=== PATIENT | male | born 1940 | race Caucasian/White ===

== ENCOUNTER → 2020-03-09 14:45 | Outpatient (BNVA) | payer MEDICARE, SELFPAY | PROVIDERS: PCP Internal Medicine; Referring Provider Internal Medicine; Visit Provider Internal Medicine Endocrinology, Diabetes & Metabolism | DX: E11.649 Type 2 diabetes mellitus with hypoglycemia without coma (principal); E11.22 Type 2 diabetes mellitus with diabetic chronic kidney disease; N18.4 Chronic kidney disease, stage 4 (severe); E11.40 Type 2 diabetes mellitus with diabetic neuropathy, unspecified; D64.9 Anemia, unspecified; E78.5 Hyperlipidemia, unspecified; Z79.4 Long term (current) 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 | CPT/HCPCS: 99214 ==

== ENCOUNTER 2020-04-10 09:32 | Outpatient (REF) | payer MEDICARE, SELFPAY ==
[2020-04-10 11:44] LABS: Imm Gran Abs Auto 0.01 X10*3/uL (0.00-0.03); Imm Gran Pct Auto 0.2 % (0.0-0.4)
[2020-04-10 11:46] LABS: Basophils Percent Auto 0.6 % (0-2); Eosinophils Absolute Auto 0.1 X10*3/uL (0.0-0.4); Eosinophils Percent Auto 2.4 % (0-4); Hematocrit 40.6 % (42-52); Hemoglobin 12.9 g/dl (14.0-18.0); Lymphocytes Absolute Auto 1.5 X10*3/uL (1.2-4.9); Lymphocytes Percent Auto 31.8 % (20-40); Mean Corpuscular HGB Conc 31.8 g/dl (31.0-36.0); Mean Corpuscular Hemoglobin 30.6 pg (27.0-33.0); Mean Corpuscular Volume 96.2 fL (80-98); Monocytes Absolute Auto 0.4 X10*3/uL (0.1-1.2); Monocytes Percent Auto 8.6 % (2-11); Neutrophils Absolute Auto 2.6 X10*3/uL (2.0-8.3); Neutrophils Percent Auto 56.4 % (45-73); Platelet Count 130 X10*3/uL (160-400); Red Blood Count 4.22 X10*6/uL (4.60-5.80); White Blood Count 4.7 X10*3/uL (4.8-10.8)
[2020-04-10 11:52] LABS: Red Cell Distribution Width 13.2 % (11.0-16.0)
[2020-04-10 11:59] LABS: Estimated Average Glucose 103 mg/dL; Hemoglobin A1C 113.7539 umol/L; Hemoglobin A1c % 5.2 %
[2020-04-10 12:03] LABS: Alanine Aminotransferase 17 U/L (0-40); Albumin Level 4.3 g/dL (3.5-5.0); Alkaline Phosphatase 58 U/L (39-117); Anion Gap 15 (12-20); Aspartate Amino Transferase 22 U/L (5-37); Bilirubin Total 0.9 mg/dL (0.0-1.0); Blood Urea Nitrogen 36 mg/dL (9-16); Calcium 9.2 mg/dL (8.4-10.2); Carbon Dioxide 27 mmol/L (22-29); Chloride 104 mmol/L (96-108); Cholesterol 212 mg/dL; Estimated Glomerular Filt Rate 30; Glucose Random 109 mg/dL (60-115); HDL Cholesterol 60 mg/dL; LDL Cholesterol Calculated 139 mg/dl; Potassium 4.4 mmol/l (3.3-5.1); Sodium 142 mmol/L (135-145); Total Protein 6.9 g/dL (6.5-8.0); Triglycerides 68 mg/dL
[2020-04-10 12:25] LABS: Thyroid Stimulating Hormone 3.48 mIU/mL (0.32-4.0)
[2020-04-10 12:30] LABS: Folate > 20.0 ng/mL (> or = 4.0); Vitamin B12 > 2000 pg/mL (200-900)
[2020-04-10 12:37] LABS: Creatinine Urine 66.45 mg/dL; Microalbum/Creatinine Ratio Ur 10.5 ug/mg cr
== END 2020-04-10 09:33 | disposition home or self-care (01) ==
LOC: HO.HMGCLDS 09:32
PROVIDERS: PCP Internal Medicine; Visit Provider Internal Medicine
DX: E11.65 Type 2 diabetes mellitus with hyperglycemia (principal); E78.00 Pure hypercholesterolemia, unspecified
CPT/HCPCS: 36415; 80053; 80061; 82043; 82607; 82746; 83036; 84443; 85025

== ENCOUNTER → 2020-05-21 11:38 | Outpatient (BNVA) | payer MEDICARE, SELFPAY | PROVIDERS: PCP Internal Medicine; Referring Provider Internal Medicine; Visit Provider Internal Medicine Cardiovascular Disease | DX: Z13.89 Encounter for screening for other disorder (principal) | CPT/HCPCS: Q3014 ==

== ENCOUNTER → 2020-07-13 12:38 | Outpatient (BNVA) | payer MEDICARE, SELFPAY | PROVIDERS: PCP Internal Medicine; Visit Provider Internal Medicine Endocrinology, Diabetes & Metabolism | DX: Z13.89 Encounter for screening for other disorder (principal) | CPT/HCPCS: Q3014 ==

== ENCOUNTER 2020-08-29 09:48 | Outpatient (REF) | payer MEDICARE, SELFPAY ==
[2020-08-29 11:11] LABS: MANUAL DIFF FLAG NO
[2020-08-29 11:26] LABS: Basophils Percent Auto 0.5 % (0-2); Eosinophils Absolute Auto 0.1 X10*3/uL (0.0-0.4); Eosinophils Percent Auto 1.7 % (0-4); Hematocrit 37.4 % (42-52); Imm Gran Abs Auto 0.03 X10*3/uL (0.00-0.03); Imm Gran Pct Auto 0.4 % (0.0-0.4); Lymphocytes Absolute Auto 1.2 X10*3/uL (1.2-4.9); Lymphocytes Percent Auto 14.5 % (20-40); Mean Corpuscular HGB Conc 32.1 g/dl (31.0-36.0); Mean Corpuscular Hemoglobin 30.1 pg (27.0-33.0); Mean Corpuscular Volume 93.7 fL (80-98); Mean Platelet Volume 12.3 fL (9.4-12.4); Monocytes Absolute Auto 0.5 X10*3/uL (0.1-1.2); Monocytes Percent Auto 6.2 % (2-11); Neutrophils Absolute Auto 6.3 X10*3/uL (2.0-8.3); Neutrophils Percent Auto 76.7 % (45-73); Platelet Count 214 X10*3/uL (160-400); Red Blood Count 3.99 X10*6/uL (4.60-5.80); Red Cell Distribution Width 13.5 % (11.0-16.0); White Blood Count 8.2 X10*3/uL (4.8-10.8)
[2020-08-29 11:46] LABS: Estimated Average Glucose 105 mg/dL; Hemoglobin A1c % 5.3 %
[2020-08-29 11:48] LABS: Alanine Aminotransferase 11 U/L (0-40); Albumin Level 4.2 g/dL (3.5-5.0); Alkaline Phosphatase 82 U/L (39-117); Anion Gap 19 (12-20); Aspartate Amino Transferase 19 U/L (5-37); Bilirubin Total 1.3 mg/dL (0.0-1.0); Blood Urea Nitrogen 36 mg/dL (9-16); Calcium 9.4 mg/dL (8.4-10.2); Carbon Dioxide 25 mmol/L (22-29); Chloride 97 mmol/L (96-108); Cholesterol 216 mg/dL; Estimated Glomerular Filt Rate 27; Glucose Fasting 161 mg/dL (60-99); HDL Cholesterol 37 mg/dL; LDL Cholesterol Calculated 148 mg/dl; Potassium 3.9 mmol/L (3.3-5.1); Sodium 137 mmol/L (135-145); Total Protein 6.9 g/dL (6.5-8.0); Triglycerides 157 mg/dL; Uric Acid 9.6 mg/dL (3.4-7.0)
[2020-08-29 11:54] LABS: Microalbum/Creatinine Ratio Ur 7.4 ug/mg cr
[2020-08-29 12:42] LABS: Vitamin B12 > 2000 pg/mL (200-900)
[2020-08-29 13:18] LABS: Thyroid Stimulating Hormone 2.23 uIU/mL (0.32-4.0)
[2020-08-30 06:37] LABS: LDL Cholesterol Direct 152 mg/dL (<100)
== END 2020-08-29 09:49 | disposition home or self-care (01) ==
LOC: HO.HMGCLDS 09:48
PROVIDERS: PCP Internal Medicine; Visit Provider Internal Medicine Endocrinology, Diabetes & Metabolism
DX: M25.549 Pain in joints of unspecified hand (principal); E78.00 Pure hypercholesterolemia, unspecified; I25.10 Atherosclerotic heart disease of native coronary artery without angina pectoris; N18.4 Chronic kidney disease, stage 4 (severe); E11.65 Type 2 diabetes mellitus with hyperglycemia; E11.649 Type 2 diabetes mellitus with hypoglycemia without coma; E11.42 Type 2 diabetes mellitus with diabetic polyneuropathy; E11.22 Type 2 diabetes mellitus with diabetic chronic kidney disease
CPT/HCPCS: 36415; 80053; 80061; 82043; 82607; 83036; 83721; 84443; 84550; 85025

== ENCOUNTER 2020-09-10 09:11 | Outpatient (REF) | payer MEDICARE, SELFPAY ==
[2020-09-10 11:30] LABS: MANUAL DIFF FLAG NO
[2020-09-10 11:46] LABS: Basophils Percent Auto 0.5 % (0-2); Eosinophils Absolute Auto 0.1 X10*3/uL (0.0-0.4); Eosinophils Percent Auto 1.8 % (0-4); Hematocrit 35.9 % (42-52); Hemoglobin 11.6 g/dl (14.0-18.0); Imm Gran Abs Auto 0.01 X10*3/uL (0.00-0.03); Imm Gran Pct Auto 0.2 % (0.0-0.4); Lymphocytes Absolute Auto 1.5 X10*3/uL (1.2-4.9); Lymphocytes Percent Auto 26.4 % (20-40); Mean Corpuscular HGB Conc 32.3 g/dl (31.0-36.0); Mean Corpuscular Hemoglobin 29.9 pg (27.0-33.0); Mean Corpuscular Volume 92.5 fL (80-98); Mean Platelet Volume 12.2 fL (9.4-12.4); Monocytes Absolute Auto 0.5 X10*3/uL (0.1-1.2); Neutrophils Absolute Auto 3.5 X10*3/uL (2.0-8.3); Neutrophils Percent Auto 62.1 % (45-73); Platelet Count 171 X10*3/uL (160-400); Red Blood Count 3.88 X10*6/uL (4.60-5.80); Red Cell Distribution Width 13.5 % (11.0-16.0); White Blood Count 5.6 X10*3/uL (4.8-10.8)
[2020-09-10 11:54] LABS: Cholesterol 208 mg/dL; HDL Cholesterol 37 mg/dL; LDL Cholesterol Calculated 138 mg/dl; Triglycerides 168 mg/dL
[2020-09-10 12:10] LABS: Alanine Aminotransferase 14 U/L (0-40); Albumin Level 4.1 g/dL (3.5-5.0); Alkaline Phosphatase 79 U/L (39-117); Anion Gap 15 (12-20); Aspartate Amino Transferase 20 U/L (5-37); Bilirubin Total 0.9 mg/dL (0.0-1.0); Blood Urea Nitrogen 31 mg/dL (9-16); Calcium 9.5 mg/dL (8.4-10.2); Carbon Dioxide 28 mmol/L (22-29); Chloride 96 mmol/L (96-108); Estimated Glomerular Filt Rate 27; Glucose Fasting 182 mg/dL (60-99); Potassium 4.1 mmol/L (3.3-5.1); Sodium 135 mmol/L (135-145); Total Protein 6.8 g/dL (6.5-8.0); Uric Acid 9.7 mg/dL (3.4-7.0)
[2020-09-10 12:14] LABS: Thyroid Stimulating Hormone 3.58 uIU/mL (0.32-4.0)
[2020-09-10 12:29] LABS: Estimated Average Glucose 111 mg/dL; Hemoglobin A1c % 5.5 %
[2020-09-10 12:39] LABS: Microalbumin Urine < 5.0 mg/L
[2020-09-10 12:50] LABS: Vitamin B12 > 2000 pg/mL (200-900)
[2020-09-11 08:18] LABS: LDL Cholesterol Direct 139 mg/dL (<100)
== END 2020-09-10 09:12 | disposition home or self-care (01) ==
LOC: HO.HMGCLDS 09:11
PROVIDERS: PCP Internal Medicine; Referring Provider Internal Medicine Endocrinology, Diabetes & Metabolism; Visit Provider Internal Medicine
DX: E11.42 Type 2 diabetes mellitus with diabetic polyneuropathy (principal); E11.65 Type 2 diabetes mellitus with hyperglycemia; E11.649 Type 2 diabetes mellitus with hypoglycemia without coma; N18.4 Chronic kidney disease, stage 4 (severe); E78.00 Pure hypercholesterolemia, unspecified; I25.10 Atherosclerotic heart disease of native coronary artery without angina pectoris; M25.549 Pain in joints of unspecified hand
CPT/HCPCS: 36415; 80053; 80061; 82043; 82607; 83036; 83721; 84443; 84550; 85025

== ENCOUNTER → 2020-11-14 13:30 | Outpatient (BNVA) | payer MEDICARE, SELFPAY | PROVIDERS: PCP Internal Medicine; Visit Provider Internal Medicine Endocrinology, Diabetes & Metabolism | CPT/HCPCS: Q3014 ==

== ENCOUNTER 2021-03-13 09:20 | Outpatient (REF) | payer MEDICARE, SELFPAY ==
[2021-03-13 11:20] LABS: MANUAL DIFF FLAG NO
[2021-03-13 11:26] LABS: Basophils Percent Auto 0.4 % (0-2); Eosinophils Absolute Auto 0.1 X10*3/uL (0.0-0.4); Eosinophils Percent Auto 2.8 % (0-4); Hematocrit 34.5 % (42-52); Hemoglobin 11.3 g/dl (14.0-18.0); Imm Gran Abs Auto 0.01 X10*3/uL (0.00-0.03); Imm Gran Pct Auto 0.2 % (0.0-0.4); Immature Retic Fraction 8.8 % (2.3-13.4); Lymphocytes Absolute Auto 1.9 X10*3/uL (1.2-4.9); Lymphocytes Percent Auto 37.8 % (20-40); Mean Corpuscular HGB Conc 32.8 g/dl (31.0-36.0); Mean Corpuscular Hemoglobin 31.5 pg (27.0-33.0); Mean Corpuscular Volume 96.1 fL (80-98); Mean Platelet Volume 12.8 fL (9.4-12.4); Monocytes Absolute Auto 0.5 X10*3/uL (0.1-1.2); Neutrophils Absolute Auto 2.5 X10*3/uL (2.0-8.3); Neutrophils Percent Auto 49.8 % (45-73); Platelet Count 128 X10*3/uL (160-400); Red Blood Count 3.59 X10*6/uL (4.60-5.80); Red Cell Distribution Width 13.1 % (11.0-16.0); Retic HGB Equivalent 35.1 pg (30.0-35.0); Reticulocyte Percent 1.3 % (0.5-1.8); Reticulocytes Absolute 0.047 X10*6/uL (0.026-0.095)
[2021-03-13 11:48] LABS: B Type Natriuretic Peptide 83 pg/mL (<100)
[2021-03-13 11:56] LABS: Alanine Aminotransferase 17 U/L (0-40); Alkaline Phosphatase 47 U/L (39-117); Anion Gap 12 (12-20); Aspartate Amino Transferase 23 U/L (5-37); Bilirubin Total 0.8 mg/dL (0.0-1.0); Blood Urea Nitrogen 28 mg/dL (9-16); Calcium 9.6 mg/dL (8.4-10.2); Carbon Dioxide 29 mmol/L (22-29); Chloride 104 mmol/L (96-108); Cholesterol 202 mg/dL; Estimated Glomerular Filt Rate 30; Glucose Random 105 mg/dL (60-115); HDL Cholesterol 37 mg/dL; Iron 62 mcg/dL (45-160); LDL Cholesterol Calculated 140 mg/dl; Percent Iron Saturation 26 % (15-50); Potassium 3.9 mmol/L (3.3-5.1); Sodium 141 mmol/L (135-145); Total Iron Binding Capacity 239 mcg/dL (228-428); Total Protein 6.4 g/dL (6.5-8.0); Triglycerides 126 mg/dL; Unsaturated Iron Binding 177 ug/dL; Uric Acid 7.9 mg/dL (3.4-7.0)
[2021-03-13 12:02] LABS: Creatinine Urine 80.51 mg/dL; Microalbumin Urine < 5.0 mg/L
[2021-03-13 12:05] LABS: Ferritin 200 ng/mL (20-250); Free T4 (Free Thyroxine) 0.86 ng/dL (0.71-1.85); Thyroid Stimulating Hormone 2.59 uIU/mL (0.32-4.0); Vitamin D 25-OH Total 96.6 ng/mL (>30)
[2021-03-13 12:19] LABS: Folate > 20.0 ng/mL (> or = 4.0); Vitamin B12 > 2000 pg/mL (200-900)
[2021-03-13 12:20] LABS: Estimated Average Glucose 94 mg/dL; Hemoglobin A1c % 4.9 %
== END 2021-03-13 09:21 | disposition home or self-care (01) ==
LOC: HO.HMGCLDS 09:20
PROVIDERS: PCP Internal Medicine; Visit Provider Internal Medicine
DX: E11.65 Type 2 diabetes mellitus with hyperglycemia (principal); E11.22 Type 2 diabetes mellitus with diabetic chronic kidney disease; N18.4 Chronic kidney disease, stage 4 (severe); E78.00 Pure hypercholesterolemia, unspecified; I42.9 Cardiomyopathy, unspecified
CPT/HCPCS: 36415; 80053; 80061; 82043; 82306; 82607; 82728; 82746; 83036; 83540; 83880; 84439; 84443; 84550; 85025; 85045

== ENCOUNTER 2021-09-16 08:38 | Outpatient (REF) | payer MEDICARE, SELFPAY ==
[2021-09-16 11:13] LABS: MANUAL DIFF FLAG NO
[2021-09-16 11:29] LABS: Basophils Percent Auto 0.4 % (0-2); Eosinophils Absolute Auto 0.2 X10*3/uL (0.0-0.4); Eosinophils Percent Auto 3.2 % (0-4); Hematocrit 35.9 % (42.0-52.0); Hemoglobin 11.2 g/dl (14.0-18.0); Imm Gran Abs Auto 0.01 X10*3/uL (0.00-0.03); Imm Gran Pct Auto 0.2 % (0.0-0.4); Lymphocytes Absolute Auto 1.5 X10*3/uL (1.2-4.9); Lymphocytes Percent Auto 31.6 % (20-40); Mean Corpuscular HGB Conc 31.2 g/dl (31.0-36.0); Mean Corpuscular Hemoglobin 30.4 pg (27.0-33.0); Mean Corpuscular Volume 97.6 fL (80.0-98.0); Monocytes Absolute Auto 0.4 X10*3/uL (0.1-1.2); Monocytes Percent Auto 7.6 % (2-11); Neutrophils Absolute Auto 2.7 x10*3/uL (2.0-8.3); Platelet Count 104 X10*3/uL (160-400); Red Blood Count 3.68 X10*6/uL (4.60-5.80); Red Cell Distribution Width 13.4 % (11.0-16.0); White Blood Count 4.7 X10*3/uL (4.8-10.8)
[2021-09-16 11:44] LABS: Alanine Aminotransferase 15 U/L (0-40); Alkaline Phosphatase 53 U/L (39-117); Anion Gap 13 (12-20); Aspartate Amino Transferase 22 U/L (5-37); Bilirubin Total 0.8 mg/dL (0.0-1.0); Blood Urea Nitrogen 27 mg/dL (9-16); Calcium 9.6 mg/dL (8.4-10.2); Carbon Dioxide 28 mmol/L (22-29); Chloride 104 mmol/L (96-108); Cholesterol 211 mg/dL; Estimated Glomerular Filt Rate 29; Glucose Random 136 mg/dL (60-115); HDL Cholesterol 47 mg/dL; LDL Cholesterol Calculated 141 mg/dl; Sodium 141 mmol/L (135-145); Total Protein 6.5 g/dL (6.5-8.0); Triglycerides 118 mg/dL
[2021-09-16 12:02] LABS: Estimated Average Glucose 105 mg/dL; Hemoglobin A1c % 5.3 %
[2021-09-16 12:10] LABS: Free T4 (Free Thyroxine) 0.91 ng/dL (0.71-1.85); Thyroid Stimulating Hormone 1.82 uIU/mL (0.32-4.0)
[2021-09-16 12:15] LABS: Folate 19.8 ng/mL (> or = 4.0); Vitamin B12 > 2000 pg/mL (200-900)
== END 2021-09-16 08:39 | disposition home or self-care (01) ==
LOC: HO.HMGCLDS 08:38
PROVIDERS: Visit Provider Internal Medicine
DX: I12.9 Hypertensive chronic kidney disease with stage 1 through stage 4 chronic kidney disease, or unspecified chronic kidney disease (principal); N18.4 Chronic kidney disease, stage 4 (severe); E11.22 Type 2 diabetes mellitus with diabetic chronic kidney disease; E11.65 Type 2 diabetes mellitus with hyperglycemia; E78.00 Pure hypercholesterolemia, unspecified
CPT/HCPCS: 36415; 80053; 80061; 82607; 82746; 83036; 84439; 84443; 85025

== ENCOUNTER 2021-12-13 09:11 | Outpatient (REF) | payer MEDICARE, SELFPAY ==
[2021-12-13 12:00] LABS: MANUAL DIFF FLAG NO
[2021-12-13 12:08] LABS: Basophils Percent Auto 0.8 % (0-2); Eosinophils Absolute Auto 0.1 X10*3/uL (0.0-0.4); Eosinophils Percent Auto 2.5 % (0-4); Hematocrit 37.4 % (42.0-52.0); Hemoglobin 11.8 g/dl (14.0-18.0); Imm Gran Abs Auto 0.01 X10*3/uL (0.00-0.03); Imm Gran Pct Auto 0.2 % (0.0-0.4); Lymphocytes Absolute Auto 1.6 X10*3/uL (1.2-4.9); Lymphocytes Percent Auto 31.9 % (20-40); Mean Corpuscular HGB Conc 31.6 g/dl (31.0-36.0); Mean Corpuscular Hemoglobin 30.3 pg (27.0-33.0); Mean Corpuscular Volume 95.9 fL (80.0-98.0); Mean Platelet Volume 12.7 fL (9.4-12.4); Monocytes Absolute Auto 0.4 X10*3/uL (0.1-1.2); Monocytes Percent Auto 7.4 % (2-11); Neutrophils Absolute Auto 2.9 x10*3/uL (2.0-8.3); Neutrophils Percent Auto 57.2 % (45-73); Platelet Count 116 X10*3/uL (160-400); Red Cell Distribution Width 13.2 % (11.0-16.0); White Blood Count 5.1 X10*3/uL (4.8-10.8)
[2021-12-13 12:39] LABS: Alanine Aminotransferase 21 U/L (0-40); Albumin Level 4.2 g/dL (3.5-5.0); Alkaline Phosphatase 64 U/L (39-117); Anion Gap 12 (12-20); Aspartate Amino Transferase 25 U/L (5-37); Bilirubin Total 0.6 mg/dL (0.0-1.0); Blood Urea Nitrogen 32 mg/dL (9-16); Calcium 9.4 mg/dL (8.4-10.2); Carbon Dioxide 28 mmol/L (22-29); Chloride 104 mmol/L (96-108); Cholesterol 203 mg/dL; Estimated Glomerular Filt Rate 26; Glucose Random 115 mg/dL (60-115); HDL Cholesterol 50 mg/dL; LDL Cholesterol Calculated 134 mg/dl; Potassium 4.1 mmol/L (3.3-5.1); Sodium 140 mmol/L (135-145); Total Protein 6.6 g/dL (6.5-8.0); Triglycerides 95 mg/dL
[2021-12-13 12:42] LABS: Free T4 (Free Thyroxine) 0.87 ng/dL (0.71-1.85); Thyroid Stimulating Hormone 1.88 uIU/mL (0.32-4.0)
[2021-12-13 14:45] LABS: Estimated Average Glucose 100 mg/dL; Hemoglobin A1c % 5.1 %
== END 2021-12-13 09:12 | disposition home or self-care (01) ==
LOC: HO.HMGCLDS 09:11
PROVIDERS: PCP Internal Medicine; Visit Provider Internal Medicine
DX: E11.65 Type 2 diabetes mellitus with hyperglycemia (principal); E78.00 Pure hypercholesterolemia, unspecified
CPT/HCPCS: 36415; 80053; 80061; 83036; 84439; 84443; 85025

== ENCOUNTER 2021-12-26 09:50 | Outpatient (REF) | payer MEDICARE, SELFPAY ==
--- NOTE | ~2021-12-26 | US_ITS ---
EXAMINATION: US RETROPERITONEAL COMPLETE (RENAL) CLINICAL INFORMATION: Dysuria. COMPARISON: US retroperitoneal limited (renal only) 01/20/2019. TECHNIQUE: Real-time imaging of the kidneys and bladder. FINDINGS: RIGHT KIDNEY: 9.2 x 4.3 x 4.2 cm (SAG x AP x TRV). The kidney is normal in size, contour, and echogenicity. Renal cortical thickness is normal. No renal calculi or hydronephrosis. Simple cysts measuring up to 1 cm in the mid and upper poles for which no imaging follow-up is recommended. LEFT KIDNEY: 9.9 x 4.2 x 4.5 cm (SAG x AP x TRV). The kidney is normal in size, contour, and echogenicity. Renal cortical thickness is normal. No renal calculi or hydronephrosis. Simple exophytic cysts in the midpole measuring 2.3 cm for which no imaging follow-up is recommended. BLADDER: Well distended and normal. Bilateral ureteral jets are demonstrated. Prevoid bladder volume is 244 mL. Postvoid bladder volume is 216 mL. The prostate volume is 13.1 mL. US/US retroperitoneal comp IMPRESSION: 1. No nephrolithiasis or hydronephrosis. 2. Increased post void urinary volumes, likely related with patient's apprehension to urinary according to the technologists note. Correlate clinically for the presence of outlet obstruction or neurogenic bladder.
[2021-12-26 13:58] LABS: Appearance Urine CLEAR; Color Urine YELLOW; Glucose Urine UA NEG (NEG); Leukocyte Esterase Urine TRACE (NEG); Nitrite Urine NEG (NEG); Specific Gravity - Urine <= 1.005 (1.005-1.025); Urine Blood NEG (NEG); Urine Ketones NEG (NEG); Urine Protein NEG (NEG-TRACE)
[2021-12-26 14:12] LABS: RBC Urine 0 /HPF (0); WBC Urine 0-2 /HPF (0-4)
== END 2021-12-26 09:51 | disposition home or self-care (01) ==
LOC: HO.HMGCX 09:50
PROVIDERS: PCP Internal Medicine; Visit Provider Internal Medicine
DX: R30.0 Dysuria (principal)
CPT/HCPCS: 76770; 81001

== ENCOUNTER → 2022-01-14 08:16 | Outpatient (BNVA) | payer MEDICARE, SELFPAY | PROVIDERS: PCP Internal Medicine | DX: N39.0 Urinary tract infection, site not specified (principal) | CPT/HCPCS: 51798; 99202 ==

== ENCOUNTER 2022-04-22 09:42 | Outpatient (REF) | payer MEDICARE, SELFPAY ==
[2022-04-22 11:37] LABS: MANUAL DIFF FLAG NO
[2022-04-22 11:53] LABS: Basophils Percent Auto 0.7 % (0-2); Eosinophils Absolute Auto 0.1 X10*3/uL (0.0-0.4); Eosinophils Percent Auto 2.4 % (0-4); Hematocrit 37.5 % (42.0-52.0); Imm Gran Abs Auto 0.01 X10*3/uL (0.00-0.03); Imm Gran Pct Auto 0.2 % (0.0-0.4); Immature Retic Fraction 10.5 % (2.3-13.4); Lymphocytes Absolute Auto 1.7 X10*3/uL (1.2-4.9); Lymphocytes Percent Auto 36.9 % (20-40); Mean Corpuscular Hemoglobin 31.5 pg (27.0-33.0); Mean Corpuscular Volume 98.4 fL (80.0-98.0); Mean Platelet Volume 12.8 fL (9.4-12.4); Monocytes Absolute Auto 0.4 X10*3/uL (0.1-1.2); Monocytes Percent Auto 7.7 % (2-11); Neutrophils Absolute Auto 2.4 x10*3/uL (2.0-8.3); Neutrophils Percent Auto 52.1 % (45-73); Platelet Count 122 X10*3/uL (160-400); Red Blood Count 3.81 X10*6/uL (4.60-5.80); Red Cell Distribution Width 13.3 % (11.0-16.0); Retic HGB Equivalent 35.1 pg (30.0-35.0); Reticulocyte Percent 1.3 % (0.5-1.8); Reticulocytes Absolute 0.048 X10*6/uL (0.026-0.095); White Blood Count 4.5 X10*3/uL (4.8-10.8)
[2022-04-22 11:57] LABS: Estimated Average Glucose 94 mg/dL; Hemoglobin A1c % 4.9 %
[2022-04-22 12:21] LABS: Ferritin 128 ng/mL (20-250); Thyroid Stimulating Hormone 2.76 uIU/mL (0.32-4.0)
[2022-04-22 12:23] LABS: Alanine Aminotransferase 19 U/L (0-40); Albumin Level 4.3 g/dL (3.5-5.0); Alkaline Phosphatase 54 U/L (39-117); Anion Gap 15 (12-20); Aspartate Amino Transferase 25 U/L (5-37); Bilirubin Total 0.8 mg/dL (0.0-1.0); Blood Urea Nitrogen 25 mg/dL (9-16); Calcium 9.6 mg/dL (8.4-10.2); Carbon Dioxide 27 mmol/L (22-29); Chloride 105 mmol/L (96-108); Cholesterol 228 mg/dL; Estimated Glomerular Filt Rate 29; Glucose Random 112 mg/dL (60-115); HDL Cholesterol 57 mg/dL; Iron 114 mcg/dL (45-160); LDL Cholesterol Calculated 153 mg/dl; Percent Iron Saturation 47 % (15-50); Potassium 4.8 mmol/L (3.3-5.1); Sodium 142 mmol/L (135-145); Total Iron Binding Capacity 242 mcg/dL (228-428); Total Protein 6.6 g/dL (6.5-8.0); Triglycerides 92 mg/dL; Unsaturated Iron Binding 128 ug/dL
[2022-04-22 12:41] LABS: Vitamin B12 > 2000 pg/mL (200-900)
[2022-04-22 14:42] LABS: Appearance Urine Clear; Color Urine Yellow; Glucose Urine UA Negative (Negative); Leukocyte Esterase Urine Negative (Negative); Nitrite Urine Negative (Negative); Specific Gravity - Urine 1.015 (1.005-1.025); Urine Blood Negative (Negative); Urine Ketones Negative (Negative); Urine Protein Negative (Neg-Trace)
[2022-04-22 14:55] LABS: Squamous Epithelial Cell Urine 0-2 /HPF (0-2)
[2022-04-22 14:57] LABS: Hyaline Casts Urine 0-2 /LPF (0-2); RBC Urine 0-2 /HPF (0-2); WBC Urine 0-5 /HPF (0-5)
[2022-04-22 14:58] LABS: Bacteria Urine None Seen (None Seen); Creatinine Urine 92.23 mg/dL; Microalbum/Creatinine Ratio Ur 8.6 ug/mg cr
== END 2022-04-22 09:43 | disposition home or self-care (01) ==
LOC: HO.HMGCLDS 09:42
PROVIDERS: PCP Internal Medicine; Visit Provider Internal Medicine
DX: E11.65 Type 2 diabetes mellitus with hyperglycemia (principal); E78.00 Pure hypercholesterolemia, unspecified
CPT/HCPCS: 36415; 80053; 80061; 81001; 82043; 82607; 82728; 82746; 83036; 83540; 84439; 84443; 85025; 85045

== ENCOUNTER 2022-08-08 14:47 | Emergency (ER) | payer MEDICARE, SELFPAY ==
[2022-08-08 15:00] VITALS: BP 138/54; BP 151/71; PULSE 48; PULSE 74; RESP 16; TEMP 36.7; O2SAT 100; O2SAT 98; BMI 25.0
--- NOTE | 2022-08-08 16:14 | ECG_ITS ---
Test Reason : FALL Blood Pressure : / mmHG Vent. Rate : 075 BPM Atrial Rate : 075 BPM P-R Int : 000 ms QRS Dur : 170 ms QT Int : 484 ms P-R-T Axes : 063 -49 076 degrees QTc Int : 540 ms Ventricular-paced rhythm Possible Atrial fibrillation Abnormal ECG When compared with ECG of 26-JUL-2019 12:58, Vent. rate has increased BY 2 BPM Referred By: Leann Calderon Electronically Signed By:MATHEW VIGIL MD
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
[2022-08-08 17:07] LABS: MANUAL DIFF FLAG NO
[2022-08-08 17:15] LABS: Basophils Percent Auto 0.2 % (0-2); Hemoglobin 11.1 g/dl (14.0-18.0); Imm Gran Abs Auto 0.03 X10*3/uL (0.00-0.03); Imm Gran Pct Auto 0.4 % (0.0-0.4); Lymphocytes Absolute Auto 1.1 X10*3/uL (1.2-4.9); Lymphocytes Percent Auto 13.2 % (20-40); Mean Corpuscular HGB Conc 32.6 g/dl (31.0-36.0); Mean Corpuscular Hemoglobin 31.2 pg (27.0-33.0); Mean Corpuscular Volume 95.5 fL (80.0-98.0); Monocytes Absolute Auto 0.4 X10*3/uL (0.1-1.2); Monocytes Percent Auto 4.5 % (2-11); Neutrophils Absolute Auto 6.9 x10*3/uL (2.0-8.3); Neutrophils Percent Auto 81.7 % (45-73); Platelet Count 127 X10*3/uL (160-400); Red Blood Count 3.56 X10*6/uL (4.60-5.80); Red Cell Distribution Width 13.1 % (11.0-16.0); White Blood Count 8.4 X10*3/uL (4.8-10.8)
[2022-08-08 17:23] LABS: IDNOW Serial# BCCEAD1C
[2022-08-08 17:24] LABS: COVID-19 Test Positive (Negative)
[2022-08-08 17:46] LABS: Alanine Aminotransferase 16 U/L (0-40); Alkaline Phosphatase 56 U/L (39-117); Anion Gap 16 (12-20); Aspartate Amino Transferase 41 U/L (5-37); Bilirubin Total 1.2 mg/dL (0.0-1.0); Blood Urea Nitrogen 22 mg/dL (9-16); Calcium 9.5 mg/dL (8.4-10.2); Carbon Dioxide 27 mmol/L (22-29); Chloride 98 mmol/L (96-108); Creatinine Clr Calc Pharmacy 34.1; Estimated Glomerular Filt Rate 33; Glucose Random 165 mg/dL (60-115); Magnesium 2.3 mg/dL (1.6-2.6); Potassium 4.6 mmol/L (3.3-5.1); Sodium 136 mmol/L (135-145); Total Protein 6.4 g/dL (6.5-8.0)
[2022-08-08 17:48] LABS: Troponin-I High Sensitivity 15.3 ng/L (<3.5-35.0)
[2022-08-08 18:39] LABS: Appearance Urine Clear; Color Urine Yellow; Glucose Urine UA Negative (Negative); Leukocyte Esterase Urine Negative (Negative); Nitrite Urine Negative (Negative); PH 6.5 (5.0-9.0); Urine Blood Negative (Negative); Urine Ketones Trace mg/dL (Negative); Urine Protein Negative (Neg-Trace)
--- NOTE | 2022-08-08 19:28 | PC.NURSE ---
Pt currently resting comfortably on stretcher, denies any pain or complaints. Awaiting elder protective services to determine plan of care for pt. Pt is also incidentally COVID positive, which pt is aware.
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
[2022-08-08 20:03] VITALS: BP 139/90; PULSE 75; RESP 15; O2SAT 96
== END 2022-08-08 20:34 | disposition home or self-care (01) ==
PROVIDERS: Nurse Practitioner Family; Emergency Provider Emergency Medicine; PCP Internal Medicine
DX: U07.1 COVID-19 (principal); I48.0 Paroxysmal atrial fibrillation; Z79.899 Other long term (current) drug therapy
CPT/HCPCS: 80053; 81003; 83735; 84484; 85025; 87635; 93005; 99284

== ENCOUNTER → 2022-08-12 10:49 | Outpatient (BNVA) | payer MEDICARE, SELFPAY | PROVIDERS: PCP Internal Medicine; Referring Provider Internal Medicine; Visit Provider Internal Medicine Cardiovascular Disease | DX: Z45.018 Encounter for adjustment and management of other part of cardiac pacemaker (principal); I42.9 Cardiomyopathy, unspecified; I48.0 Paroxysmal atrial fibrillation | CPT/HCPCS: 93280; 99212 ==

== ENCOUNTER 2022-10-15 09:02 | Outpatient (REF) | payer MEDICARE, SELFPAY ==
[2022-10-15 11:22] LABS: MANUAL DIFF FLAG NO
[2022-10-15 11:38] LABS: Basophils Percent Auto 0.5 % (0-2); Eosinophils Absolute Auto 0.1 X10*3/uL (0.0-0.4); Eosinophils Percent Auto 2.3 % (0-4); Hematocrit 36.5 % (42.0-52.0); Hemoglobin 11.9 g/dl (14.0-18.0); Lymphocytes Absolute Auto 1.3 X10*3/uL (1.2-4.9); Mean Corpuscular HGB Conc 32.6 g/dl (31.0-36.0); Mean Corpuscular Hemoglobin 31.3 pg (27.0-33.0); Mean Corpuscular Volume 96.1 fL (80.0-98.0); Mean Platelet Volume 13.2 fL (9.4-12.4); Monocytes Absolute Auto 0.4 X10*3/uL (0.1-1.2); Neutrophils Absolute Auto 3.7 x10*3/uL (2.0-8.3); Neutrophils Percent Auto 66.2 % (45-73); Platelet Count 107 X10*3/uL (160-400); Red Cell Distribution Width 13.9 % (11.0-16.0); Reticulocyte Percent 1.6 % (0.5-1.8); White Blood Count 5.5 X10*3/uL (4.8-10.8)
[2022-10-15 12:01] LABS: Alanine Aminotransferase 20 U/L (0-40); Albumin Level 4.1 g/dL (3.5-5.0); Alkaline Phosphatase 65 U/L (39-117); Anion Gap 12 (12-20); Aspartate Amino Transferase 25 U/L (5-37); Bilirubin Total 1.3 mg/dL (0.0-1.0); Blood Urea Nitrogen 30 mg/dL (9-16); Calcium 9.6 mg/dL (8.4-10.2); Carbon Dioxide 28 mmol/L (22-29); Chloride 106 mmol/L (96-108); Cholesterol 187 mg/dL; Estimated Glomerular Filt Rate 30; Glucose Random 140 mg/dL (60-115); HDL Cholesterol 54 mg/dL; Iron 93 mcg/dL (45-160); LDL Cholesterol Calculated 109 mg/dl; Percent Iron Saturation 41 % (15-50); Potassium 4.3 mmol/L (3.3-5.1); Sodium 142 mmol/L (135-145); Total Iron Binding Capacity 226 mcg/dL (228-428); Total Protein 6.4 g/dL (6.5-8.0); Triglycerides 122 mg/dL; Unsaturated Iron Binding 133 ug/dL
[2022-10-15 12:46] LABS: Ferritin 145 ng/mL (20-250); Folate > 20.0 ng/mL (> or = 4.0); Free T4 (Free Thyroxine) 0.95 ng/dL (0.71-1.85); Thyroid Stimulating Hormone 2.96 uIU/mL (0.32-4.0); Vitamin B12 > 2000 pg/mL (200-900)
== END 2022-10-15 09:03 | disposition home or self-care (01) ==
LOC: HO.HMGCLDS 09:02
PROVIDERS: PCP Internal Medicine; Visit Provider Internal Medicine
DX: E11.65 Type 2 diabetes mellitus with hyperglycemia (principal); N18.4 Chronic kidney disease, stage 4 (severe); E78.00 Pure hypercholesterolemia, unspecified
CPT/HCPCS: 36415; 80053; 80061; 82607; 82728; 82746; 83540; 84439; 84443; 85025; 85045

== ENCOUNTER 2023-02-06 10:47 | Outpatient (AMB) | payer MEDICARE, SELFPAY ==
--- NOTE | 2023-02-06 10:56 | A.OFFPC_ITS ---
Vital Signs 02/06/23 10:57 Height 6 ft 1 in Weight 209 lb 4 oz BMI 27.6 BP 144/76 H Blood Pressure Location Lt brachial Position Sitting Pulse 62 Pulse Source Pulse Oximeter Pulse Oximetry (%) 98 Oxygen Delivery Method Room Air Intake Visit Reasons: 3M follow up Allergies valsartan [From DIOVAN] Allergy (Mild, Verified 02/06/23 10:57) ITCHING losartan Allergy (Unknown, Verified 02/06/23 10:57) itch lisinopril [LISINOPRIL] Adverse Reaction (Intermediate, Verified 02/06/23 10:57) LEG CRAMPS., leg cramps Tobacco use date assessed: 07/30/22 Fall risk assessment: No Falls in past year Last assessed Fall Risk: 02/06/23 Dental Screening Dental Screen Date: 02/06/23 Did you have a dental visit in the last 12 months?: Yes Did you have a dental problem in the last 6 months where you did not have access to dental care?: No Was dental information given to patient?: Patient has dentist HPI 3M follow up HPI Details 82-year-old male with very compliant diabetes mellitus on insulin atrial fibrillation lumbar degenerative disc disease coronary artery disease hypercholesterolemia chronic kidney disease from history of NSAIDs coming in for follow-up. Last seen in October 2022. Blood work last done October 2022 does have anemia with thrombocytopenia but these are chronic. Patient has atrial fibrillation but declined anticoagulation. bp AT HOME IS GOOD decline cholesterol med [facility] Medical History (Updated 02/06/23 @ 11:14 by Nestor Almanza MD) BPH (benign prostatic hyperplasia) CAD (coronary artery disease) Cardiac pacemaker in situ Cardiomyopathy Chronic kidney disease (CKD) stage G4/A2, severely decreased glomerular filtration rate (GFR) between 15-29 mL/min/1.73 square meter and albuminuria creatinine ratio between 30-299 mg/g CKD (chronic kidney disease) stage 4, GFR 15-29 ml/min Complete heart block DDD (degenerative disc disease), lumbar Diabetic neuropathy 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 2 diabetes mellitus Dyslipidemia Frequent UTI Hypercholesterolemia Hypertension 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 mellitus FDC (current) 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 Paroxysmal atrial fibrillation Surgical History History of permanent cardiac pacemaker placement Hx of inguinal hernia surgery Family History Father Pancreatic cancer Mother Diabetes Alzheimers disease Social History Household Members: None Housing: House Alcohol intake: never Patient Tobacco Use Status: Never used Tobacco e-Cigarette/Vaping Use: Never Used Second Hand Smoke Exposure: No service: No Current occupational status: retired Current occupational exposures/hazards: No Cognitive needs: Yes (walker ) Hearing needs: Yes Vision needs: Yes Questionnaire PHQ-9 Over the last 2 weeks, how often have you been bothered by any of the following problems? 1. Little interest or pleasure in doing things: not at all 2. Feeling down, depressed, or hopeless: not at all 3. Trouble falling or staying asleep, or sleeping too much: not at all 4. Feeling tired or having little energy: not at all 5. Poor appetite or overeating: not at all 6. Feeling bad about yourself - or that you are a failure or have let yourself or your family down: not at all 7. Trouble concentrating on things, such as reading the newspaper or watching television: not at all 8. Moving or speaking so slowly that other people could have noticed. Or the opposite - being so fidgety or restless that you have been moving around a lot more than usual: not at all 9. Thoughts that you would be better off or of hurting yourself in some way: not at all Total score: 0 Depression Screening Interpretation: Negative Source: Developed by Drs. Avery Sherman, Shashi Barnett and colleagues, with an educational ngoc from [employer]. Thrive Questionnaire Date Thrive assessed: 07/30/22 AUDIT C Alcohol Use Questionnaire (AUDIT-C) 1. How often do you have a drink containing alcohol?: Never 2. How many drinks containing alcohol do you have on a typical day when you are drinking?: 1 or 2 (0) 3. How often do you have six or more drinks on one occasion?: Never Total Score: 0 Score Reviewed/Action Taken: No CRISTIAN-7 AMB Questionnaire CRISTIAN-7 Date CRISTIAN - 7 assessed: 07/17/22 Source: Developed by Drs. Avery Sherman, Shashi Barnett and colleagues, with an educational ngoc from [employer]. Physical exam (Primary Care) Vital Signs: Last Vital Signs Pulse 62 02/06/23 10:57 BP 144/76 H 02/06/23 10:57 Pulse Ox 98 02/06/23 10:57 Oxygen Delivery Method Room Air 02/06/23 10:57 BMI result Body Mass Index 27.6 Tobacco/Smoking Status: Tobacco use Status Tobacco use date assessed 07/30/22 02/06/23 10:56 Patient Tobacco Use Status Never used Tobacco 02/06/23 10:56 e-Cigarette/Vaping Use Never Used 02/06/23 10:56 PHQ-9: PHQ-9 Score PHQ-9: Total score 0 02/06/23 11:12 Depression Screening Interpretation: Negative Thrive Assessment: Date of Thrive Assessment Date Thrive assessed 07/30/22 02/06/23 10:56 Const General: alert; No acute distress Eyes Conjunctivae: conjunctivae normal Resp Auscultation: clear to auscultation bilaterally Cardio Rate: regular rate Rhythm: regular rhythm GI Inspection: Yes normal to inspection Extrem General: Yes normal to inspection and No edema Results AMB Hemoglobin A1c AMB Hemoglobin A1c 5.8 % Last Edit by MILAGRO Jaramillo on 02/06/23 11:13 Results Reviewed Results Reviewed: Laboratory Last Values Hgb A1c (Clinic) 5.8 % (4.0-6.0) 02/06/23 10:57 Assessment and Plan Assessment & Plan (1) CKD (chronic kidney disease) stage 4, GFR 15-29 ml/min: Code(s): N18.4 - Chronic kidney disease, stage 4 (severe) Plan: Continue to follow-up with Nephrology keep well hydrated avoid NSAIDs (2) Hypercholesterolemia: Comment: decline cholesterol med (03/2022) Code(s): E78.00 - Pure hypercholesterolemia, unspecified Plan: Avoid fried foods, chicken skin, eggs, butter margarine, pastries and meat. Be it pork or beef they have a lot of cholesterol LDL goal of less than 70 patient declined cholesterol medication (3) CAD (coronary artery disease): Code(s): I25.10 - Atherosclerotic heart disease of kake coronary artery without angina pectoris Qualifiers: Coronary Disease-Associated Artery/Lesion type: kake artery [place] vs. transplanted heart: kake heart Associated angina: without angina Qualified Code(s): I25.10 - Atherosclerotic heart disease of kake coronary artery without angina pectoris Plan: Control the cholesterol, weight, blood pressure, diabetes (4) DDD (degenerative disc disease), lumbar: Code(s): M51.36 - Other intervertebral disc degeneration, lumbar region Plan: Narcotic pain meds: Is being prescribed with the understanding that these medications are potentially addictive and should be used only when absolutely necessary and must always be secured. Any remaining pills should be safely disposed off appropriately. Patient is advised that narcotics can impaired judgment and one should not drive or operate heavy machinery while taking these medications. Never share these medications with anybody and do not leave them unattended. They will not be replaced under any circumstances. (5) Hypertension: Code(s): I10 - Essential (primary) hypertension Qualifiers: Hypertension type: essential hypertension Qualified Code(s): I10 - Essential (primary) hypertension Plan: Continue with blood pressure medication. Decrease salt intake and exercise patient is taking hydrochlorothiazide, atenolol (6) Paroxysmal atrial fibrillation: Comment: 05/2020 cardiology notes on anticoagulation- decline by patient Code(s): I48.0 - Paroxysmal atrial fibrillation Plan: Declined anticoagulation (7) Cardiomyopathy: Code(s): I42.9 - Cardiomyopathy, unspecified Qualifiers: Cardiomyopathy type: unspecified Qualified Code(s): I42.9 - Cardiomyopathy, unspecified Plan: Continue to follow-up with cardiology (8) Type 2 diabetes mellitus with hyperglycemia: Comment: REferred to Jose Luis Turcios- awaiting schedule Code(s): E11.65 - Type 2 diabetes mellitus with hyperglycemia Qualifiers: Diabetes mellitus terminal manager insulin use: without shelter use Qualified Code(s): E11.65 - Type 2 diabetes mellitus with hyperglycemia Plan: Decrease the amount of carbohydrate intake, pasta, bread, rice and potatoes are all sugar and that is aside from all the sweet stuff, remember that fruits are good but they are Sweet also. Hemoglobin A1c goal of less than 7.0 patient is on insulin Orders: Orders Vitamin B12 and Folate 3 Months E11.65 - Type 2 diabetes mellitus with hyperglycemia Comprehensive Met. Panel 3 Months E11.65 - Type 2 diabetes mellitus with hyperglycemia Hemoglobin A1c 3 Months E11.65 - Type 2 diabetes mellitus with hyperglycemia Lipid Panel 3 Months E11.65 - Type 2 diabetes mellitus with hyperglycemia, E78.00 - Pure hypercholesterolemia, unspecified Free T4 (Free Thyroxine) 3 Months E11.65 - Type 2 diabetes mellitus with hyperglycemia Thyroid Stimulating Hormone 3 Months E11. - Type 2 diabetes mellitus with hyperglycemia Complete Blood Count Auto Diff 3 Months E11.65 - Type 2 diabetes mellitus with hyperglycemia AMB Hemoglobin A1c Today Z13.9 - Encounter for screening, unspecified Coding Level of Care Code Est Pt Level 4 (79715) Diagnoses CKD (chronic kidney disease) stage 4, GFR 15-29 ml/min N18.4 Hypercholesterolemia E78.00 CAD (coronary artery disease) I25.10 Coronary Disease-Associated Artery/Lesion type: kake artery [place] vs. transplanted heart: kake heart Associated angina: without angina DDD (degenerative disc disease), lumbar M51.36 Hypertension I10 Hypertension type: essential hypertension Paroxysmal atrial fibrillation I48.0 Cardiomyopathy I42.9 Cardiomyopathy type: unspecified Type 2 diabetes mellitus with hyperglycemia E11.65 Diabetes mellitus terminal manager insulin use: without shelter use
[2023-02-06 10:57] VITALS: BP 144/76; PULSE 62; O2SAT 98; BMI 27.6
== END 2023-02-06 11:31 | disposition home or self-care (01) ==
PROVIDERS: PCP Internal Medicine; Visit Provider Internal Medicine
DX: I12.9 Hypertensive chronic kidney disease with stage 1 through stage 4 chronic kidney disease, or unspecified chronic kidney disease (principal); N18.4 Chronic kidney disease, stage 4 (severe); E11.65 Type 2 diabetes mellitus with hyperglycemia; I42.9 Cardiomyopathy, unspecified; I48.0 Paroxysmal atrial fibrillation; E78.00 Pure hypercholesterolemia, unspecified; I25.10 Atherosclerotic heart disease of native coronary artery without angina pectoris; M51.36 Other intervertebral disc degeneration, lumbar region
CPT/HCPCS: 83036; 99214

== ENCOUNTER 2023-02-12 13:31 | Outpatient (AMB) | payer MEDICARE, SELFPAY ==
--- NOTE | 2023-02-12 13:46 | A.OFFVIS_ITS ---
Intake Vital Signs 02/12/23 13:49 Height 6 ft 1 in Weight 209 lb 7.026 oz BMI 27.6 BP 124/62 Blood Pressure Location Lt brachial Position Sitting Pulse 60 Intake Visit Reasons: 6 mth f/up w/ pacer ck Intake Note: 6 month follow-up with [employer] check feeling good Street [employer] Building Decorator Required: No Allergies valsartan [From DIOVAN] Allergy (Mild, Verified 02/06/23 10:57) ITCHING losartan Allergy (Unknown, Verified 02/06/23 10:57) itch lisinopril [LISINOPRIL] Adverse Reaction (Intermediate, Verified 02/06/23 10:57) LEG CRAMPS., leg cramps Medication List - Last Reconciled 02/12/23 by Dionisio Cardenas MD atenolol 25 mg PO DAILY blood sugar diagnostic 1 strip miscellaneous QID 30 days hydrochlorothiazide 25 mg PO DAILY PRN 90 days insulin aspart (niacinamide) 100 unit/mL (3 mL) (Fiasp FlexTouch U-100 Insulin) 6 units with breakfast, 7 units with lunch and 8 units with dinner. subcut 3 times a day; 90 days insulin degludec (Tresiba FlexTouch U-100 insulin) 8 units (0.08 mL) subcut BEDTIME 90 days latanoprost 0.005% 1 drp ophthalmic (eye) DAILY lidocaine 4% (Aspercreme (lidocaine)) 1 patch topical DAILY PRN oxycodone 10 mg PO QID PRN pen needle, diabetic (BD Cherry 2nd Gen Pen Needle) 4 times a day [Pro REnal +D As directed] [RENADRYL As directed] HPI HPI Comments History of Present Illness Details Bandar comes for follow-up. No obvious cardiac symptoms. No prolonged palpitation irregular heartbeat. No lightheadedness, syncope. Complains of overall weakness and thinks this is related to his anemia and chronic kidney disease. He denies any orthopnea, PND, leg edema. Has cut down as atenolol due to lower blood pressure. Currently is retired. Comes for pacemaker evaluation. 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 2 diabetes mellitus MCC (current) 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 Dyslipidemia CKD (chronic kidney disease) stage 4, GFR 15-29 ml/min Surgical History History of permanent cardiac pacemaker placement Hx of inguinal hernia surgery Family History Father Pancreatic cancer Mother Diabetes Alzheimers disease Social History Household Members: None Housing: House Alcohol intake: never Patient Tobacco Use Status: Never used Tobacco e-Cigarette/Vaping Use: Never Used Second Hand Smoke Exposure: No service: No Current occupational status: retired Current occupational exposures/hazards: No Cognitive needs: Yes (walker ) Hearing needs: Yes Vision needs: Yes Review of Systems Const Denies chills, Denies fatigue, Denies fever(s), Denies frequent falls, Denies weakness, Denies weight gain and Denies weight loss ENT Denies dizziness Card Denies chest pain, Denies leg edema, Denies lightheadedness, Denies palpitations, Denies dyspnea, Denies dyspnea on exertion, Denies orthopnea and Denies other (loss of consciousness) Resp Denies cough, Denies dyspnea and Denies dyspnea on exertion GI Denies hematochezia and Denies change in stool character Musc Denies abnormal gait, Denies muscle weakness, Denies numbness, Denies radiating pain into limb and Denies tingling Neuro Denies abnormal gait, Denies dizziness, Denies frequent falls, Denies numbness, Denies tingling and Denies weakness Endo Denies fatigue and Denies palpitations Physical Exam Vital Signs: Last Vital Signs Pulse 60 02/12/23 13:49 BP 124/62 02/12/23 13:49 BMI result Body Mass Index 27.6 Const General: cooperative, comfortable, no acute distress, alert, awake and tired appearing Nutritional Appearance: average body habitus and other ( frail elderly man) Orientation/consciousness: patient oriented x3 Limitations: ambulation with walker Neck Neck: Yes trachea midline, Yes supple and Yes no JVD Resp Effort & Inspection: normal respiratory effort Auscultation: clear to auscultation bilaterally Cardio Jugular venous distension: no JVD Palpation: normal PMI Rate: regular rate Rhythm: regular rhythm Heart sounds: S1 normal heart sound present, S2 normal heart sound present, no click, no gallops, no murmurs and no rubs Skin General skin exam: no rashes or lesions noted and ecchymosis Neuro General: patient oriented x3 and no focal motor deficits Extrem General: Yes no clubbing, cyanosis or edema Office Procedures Cardiac Device Check Cardiac Device Check Details: Dual-chamber Medtronic pacemaker in place. Programmed in DDD at 60 beats per minute. Battery life is about 2 and half years. Ventricular pacing 100% time. Atrial sensing is adequate. Ventricular sensing could not be checked. Atrial pacing thresholds adequate. Ventricular pacing thresholds adequate. Pacing lead impedance is stable. No significant episodes of atrial fibrillation [place] [id number] Cardiac Device Check, pacemaker dual lead Procedure code (CPT) selection complete Assessment & Plan Assessment & Plan (1) Cardiomyopathy: Code(s): I42.9 - Cardiomyopathy, unspecified Qualifiers: Cardiomyopathy type: unspecified Qualified Code(s): I42.9 - Cardiomyopathy, unspecified Plan: Cardiomyopathy with prior [id number] LV systolic dysfunction. No signs or symptoms of clinical congestive heart failure at this point time. Continue metoprolol therapy for neurohormonal modulation. Continue aggressive blood pressure control. Clinically euvolemic and well compensated. Signs and symptoms of heart failure were discussed. (2) Paroxysmal atrial fibrillation: Comment: 05/2020 cardiology notes on anticoagulation- decline by patient Code(s): I48.0 - Paroxysmal atrial fibrillation Plan: Paroxysmal atrial fibrillation without any obvious clinical recurrence in the last 6 months and by pacer telemetry. Continue atenolol therapy. Patient declined oral anticoagulation the past. Avoidance of stimulants was discussed. Continue to monitor by pacer telemetry. (3) Cardiac pacemaker in situ: Code(s): Z95.0 - Presence of cardiac pacemaker Plan: Cardiac pacemaker in-situ for complete heart block. Pacemaker is working well. Follow up in the clinic in 6 months time. Follow up in the clinic in 6 months time, sooner p.r.n.. Thank you for allowing me to partake in his care Medications: Changed From atenolol 50 mg PO DAILY 90 days 90 tabs 3RF I10 - Essential (primary) hypertension To atenolol 25 mg PO DAILY I10 - Essential (primary) hypertension Coding Level of Care Code Est Pt Level 4 (61423) Diagnoses Cardiomyopathy, unspecified type I42.9 Cardiomyopathy type: unspecified Paroxysmal atrial fibrillation I48.0 Cardiac pacemaker in situ Z95.0 CPT Codes Cardiac Device Check - Cardiac Device 2: 14152-TH Cardiac Device Check, pacemaker dual lead ([id number])
[2023-02-12 13:49] VITALS: BP 124/62; PULSE 60; BMI 27.6
== END 2023-02-12 14:08 | disposition home or self-care (01) ==
PROVIDERS: PCP Internal Medicine; Referring Provider Internal Medicine; Visit Provider Internal Medicine Cardiovascular Disease
DX: I42.9 Cardiomyopathy, unspecified (principal); I48.0 Paroxysmal atrial fibrillation; Z95.0 Presence of cardiac pacemaker
CPT/HCPCS: 93280; 99214

== ENCOUNTER → 2023-02-12 13:31 | Outpatient (BNVA) | payer MEDICARE, SELFPAY | PROVIDERS: PCP Internal Medicine; Referring Provider Internal Medicine; Visit Provider Internal Medicine Cardiovascular Disease | DX: I42.9 Cardiomyopathy, unspecified (principal); I48.0 Paroxysmal atrial fibrillation; E11.22 Type 2 diabetes mellitus with diabetic chronic kidney disease; E11.649 Type 2 diabetes mellitus with hypoglycemia without coma; I12.9 Hypertensive chronic kidney disease with stage 1 through stage 4 chronic kidney disease, or unspecified chronic kidney disease; N18.4 Chronic kidney disease, stage 4 (severe); R94.4 Abnormal results of kidney function studies; Z95.0 Presence of cardiac pacemaker; Z79.4 Long term (current) 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 | CPT/HCPCS: 93280; 99212 ==

== ENCOUNTER 2023-03-20 11:32 | Outpatient (AMB) | payer MEDICARE, SELFPAY ==
--- NOTE | 2023-03-20 12:06 | A.OFFVIS_ITS ---
Intake Intake Visit Reasons: 1 year follow up UTI Intake Note: Patient is Present for Follow Up UTI Urology Medication: None Antibiotic Allergies: None Blood Thinners:None Pharmacy: [facility] Allergies valsartan [From DIOVAN] Allergy (Mild, Verified 03/20/23 12:07) ITCHING losartan Allergy (Unknown, Verified 03/20/23 12:07) itch lisinopril [LISINOPRIL] Adverse Reaction (Intermediate, Verified 03/20/23 12:07) LEG CRAMPS., leg cramps HPI HPI Comments History of Present Illness Details Zacarias is a pleasant male. He is a patient of Dr. Falk. He seen for the following urologic conditions - lower urinary tract symptoms - recurrent UTI Lower urinary tract symptoms Unable to tolerate oral medications secondary to hypotension Recurring UTI Has been on demand os and cranberry pills He says he finds this helpful Maintaining fluid intake [facility] Medical History Frequent UTI Cardiomyopathy Cardiac pacemaker in situ Complete heart block DDD (degenerative disc disease), lumbar CAD (coronary artery disease) BPH (benign prostatic hyperplasia) Chronic kidney disease (CKD) stage G4/A2, severely decreased glomerular filtration rate (GFR) between 15-29 mL/min/1.73 square meter and albuminuria creatinine ratio between 30-299 mg/g Hypercholesterolemia Paroxysmal atrial fibrillation Hypertension 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 2 diabetes mellitus 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 Dyslipidemia CKD (chronic kidney disease) stage 4, GFR 15-29 ml/min Surgical History History of permanent cardiac pacemaker placement Hx of inguinal hernia surgery Family History Father Pancreatic cancer Mother Diabetes Alzheimers disease Social History Household Members: None Housing: House Alcohol intake: never Patient Tobacco Use Status: Never used Tobacco e-Cigarette/Vaping Use: Never Used Second Hand Smoke Exposure: No service: No Current occupational status: retired Current occupational exposures/hazards: No Cognitive needs: Yes (walker ) Hearing needs: Yes Vision needs: Yes Review of Systems Const Denies chills and Denies fever(s) Card Reports no additional complaints and Denies syncope Resp Denies cough GI Denies abdominal pain and Denies heartburn Reports as per HPI and Denies change in libido Neuro Denies syncope Psych Denies change in libido Endo Denies change in libido Physical Exam Const General: cooperative, healthy appearing, comfortable and no acute distress Orientation/consciousness: patient oriented x3 HEENT Face and sinus: Yes normal facial exam Mouth: moist mucous membranes Neck Neck: Yes normal visual inspection, Yes full ROM and Yes trachea midline Chest Chest palpation & inspection: normal inspection of the chest Resp Effort & Inspection: normal respiratory effort, able to speak in complete sentences and no respiratory distress GI Inspection: Yes normal to inspection Back/Spine/Pelvis Cervical Spine: normal cervical lordosis Thoracic/Lumbar Spine: thoracic and lumbar spine normal to inspection Skin General skin exam: no rashes or lesions noted Neuro General: patient oriented x3, gait normal, tone normal and moves all extremities Extrem General: Yes normal to inspection and Yes capillary refill normal Results AMB Urinalysis, Automated UA Leukoctes 0 Elizabet/uL Last Edit by Carissa John [facility] on 03/20/23 12:19 UA Nitrite Negative Last Edit by Carissa John [facility] on 03/20/23 12:19 UA Urobilinogen 0.2 mg/dL Last Edit by Carissa John [facility] on 03/20/23 12:1 9 UA Protein 0 mg/dL Last Edit by Carissa John [facility] on 03/20/23 12:19 UA pH 5.5 Last Edit by Carissa John [facility] on 03/20/23 12:19 UA Blood 0 Luigi/uL Last Edit by Carissa John [facility] on 03/20/23 12:19 UA Specific Bowie 1.015 Last Edit by Carissa John [facility] on 03/20/23 12: 19 UA Ketone Negative Last Edit by Carissa John [facility] on 03/20/23 12:19 UA Bilirubin 0 mg/dL Last Edit by Carissa John [facility] on 03/20/23 12:19 UA Glucose 0 mg/dL Last Edit by Carissa John [facility] on 03/20/23 12:19 Results Reviewed Results Reviewed: Laboratory Last Values Urine pH (Auto) 5.5 03/20/23 12:18 Specific Bowie (Auto) 1.015 03/20/23 12:18 Urine Protein (Auto) 0 mg/dL 03/20/23 12:18 Glucose (UA)(Auto) 0 mg/dL 03/20/23 12:18 Urine Ketones (Auto) Negative 03/20/23 12:18 Urine Blood (Auto) 0 Luigi/uL 03/20/23 12:18 Urine Nitrite (Auto) Negative 03/20/23 12:18 Urine Bilirubin (Auto) 0 mg/dL 03/20/23 12:18 Urine Urobilinogen (Auto) 0.2 mg/dL 03/20/23 12:18 Leukocyte Esterase (Auto) 0 Elizabet/uL 03/20/23 12:18 Assessment & Plan Assessment & Plan (1) Frequent UTI: Code(s): N39.0 - Urinary tract infection, site not specified Plan Twelve month follow up Orders: Orders AMB Urinalysis Automated 03/20/23 Z13.9 - Encounter for screening, unspecified Patient Instructions: Imaging studies, laboratory and physical exam results were discussed and reviewed in detail. No major barriers to patient understanding were identified. An opportunity to ask questions regarding the treatment plan was provided. All questions were answered. The patient expressed understanding and agreement with the above treatment plan. The patient is aware they should contact our office by phone for worsening of their current condition or the appearance of new urologic symptoms. Compliance is encouraged with any medications and followup testing that is ordered. It is a privilege to participate in the urologic care of your patient. If you have any questions or concerns regarding treatment for the above conditions, or other urologic issues, please do not hesitate to contact me. The office telephone contact is [phone]. This note is constructed using voice recognition software. While every effort has been made to ensure accuracy cap inspector errors may have been included. Yours sincerely, Dr Greg Gtz MD, [facility] Urology Providers of Expert, Compassionate Care for the Genitourinary System Coding Level of Care Code Est Pt Level 4 (47489) Diagnoses Frequent UTI N39.0
== END 2023-03-20 12:52 | disposition home or self-care (01) ==
PROVIDERS: PCP Internal Medicine; Visit Provider Urology
DX: N39.0 Urinary tract infection, site not specified (principal)
CPT/HCPCS: 99213

== ENCOUNTER → 2023-03-20 11:32 | Outpatient (BNVA) | payer MEDICARE, SELFPAY | PROVIDERS: Visit Provider Urology | DX: N39.0 Urinary tract infection, site not specified (principal) | CPT/HCPCS: 81003; 99212 ==

== ENCOUNTER 2023-05-11 09:08 | Outpatient (REF) | payer MEDICARE, SELFPAY ==
[2023-05-11 11:15] LABS: MANUAL DIFF FLAG NO
[2023-05-11 11:50] LABS: Basophils Percent Auto 0.7 % (0-2); Eosinophils Absolute Auto 0.2 X10*3/uL (0.0-0.4); Hematocrit 38.4 % (42.0-52.0); Hemoglobin 12.2 g/dl (14.0-18.0); Imm Gran Abs Auto 0.01 X10*3/uL (0.00-0.03); Imm Gran Pct Auto 0.2 % (0.0-0.4); Lymphocytes Percent Auto 34.8 % (20-40); Mean Corpuscular HGB Conc 31.8 g/dl (31.0-36.0); Mean Corpuscular Hemoglobin 30.7 pg (27.0-33.0); Mean Corpuscular Volume 96.7 fL (80.0-98.0); Mean Platelet Volume 12.7 fL (9.4-12.4); Monocytes Absolute Auto 0.4 X10*3/uL (0.1-1.2); Neutrophils Percent Auto 54.3 % (45-73); Platelet Count 128 X10*3/uL (160-400); Red Blood Count 3.97 X10*6/uL (4.60-5.80); Red Cell Distribution Width 13.3 % (11.0-16.0); White Blood Count 5.6 X10*3/uL (4.8-10.8)
[2023-05-11 12:05] LABS: Estimated Average Glucose 105 mg/dL; Hemoglobin A1c % 5.3 % (<6.0)
[2023-05-11 12:12] LABS: Alanine Aminotransferase 17 U/L (0-40); Albumin Level 4.1 g/dL (3.5-5.0); Alkaline Phosphatase 57 U/L (39-117); Anion Gap 11 (12-20); Aspartate Amino Transferase 23 U/L (5-37); Bilirubin Total 0.7 mg/dL (0.0-1.0); Blood Urea Nitrogen 30 mg/dL (9-16); Calcium 9.8 mg/dL (8.4-10.2); Carbon Dioxide 27 mmol/L (22-29); Chloride 109 mmol/L (96-108); Cholesterol 175 mg/dL (<200); Estimated Glomerular Filt Rate 31; Glucose Random 125 mg/dL (60-115); HDL Cholesterol 56 mg/dL (>40); LDL Cholesterol Calculated 99 mg/dL (<100); Potassium 4.1 mmol/L (3.3-5.1); Sodium 143 mmol/L (135-145); Triglycerides 100 mg/dL (<150)
[2023-05-11 12:14] LABS: Free T4 (Free Thyroxine) 0.85 ng/dL (0.71-1.85); Thyroid Stimulating Hormone 4.32 uIU/mL (0.32-4.0)
[2023-05-11 12:30] LABS: Folate 17.8 ng/mL (> or = 4.0); Vitamin B12 > 2000 pg/mL (200-900)
== END 2023-05-11 09:09 | disposition home or self-care (01) ==
LOC: HO.HMGCLDS 09:08
PROVIDERS: PCP Internal Medicine; Visit Provider Internal Medicine
DX: E11.65 Type 2 diabetes mellitus with hyperglycemia (principal); E78.00 Pure hypercholesterolemia, unspecified
CPT/HCPCS: 36415; 80053; 80061; 82607; 82746; 83036; 84439; 84443; 85025

== ENCOUNTER 2023-05-25 11:01 | Outpatient (AMB) | payer MEDICARE, SELFPAY ==
[2023-05-25 11:02] VITALS: BP 160/72; PULSE 60; O2SAT 100; BMI 28.6
--- NOTE | 2023-05-25 11:02 | MHC.PC.OV ---
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 Allergies valsartan [From DIOVAN] Allergy (Mild, Verified 05/25/23 11:03) ITCHING losartan Allergy (Unknown, Verified 05/25/23 11:03) itch lisinopril [LISINOPRIL] Adverse Reaction (Intermediate, Verified 05/25/23 11:03) LEG CRAMPS., leg cramps Tobacco use date assessed: 05/25/23 Fall risk assessment: No Falls in past year Last assessed Fall Risk: 05/25/23 Dental Screening Dental Screen Date: 05/25/23 Did you have a dental visit in the last 12 months?: No Did you have a dental problem in the last 6 months where you did not have access to dental care?: No HPI dm HPI Details 82-year-old male with a history of coronary artery disease hypercholesterolemia chronic kidney disease diabetes mellitus on insulin atrial fibrillation hypertension cardiomyopathy and chronic kidney disease stage 4 last seen in February 2023. Patient's diabetes is under control. Patient follows up with urologist for the recurrent UTI history continuing to just follow-up. As the patient is intolerant of medications for urology due to hypotension.. Received also note from cardiology February 2023 blood pressure medication adjustment due to lower blood pressure anticoagulation for atrial fibrillation declined by patient but has had no clinical recurrence in the last 6 months as for the cardiac pacemaker for heart block continue to work well. BP at home 123/66, 61, 129/69 60, 123/70 60 so BP is good. BS has been good now has the freestyle jolanta- discussed weight gain- goes to [facility] discussed my concern . REPLACED BY [facility] Medical History Frequent UTI Cardiomyopathy Cardiac pacemaker in situ Complete heart block DDD (degenerative disc disease), lumbar CAD (coronary artery disease) BPH (benign prostatic hyperplasia) Chronic kidney disease (CKD) stage G4/A2, severely decreased glomerular filtration rate (GFR) between 15-29 mL/min/1.73 square meter and albuminuria creatinine ratio between 30-299 mg/g Hypercholesterolemia Paroxysmal atrial fibrillation Hypertension 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 2 diabetes mellitus 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 Dyslipidemia CKD (chronic kidney disease) stage 4, GFR 15-29 ml/min Surgical History History of permanent cardiac pacemaker placement Hx of inguinal hernia surgery Family History Father Pancreatic cancer Mother Diabetes Alzheimers disease Social History Household Members: None Housing: House Alcohol intake: never Patient Tobacco Use Status: Never used Tobacco e-Cigarette/Vaping Use: Never Used Second Hand Smoke Exposure: No service: No Current occupational status: retired Current occupational exposures/hazards: No Cognitive needs: Yes (walker ) Hearing needs: Yes Vision needs: Yes Questionnaire Thrive Questionnaire Date Thrive assessed: 07/30/22 AUDIT C Alcohol Use Questionnaire (AUDIT-C) 1. How often do you have a drink containing alcohol?: Never 2. How many drinks containing alcohol do you have on a typical day when you are drinking?: 1 or 2 (0) 3. How often do you have six or more drinks on one occasion?: Never Total Score: 0 Score Reviewed/Action Taken: No CRISTIAN-7 AMB Questionnaire CRISTIAN-7 Date CRISTIAN - 7 assessed: 07/17/22 Source: Developed by Drs. Avery Sherman, Ebony Callahan, Shashi Goff and colleagues, with an educational ngoc from [employer]. Physical exam (Primary Care) Vital Signs: Last Vital Signs Pulse 60 05/25/23 11:02 BP 160/72 H 05/25/23 11:02 Pulse Ox 100 05/25/23 11:02 Oxygen Delivery Method Room Air 05/25/23 11:02 BMI result Body Mass Index 28.6 Tobacco/Smoking Status: Tobacco use Status Tobacco use date assessed 05/25/23 05/25/23 11:03 Patient Tobacco Use Status Never used Tobacco 05/25/23 11:03 e-Cigarette/Vaping Use Never Used 05/25/23 11:03 Thrive Assessment: Date of Thrive Assessment Date Thrive assessed 02/22/23 12/18/23 11:03 Const General: alert; No acute distress Eyes Conjunctivae: conjunctivae normal Resp Auscultation: clear to auscultation bilaterally Cardio Rate: regular rate Rhythm: regular rhythm GI Inspection: Yes normal to inspection Extrem General: Yes normal to inspection and No edema Assessment and Plan Assessment & Plan (1) Paroxysmal atrial fibrillation: Comment: 05/2020 cardiology notes on anticoagulation- decline by patient Code(s): I48.0 - Paroxysmal atrial fibrillation Plan: Patient follows up with Cardiology none recurrence in the last 6 months declined anticoagulation (2) CAD (coronary artery disease): Code(s): I25.10 - Atherosclerotic heart disease of [place] coronary artery without angina pectoris Qualifiers: Coronary Disease-Associated Artery/Lesion type: [place] artery [place] vs. 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 A1c of less than 7.0 patient has had tight control with insulin and declined any changes (4) Hypercholesterolemia: Comment: decline cholesterol med (03/2022) Code(s): E78.00 - Pure hypercholesterolemia, unspecified Plan: Avoid fried foods, chicken skin, eggs, butter margarine, pastries and meat. Be it pork or beef they have a lot of cholesterol LDL goal of less than 70 and triglyceride of less than 150. Patient on diet control (5) CKD (chronic kidney disease) stage 4, GFR 15-29 ml/min: Code(s): N18.4 - Chronic kidney disease, stage 4 (severe) Plan: Continue to monitor has been stable (6) Hypertension: Code(s): I10 - Essential (primary) hypertension Qualifiers: Hypertension type: essential hypertension Qualified Code(s): I10 - Essential (primary) hypertension Plan: Continue with blood pressure medication. Decrease salt intake and exercise patient on hydrochlorothiazide 25 mg once a day and atenolol 25 mg once a day (7) DDD (degenerative disc disease), lumbar: Code(s): M51.36 - Other intervertebral disc degeneration, lumbar region Plan: Narcotic pain meds: Is being prescribed with the understanding that these medications are potentially addictive and should be used only when absolutely necessary and must always be secured. Any remaining pills should be safely disposed off appropriately. Patient is advised that narcotics can impaired judgment and one should not drive or operate heavy machinery while taking these medications. Never share these medications with anybody and do not leave them unattended. They will not be replaced under any circumstances. Coding Level of Care Code Est Pt Level 4 (99072) Diagnoses Paroxysmal atrial fibrillation I48.0 Coronary artery disease involving [place] coronary artery of [place] heart without angina pectoris I25.10 Coronary Disease-Associated Artery/Lesion type: [place] artery [place] vs. 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
== END 2023-05-25 11:38 | disposition home or self-care (01) ==
PROVIDERS: PCP Internal Medicine; Visit Provider Internal Medicine
DX: I12.9 Hypertensive chronic kidney disease with stage 1 through stage 4 chronic kidney disease, or unspecified chronic kidney disease (principal); I48.0 Paroxysmal atrial fibrillation; E11.65 Type 2 diabetes mellitus with hyperglycemia; N18.4 Chronic kidney disease, stage 4 (severe); I25.10 Atherosclerotic heart disease of native coronary artery without angina pectoris; E78.00 Pure hypercholesterolemia, unspecified; M51.36 Other intervertebral disc degeneration, lumbar region
CPT/HCPCS: 99214

== ENCOUNTER 2023-08-17 12:56 | Outpatient (AMB) | payer MEDICARE, SELFPAY ==
--- NOTE | 2023-08-17 13:18 | MHC.OFFVIS ---
Intake Vital Signs 08/17/23 13:23 Height 6 ft 1 in Weight 210 lb BMI 27.7 BP 124/60 Blood Pressure Location Lt brachial Position Sitting Pulse 60 Pulse Source Monitor Intake Visit Reasons: 6M follow up/Medtr[employer] Intake Note: 6 month follow up with Medtr[employer] & EKG Allergies valsartan [From DIOVAN] Allergy (Mild, Verified 05/25/23 11:03) ITCHING losartan Allergy (Unknown, Verified 05/25/23 11:03) itch lisinopril [LISINOPRIL] Adverse Reaction (Intermediate, Verified 05/25/23 11:03) LEG CRAMPS., leg cramps Medication List - Last Reconciled 08/17/23 by Dionisio Cardenas MD atenolol 25 mg PO DAILY blood sugar diagnostic 1 strip miscellaneous QID 30 days hydrochlorothiazide 25 mg PO DAILY PRN 90 days insulin aspart (niacinamide) 100 unit/mL (3 mL) (Fiasp FlexTouch U-100 Insulin) 6 units with breakfast, 7 units with lunch and 8 units with dinner. subcut 3 times a day; 90 days insulin degludec (Tresiba FlexTouch U-100 insulin) 8 units (0.08 mL) subcut BEDTIME 90 days latanoprost 0.005% 1 drp ophthalmic (eye) DAILY lidocaine 4% (Aspercreme (lidocaine)) 1 patch topical DAILY PRN oxycodone 10 mg PO QID PRN pen needle, diabetic (BD Cherry 2nd Gen Pen Needle) 4 times a day [Pro REnal +D As directed] [RENADRYL As directed] HPI HPI Comments History of Present Illness Details Bandar comes for follow-up. 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 However he still remains active around the house but most limiting due to his back issues. Having significant pain related to it which limits his activity level. He denies any cardiac symptoms. Denies any prolonged palpitation irregular heartbeat. Denies any lightheadedness, syncope. Denies any shortness of breath, orthopnea PND, leg edema. Denies any chest pain. Comes for pacemaker evaluation. 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 Dyslipidemia CKD (chronic kidney disease) stage 4, GFR 15-29 ml/min Surgical History History of permanent cardiac pacemaker placement Hx of inguinal hernia surgery Family History Father Pancreatic cancer Mother Diabetes Alzheimers disease Social History Household Members: None Housing: House Alcohol intake: never Patient Tobacco Use Status: Never used Tobacco e-Cigarette/Vaping Use: Never Used Second Hand Smoke Exposure: No service: No Current occupational status: retired Current occupational exposures/hazards: No Cognitive needs: Yes (walker ) Hearing needs: Yes Vision needs: Yes Review of Systems Const Denies chills, Denies fatigue, Denies fever(s), Denies frequent falls, Denies weakness, Denies weight gain and Denies weight loss ENT Denies dizziness Card Denies chest pain, Denies leg edema, Denies lightheadedness, Denies palpitations, Denies dyspnea, Denies dyspnea on exertion, Denies orthopnea and Denies other (loss of consciousness) Resp Denies cough, Denies dyspnea and Denies dyspnea on exertion GI Denies hematochezia and Denies change in stool character Musc Denies abnormal gait, Denies muscle weakness, Denies numbness, Denies radiating pain into limb and Denies tingling Neuro Denies abnormal gait, Denies dizziness, Denies frequent falls, Denies numbness, Denies tingling and Denies weakness Endo Denies fatigue and Denies palpitations Physical Exam Vital Signs: Last Vital Signs Pulse 60 08/17/23 13:23 BP 124/60 08/17/23 13:23 BMI result Body Mass Index 27.7 Office Procedures Cardiac Device Check Cardiac Device Check Details: Dual-chamber Medtronic pacemaker in place programmed in DDD with rate drop response. Ventricular pacing 100% of time. Atrial ventricular sensing is adequate. Pacing lead impedance is stable. Atrial ventricular pacing thresholds are adequate. Battery life is at about 2 years. No arrhythmias detected [id number] Cardiac Device Check, pacemaker dual lead Procedure code (CPT) selection complete EKG Details: EKG shows atrially sensed, ventricularly paced rhythm at 60 beats per minute [id number], Complete Assessment & Plan Assessment & Plan (1) Cardiomyopathy: Code(s): I42.9 - Cardiomyopathy, unspecified Qualifiers: Cardiomyopathy type: unspecified Qualified Code(s): I42.9 - Cardiomyopathy, unspecified Plan: Cardiomyopathic process suspected to be due to RV pacing. No signs or symptoms of heart failure. Currently on atenolol therapy for neurohormonal modulation. Follow-up echocardiogram in near future. Not on angiotensin receptor venkat due to chronic kidney disease. Blood pressures also been on the lower side. Continue aggressive risk factor modification. Signs and symptoms of heart failure were discussed. (2) Cardiac pacemaker in situ: Code(s): Z95.0 - Presence of cardiac pacemaker Plan: Cardiac pacemaker in-situ, working well. Reprogrammed for adequate function. Will follow remotely every 3 months. Follow up in the clinic in 6 months time. Patient ventricularly pacer dependent. (3) Paroxysmal atrial fibrillation: Comment: 05/2020 cardiology notes on anticoagulation- decline by patient Code(s): I48.0 - Paroxysmal atrial fibrillation Plan: Paroxysmal atrial fibrillation in the past. Patient has no recurrent atrial fibrillation noted on pacer telemetry. In the past has been discussed about oral anticoagulation but he had denied. Continues to deny the same. Risk of stroke was discussed. Avoidance of stimulants was discussed. Will follow up in the clinic in 6 months time, sooner p.r.n.. Thank you for allowing me to partake in his care Coding Level of Care Code Est Pt Level 4 (23451) Diagnoses Cardiomyopathy, unspecified type I42.9 Cardiomyopathy type: unspecified Cardiac pacemaker in situ Z95.0 Paroxysmal atrial fibrillation I48.0 CPT Codes Cardiac Device Check - Cardiac Device 2: [id number] Cardiac Device Check, pacemaker dual lead ([id number]) EKG - CPT: 46636-[id number], Complete ([id number])
[2023-08-17 13:23] VITALS: BP 124/60; PULSE 60; BMI 27.7
== END 2023-08-17 13:46 | disposition home or self-care (01) ==
PROVIDERS: PCP Internal Medicine; Visit Provider Internal Medicine Cardiovascular Disease
DX: I42.9 Cardiomyopathy, unspecified (principal); I48.0 Paroxysmal atrial fibrillation; Z95.0 Presence of cardiac pacemaker
CPT/HCPCS: 93280; 99214

== ENCOUNTER → 2023-08-17 12:56 | Outpatient (BNVA) | payer MEDICARE, SELFPAY | PROVIDERS: PCP Internal Medicine; Visit Provider Internal Medicine Cardiovascular Disease | DX: Z45.018 Encounter for adjustment and management of other part of cardiac pacemaker (principal); I42.9 Cardiomyopathy, unspecified; I48.0 Paroxysmal atrial fibrillation | CPT/HCPCS: 93005; 93280; 99212 ==

== ENCOUNTER 2023-08-28 10:36 | Outpatient (AMB) | payer MEDICARE, SELFPAY ==
--- NOTE | 2023-08-28 10:40 | A.OFFPC_ITS ---
Vital Signs 08/28/23 10:42 Height 6 ft 1 in Weight 222 lb 6 oz BMI 29.3 BP 140/70 H Blood Pressure Location Lt brachial Position Sitting Pulse 78 Pulse Source Pulse Oximeter Pulse Oximetry (%) 96 Oxygen Delivery Method Room Air Intake Visit Reasons: DM, CAD Intake Note: Patient is here to follow up on DM, CAD. 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: Not Required per policy Accompanied by: Self / Same As Patient Allergies valsartan [From DIOVAN] Allergy (Mild, Verified 08/28/23 10:41) ITCHING losartan Allergy (Unknown, Verified 08/28/23 10:41) itch lisinopril [LISINOPRIL] Adverse Reaction (Intermediate, Verified 08/28/23 10:41) LEG CRAMPS., leg cramps Tobacco use date assessed: 08/28/23 Fall risk assessment: No Falls in past year Last assessed Fall Risk: 08/28/23 Dental Screening Dental Screen Date: 08/28/23 Did you have a dental visit in the last 12 months?: Yes Did you have a dental problem in the last 6 months where you did not have access to dental care?: No Was dental information given to patient?: Patient has dentist HPI DM, CAD HPI Details 82-year-old male with diabetes mellitus coronary artery disease atrial fibrillation hypercholesterolemia chronic kidney disease hypertension lumbar degenerative disc disease on narcotic pain medication coming in for follow-up. Last seen May 2023. Review of the notes follows up with Cardiology seen 08/17/2023 denies any cardiac symptoms cardiac pacemaker being monitored regularly paroxysmal atrial fibrillation controlled with no recurrent atrial fibrillation on pacer telemetry. Has denied anticoagulation. 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 2 diabetes mellitus 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 Dyslipidemia CKD (chronic kidney disease) stage 4, GFR 15-29 ml/min Surgical History History of permanent cardiac pacemaker placement Hx of inguinal hernia surgery Family History Father Pancreatic cancer Mother Diabetes Alzheimers disease Social History Household Members: None Housing: House Alcohol intake: never Patient Tobacco Use Status: Never used Tobacco e-Cigarette/Vaping Use: Never Used Second Hand Smoke Exposure: No service: No Current occupational status: retired Current occupational exposures/hazards: No Cognitive needs: Yes (walker ) Hearing needs: Yes Vision needs: Yes Questionnaire PHQ-9 Over the last 2 weeks, how often have you been bothered by any of the following problems? 1. Little interest or pleasure in doing things: not at all 2. Feeling down, depressed, or hopeless: not at all 3. Trouble falling or staying asleep, or sleeping too much: not at all 4. Feeling tired or having little energy: not at all 5. Poor appetite or overeating: not at all 6. Feeling bad about yourself - or that you are a failure or have let yourself or your family down: not at all 7. Trouble concentrating on things, such as reading the newspaper or watching television: not at all 8. Moving or speaking so slowly that other people could have noticed. Or the opposite - being so fidgety or restless that you have been moving around a lot more than usual: not at all 9. Thoughts that you would be better off or of hurting yourself in some way: not at all Total score: 0 Depression Screening Interpretation: Negative Depression Screening Done: Yes Source: Developed by Drs. Avery Sherman, Ebony Callahan, Shashi Goff and colleagues, with an educational ngoc from [employer]. Thrive Questionnaire Date Thrive assessed: 08/28/23 I am a: Patient What is your living situation today?: I have a steady place to live Within the past 12 months, did the food you bought not last and you didn't have the money to get more?: Never true Within the past 12 months, did you worry whether your food would run out before you got money to buy more?: Never true Do you have trouble paying for medicines?: No Do you have trouble getting transportation to medical appointments?: No Do you have trouble paying your heating and electricity bill?: No Do you have trouble taking care of your child, family member or friend?: No Do you have trouble with day-to-day activities such as bathing, preparing meals, shopping, managing finances, etc.?: No Are you currently unemployed and looking for a job?: No Are you interested in more education?: No Currently or been in a relationship where the following occur: no concerns reported THRIVE Score: 0 AUDIT C Alcohol Use Questionnaire (AUDIT-C) 1. How often do you have a drink containing alcohol?: Never Total Score: 0 CRISTIAN-7 AMB Questionnaire CRISTIAN-7 Date CRISTIAN - 7 assessed: 08/28/23 Feeling nervous, anxious, or on edge: 0 = Not at all Not being able to stop or control worryin = Not at all Worrying too much about different things: 0 = Not at all Trouble relaxin = Not at all Being so restless that it is hard to sit still: 0 = Not at all Becoming easily annoyed or irritable: 0 = Not at all Feeling afraid as if something awful might happen: 0 = Not at all Total CRISTIAN-7 score (0-4 normal; 5-9 mild; 10-14 moderate; 15-21 severe): 0 Source: Developed by Drs. Avery Sherman, Ebony Callahan, Shashi Goff and colleagues, with an educational ngoc from [employer]. Physical exam (Primary Care) BMI result Body Mass Index 29.3 Tobacco/Smoking Status: Tobacco use Status Tobacco use date assessed 08/28/23 08/28/23 10:47 Patient Tobacco Use Status Never used Tobacco 08/28/23 10:47 e-Cigarette/Vaping Use Never Used 08/28/23 10:47 PHQ-9: PHQ-9 Score PHQ-9: Total score 0 08/28/23 10:47 Depression Screening Interpretation: Negative Thrive Assessment: Date of Thrive Assessment Date Thrive assessed 08/28/23 08/28/23 10:47 Currently or been in a relationship where the following occur: no concerns reported Const General: alert; No acute distress Eyes Conjunctivae: conjunctivae normal Resp Auscultation: clear to auscultation bilaterally Cardio Rate: regular rate Rhythm: regular rhythm GI Inspection: Yes normal to inspection Extrem General: Yes normal to inspection and No edema Results AMB Hemoglobin A1c AMB Hemoglobin A1c 5.3 % Last Edit by MILAGRO William on 08/28/23 10:54 Assessment and Plan Assessment & Plan (1) Type 2 diabetes mellitus with hyperglycemia: Comment: REferred to Jose Luis Turcios- awaiting schedule Code(s): E11.65 - Type 2 diabetes mellitus with hyperglycemia Qualifiers: Diabetes mellitus director long term care insulin use: without intermediate use Qualified Code(s): E11.65 - Type 2 diabetes mellitus with hyperglycemia Plan: Decrease the amount of carbohydrate intake, pasta, bread, rice and potatoes are all sugar and that is aside from all the sweet stuff, remember that fruits are good but they are Sweet also. Hemoglobin A1c goal of less than 7.0. Patient on VSP and Tresiba A1c is controlled (2) Paroxysmal atrial fibrillation: Comment: 05/2020 cardiology notes on anticoagulation- decline by patient Code(s): I48.0 - Paroxysmal atrial fibrillation Plan: Stable cardiology follow-up being done declined anticoagulation (3) Hypertension: Code(s): I10 - Essential (primary) hypertension Qualifiers: Hypertension type: essential hypertension Qualified Code(s): I10 - Essential (primary) hypertension Plan: Continue with blood pressure medication. Decrease salt intake and exercise on atenolol 25 mg once a day and hydrochlorothiazide 25 mg once a day (4) DDD (degenerative disc disease), lumbar: Code(s): M51.36 - Other intervertebral disc degeneration, lumbar region Plan: Narcotic pain meds: Is being prescribed with the understanding that these medications are potentially addictive and should be used only when absolutely necessary and must always be secured. Any remaining pills should be safely disposed off appropriately. Patient is advised that narcotics can impaired judgment and one should not drive or operate heavy machinery while taking these medications. Never share these medications with anybody and do not leave them unattended. They will not be replaced under any circumstances. (5) CAD (coronary artery disease): Code(s): I25.10 - Atherosclerotic heart disease of [place] coronary artery without angina pectoris Qualifiers: Coronary Disease-Associated Artery/Lesion type: [place] artery [place] vs. transplanted heart: [place] heart Associated angina: without angina Qualified Code(s): I25.10 - Atherosclerotic heart disease of [place] coronary artery without angina pectoris Plan: Control the cholesterol, weight, blood pressure, diabetes declined anticoagulation (6) Chronic kidney disease (CKD) stage G4/A2, severely decreased glomerular filtration rate (GFR) between 15-29 mL/min/1.73 square meter and albuminuria creatinine ratio between 30-299 mg/g: Code(s): N18.4 - Chronic kidney disease, stage 4 (severe) Plan: Keep well hydrated, avoid NSAIDs (7) Hypercholesterolemia: Comment: decline cholesterol med (03/2022) Code(s): E78.00 - Pure hypercholesterolemia, unspecified Plan: Avoid fried foods, chicken skin, eggs, butter margarine, pastries and meat. Be it pork or beef they have a lot of cholesterol declined cholesterol med. Orders: Orders AMB Hemoglobin A1c Today E11.65 - Type 2 diabetes mellitus with hyperglycemia Comprehensive Met. Panel 3 Months E11.65 - Type 2 diabetes mellitus with hyperglycemia Free T4 (Free Thyroxine) 3 Months E11.65 - Type 2 diabetes mellitus with hyperglycemia IRON PROFILE 3 Months E11.65 - Type 2 diabetes mellitus with hyperglycemia Lipid Panel 3 Months E11.65 - Type 2 diabetes mellitus with hyperglycemia, E78.00 - Pure hypercholesterolemia, unspecified Complete Blood Count Auto Diff 3 Months E11.65 - Type 2 diabetes mellitus with hyperglycemia Thyroid Stimulating Hormone 3 Months E11.65 - Type 2 diabetes mellitus with hyperglycemia Reticulocyte Count 3 Months E11.65 - Type 2 diabetes mellitus with hyperglycemia Vitamin B12 and Folate 3 Months E11.65 - Type 2 diabetes mellitus with hypergl ycemia Hemoglobin A1c 3 Months E11.65 - Type 2 diabetes mellitus with hyperglycemia Uric Acid 3 Months E11.65 - Type 2 diabetes mellitus with hyperglycemia Coding Level of Care Code Est Pt Level 4 (49310) Diagnoses Type 2 diabetes mellitus with hyperglycemia, without long-term current 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 E11.65 Diabetes mellitus intermediate insulin use: without director long term care use Paroxysmal atrial fibrillation I48.0 Essential hypertension I10 Hypertension type: essential hypertension DDD (degenerative disc disease), lumbar M51.36 Coronary artery disease involving [place] coronary artery of [place] heart without angina pectoris I25.10 Coronary Disease-Associated Artery/Lesion type: [place] artery [place] vs. transplanted heart: [place] heart Associated angina: without angina Chronic kidney disease (CKD) stage G4/A2, severely decreased glomerular filtration rate (GFR) between 15-29 mL/min/1.73 square meter and albuminuria creatinine ratio between 30-299 mg/g N18.4 Hypercholesterolemia E78.00
[2023-08-28 10:42] VITALS: BP 140/70; PULSE 78; O2SAT 96; BMI 29.3
== END 2023-08-28 11:22 | disposition home or self-care (01) ==
PROVIDERS: PCP Internal Medicine; Visit Provider Internal Medicine
DX: E11.65 Type 2 diabetes mellitus with hyperglycemia (principal); I48.0 Paroxysmal atrial fibrillation; I12.9 Hypertensive chronic kidney disease with stage 1 through stage 4 chronic kidney disease, or unspecified chronic kidney disease; N18.4 Chronic kidney disease, stage 4 (severe); M51.36 Other intervertebral disc degeneration, lumbar region; I25.10 Atherosclerotic heart disease of native coronary artery without angina pectoris; E78.00 Pure hypercholesterolemia, unspecified
CPT/HCPCS: 83036; 99214

== ENCOUNTER 2023-10-15 11:37 | Outpatient (AMB) | payer MEDICARE, SELFPAY ==
[2023-10-15 11:39] VITALS: BP 154/80; PULSE 63; O2SAT 99; BMI 29.6
--- NOTE | 2023-10-15 11:39 | HO.NEPHOV_ITS ---
Vital Signs 10/15/23 11:39 Height 6 ft 1 in Weight 224 lb BMI 29.6 BP 154/80 H Blood Pressure Location Rt brachial Position Sitting Pulse 63 Pulse Source Pulse Oximeter Pulse Oximetry (%) 99 Oxygen Delivery Method Room Air Intake Visit Reasons: CKD/ Confirmed Ct Technologist Required: No Accompanied by: Self / Same As Patient Allergies valsartan [From DIOVAN] Allergy (Mild, Verified 10/15/23 11:42) ITCHING losartan Allergy (Unknown, Verified 10/15/23 11:42) itch lisinopril [LISINOPRIL] Adverse Reaction (Intermediate, Verified 10/15/23 11:42) LEG CRAMPS., leg cramps HPI Comments Details: 82-year-old male with diabetes mellitus coronary artery disease atrial fibrillat ion hypercholesterolemia chronic kidney disease hypertension lumbar degenerative disc disease on narcotic pain medication Referred for CKD He was previously seen by Dr. Franklin but he has decided to switch his provider Baseline serum creatinine is around 2.2 mg/dL All the labs for the last 3 years was reviewed and serum creatinine has been between 2.0 and 2.4 mg/dL. No significant proteinuria based on the recent urine protein creatinine ratio Urine sediments were benign History of hypertension. BP has been high in the office but home blood pressure readings are excellent Blood sugar has been well controlled with a recent A1c of 5.3% Two years ago ultrasound showed normal-appearing kidneys without hydronephrosis and there was slightly elevated postvoid residual. He denies any urinary complaints like urgency increased frequency or hesitancy. No significant edema. No shortness of breath no chest. No nausea or vomiting. He is complaining of fatigue. He is retired. He lives alone. No history of any significant smoking alcohol abuse [facility] Medical History Frequent UTI Cardiomyopathy Cardiac pacemaker in situ Complete heart block DDD (degenerative disc disease), lumbar CAD (coronary artery disease) BPH (benign prostatic hyperplasia) Chronic kidney disease (CKD) stage G4/A2, severely decreased glomerular filtration rate (GFR) between 15-29 mL/min/1.73 square meter and albuminuria creatinine ratio between 30-299 mg/g Hypercholesterolemia Paroxysmal atrial fibrillation Hypertension 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 2 diabetes 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 Dyslipidemia CKD (chronic kidney disease) stage 4, GFR 15-29 ml/min Surgical History History of permanent cardiac pacemaker placement Hx of inguinal hernia surgery Family History Father Pancreatic cancer Mother Diabetes Alzheimers disease Social History Household Members: None Housing: House Alcohol intake: never Patient Tobacco Use Status: Never used Tobacco e-Cigarette/Vaping Use: Never Used Second Hand Smoke Exposure: No service: No Current occupational status: retired Current occupational exposures/hazards: No Cognitive needs: Yes (walker ) Hearing needs: Yes Vision needs: Yes Physical Exam Vital Signs: Last Vital Signs Pulse 63 10/15/23 11:39 BP 154/80 H 10/15/23 11:39 Pulse Ox 99 10/15/23 11:39 Oxygen Delivery Method Room Air 10/15/23 11:39 BMI result Body Mass Index 29.6 Const General: comfortable Nutritional Appearance: well nourished Orientation/consciousness: patient oriented x3 HEENT Head: No normal to inspection Mouth: moist mucous membranes Neck Neck: Yes supple and Yes no JVD Resp Auscultation: clear to auscultation bilaterally, no rales and rub present Cardio Jugular venous distension: no JVD Palpation: no palpable S3 and no palpable S4 Heart sounds: no rubs GI Palpation (GI): Soft to palpation and nontender Percussion: No Fluid wave present General: Yes no CVA tenderness Back/Spine/Pelvis Back: no CVA tenderness Skin General skin exam: no rashes or lesions noted Neuro General: patient oriented x3 Extrem General: Yes no pedal edema and No clubbing Results Reviewed Nephrology Results: Hgb 12.2 g/dl (14.0-18.0) L 05/11/23 WBC 5.6 X10*3/uL (4.8-10.8) 05/11/23 Plt Count 128 X10*3/uL (160-400) L 05/11/23 Sodium 143 mmol/L (135-145) 05/11/23 Potassium 4.1 mmol/L (3.3-5.1) 05/11/23 Chloride 109 mmol/L (96-108) H 05/11/23 Carbon Dioxide 27 mmol/L (22-29) 05/11/23 BUN 30 mg/dL (9-16) H 05/11/23 Creatinine 2.09 mg/dL (0.5-1.4) H 05/11/23 Calcium 9.8 mg/dL (8.4-10.2) 05/11/23 Assessment & Plan Assessment & Plan (1) CKD (chronic kidney disease): Code(s): N18.9 - Chronic kidney disease, unspecified Category: Medical Plan 82-year-old man with a history of longstanding hypertension diabetes mellitus with stable chronic kidney disease. 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 He has no significant proteinuria. Over the last 3 years renal function has been relatively stable. Given the history of increased postvoid residual in the past underlying obstructive uropathy should still be considered. Hypertension Blood pressure is well controlled at this time based on home readings. Office readings elevated and I suspect he has a component of white coat effect. Diabetes mellitus Blood sugar seems well controlled with the A1c of 8.3%. Mild anemia As of March 2023 the hemoglobin was 12.2. Plan Repeat renal panel today. Check urine for protein creatinine ratio. Check hemoglobin and iron studies Check calcium phosphorus intact PTH. Based on the renal function I will consider renal ultrasonogram. Continue monitoring blood pressure at home. Stay on low-sodium diet Increase fluid intake. Continue overt nephrotoxic agents including NSAIDs. Further workup will be based on the outcome of the baseline investigations. Orders: Orders Complete Blood Count Auto Diff Today N18.30 - Chronic kidney disease, stage 3 unspecified, N18.9 - Chronic kidney disease, unspecified IRON PROFILE Today N18.5 - Chronic kidney disease, stage 5, N18.9 - Chronic kidney disease, unspecified Total Protein Urine Random Today N18.9 - Chronic kidney disease, unspecified Parathyroid Hormone Intact Today N18.9 - Chronic kidney disease, unspecified Creatinine Urine Today N05.9 - Unspecified nephritic syndrome with unspecified morphologic changes, N18.9 - Chronic kidney disease, unspecified Comprehensive Met. Panel Today N18.9 - Chronic kidney disease, unspecified UA and rflx microscopic Today N18.9 - Chronic kidney disease, unspecified Vitamin D 25-OH (D2 and D3) Today N18.9 - Chronic kidney disease, unspecified Coding Level of Care Code New Pt Level 5 (43564) Diagnoses CKD (chronic kidney disease) N18.9
== END 2023-10-15 12:08 | disposition home or self-care (01) ==
PROVIDERS: PCP Internal Medicine; Referring Provider Internal Medicine; Visit Provider Internal Medicine Hypertension Specialist
DX: I12.9 Hypertensive chronic kidney disease with stage 1 through stage 4 chronic kidney disease, or unspecified chronic kidney disease (principal); E11.22 Type 2 diabetes mellitus with diabetic chronic kidney disease; N18.9 Chronic kidney disease, unspecified
CPT/HCPCS: 99204

== ENCOUNTER 2023-10-15 14:06 | Outpatient (REF) | payer MEDICARE, SELFPAY ==
[2023-10-15 16:15] LABS: MANUAL DIFF FLAG NO
[2023-10-15 16:23] LABS: Basophils Percent Auto 0.3 % (0-2); Eosinophils Percent Auto 0.4 % (0-4); Hematocrit 37.8 % (42.0-52.0); Hemoglobin 12.3 g/dl (14.0-18.0); Imm Gran Abs Auto 0.02 X10*3/uL (0.00-0.03); Imm Gran Pct Auto 0.3 % (0.0-0.4); Lymphocytes Absolute Auto 1.2 X10*3/uL (1.2-4.9); Lymphocytes Percent Auto 16.8 % (20-40); Mean Corpuscular HGB Conc 32.5 g/dl (31.0-36.0); Mean Corpuscular Hemoglobin 30.6 pg (27.0-33.0); Mean Platelet Volume 12.8 fL (9.4-12.4); Monocytes Absolute Auto 0.3 X10*3/uL (0.1-1.2); Monocytes Percent Auto 4.8 % (2-11); Neutrophils Absolute Auto 5.3 x10*3/uL (2.0-8.3); Neutrophils Percent Auto 77.4 % (45-73); Platelet Count 137 X10*3/uL (160-400); Red Blood Count 4.02 X10*6/uL (4.60-5.80); Red Cell Distribution Width 13.7 % (11.0-16.0); White Blood Count 6.9 X10*3/uL (4.8-10.8)
[2023-10-15 16:32] LABS: Appearance Urine Clear; Color Urine Yellow; Glucose Urine UA Negative (Negative); Leukocyte Esterase Urine Negative (Negative); Nitrite Urine Negative (Negative); PH 6.5 (5.0-9.0); Specific Gravity - Urine 1.015 (1.005-1.025); Urine Blood Negative (Negative); Urine Ketones Negative (Negative); Urine Protein Trace mg/dL (Neg-Trace)
[2023-10-15 16:43] LABS: Alanine Aminotransferase 17 U/L (0-40); Albumin Level 4.2 g/dL (3.5-5.0); Alkaline Phosphatase 56 U/L (39-117); Anion Gap 17 (12-20); Aspartate Amino Transferase 22 U/L (5-37); Bilirubin Total 0.7 mg/dL (0.0-1.0); Blood Urea Nitrogen 52 mg/dL (9-16); Carbon Dioxide 28 mmol/L (22-29); Chloride 101 mmol/L (96-108); Estimated Glomerular Filt Rate 25; Glucose Random 226 mg/dL (60-115); Iron 47 mcg/dL (45-160); Percent Iron Saturation 22 % (15-50); Potassium 4.1 mmol/L (3.3-5.1); Sodium 142 mmol/L (135-145); Total Iron Binding Capacity 212 mcg/dL (228-428); Unsaturated Iron Binding 165 ug/dL
[2023-10-15 18:34] LABS: Creatinine Urine 89.01 mg/dL; Total Protein Urine Random 12 mg/dL (<12)
[2023-10-16 05:20] LABS: Parathyroid Hormone Intact 126.5 pg/mL (8.7-77.1)
[2023-10-19 16:14] LABS: Vitamin D 25-OH, D2 <4 ng/mL; Vitamin D 25-OH, D3 113 ng/mL; Vitamin D 25-OH, Total 113 ng/mL (30-100)
== END 2023-10-15 14:07 | disposition home or self-care (01) ==
LOC: HO.HMGCLDS 14:06
PROVIDERS: PCP Internal Medicine; Visit Provider Internal Medicine Hypertension Specialist
DX: E11.22 Type 2 diabetes mellitus with diabetic chronic kidney disease (principal); I12.9 Hypertensive chronic kidney disease with stage 1 through stage 4 chronic kidney disease, or unspecified chronic kidney disease; N18.9 Chronic kidney disease, unspecified; N05.9 Unspecified nephritic syndrome with unspecified morphologic changes
CPT/HCPCS: 36415; 80053; 81003; 82306; 82570; 83540; 83970; 84156; 85025; 99202

== ENCOUNTER 2023-11-05 10:24 | Outpatient (AMB) | payer MEDICARE, SELFPAY ==
--- NOTE | 2023-11-05 10:25 | HO.NEPHOV_ITS ---
Vital Signs 11/05/23 10:26 Height 6 ft 1 in Weight 228 lb BMI 30.1 BP 126/76 Blood Pressure Location Lt brachial Position Sitting Pulse 75 Pulse Source Pulse Oximeter Pulse Oximetry (%) 98 Oxygen Delivery Method Room Air Intake Visit Reasons: CKD/ 2 weeks fu/ Confirmed Mixing Supervisor Required: No Accompanied by: Self / Same As Patient Allergies valsartan [From DIOVAN] Allergy (Mild, Verified 11/05/23 10:28) ITCHING losartan Allergy (Unknown, Verified 11/05/23 10:28) itch lisinopril [LISINOPRIL] Adverse Reaction (Intermediate, Verified 11/05/23 10:28) LEG CRAMPS., leg cramps HPI Comments Details: 82-year-old male with diabetes mellitus coronary artery disease atrial fibrillation hypercholesterolemia chronic kidney disease hypertension lumbar degenerative disc disease on narcotic pain medication Referred for CKD He was previously seen by Dr. Franklin but he has decided to switch his provider Baseline serum creatinine is around 2.2 mg/dL All the labs for the last 3 years was reviewed and serum creatinine has been between 2.0 and 2.4 mg/dL. No significant proteinuria based on the recent urine protein creatinine ratio Urine sediments were benign History of hypertension. BP has been high in the office but home blood pressure readings are excellent Blood sugar has been well controlled with a recent A1c of 5.3% Two years ago ultrasound showed normal-appearing kidneys without hydronephrosis and there was slightly elevated postvoid residual. He denies any urinary complaints like urgency increased frequency or hesitancy. No significant edema. No shortness of breath no chest. No nausea or vomiting. He is complaining of fatigue. He is retired. He lives alone. No history of any significant smoking alcohol abuse [facility] Medical History Frequent UTI Cardiomyopathy Cardiac pacemaker in situ Complete heart block DDD (degenerative disc disease), lumbar CAD (coronary artery disease) BPH (benign prostatic hyperplasia) Chronic kidney disease (CKD) stage G4/A2, severely decreased glomerular filtration rate (GFR) between 15-29 mL/min/1.73 square meter and albuminuria creatinine ratio between 30-299 mg/g Hypercholesterolemia Paroxysmal atrial fibrillation Hypertension 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 2 diabetes mellitus 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 Dyslipidemia CKD (chronic kidney disease) stage 4, GFR 15-29 ml/min Surgical History History of permanent cardiac pacemaker placement Hx of inguinal hernia surgery Family History Father Pancreatic cancer Mother Diabetes Alzheimers disease Social History Household Members: None Housing: House Alcohol intake: never Patient Tobacco Use Status: Never used Tobacco e-Cigarette/Vaping Use: Never Used Second Hand Smoke Exposure: No service: No Current occupational status: retired Current occupational exposures/hazards: No Cognitive needs: Yes (walker ) Hearing needs: Yes Vision needs: Yes Physical Exam Vital Signs: Last Vital Signs Pulse 75 11/05/23 10:26 BP 126/76 11/05/23 10:26 Pulse Ox 98 11/05/23 10:26 Oxygen Delivery Method Room Air 11/05/23 10:26 BMI result Body Mass Index 30.1 Const General: comfortable Nutritional Appearance: well nourished Orientation/consciousness: patient oriented x3 HEENT Head: No normal to inspection Mouth: moist mucous membranes Neck Neck: Yes supple and Yes no JVD Resp Auscultation: clear to auscultation bilaterally, no rales and rub present Cardio Jugular venous distension: no JVD Palpation: no palpable S3 and no palpable S4 Heart sounds: no rubs GI Palpation (GI): Soft to palpation and nontender Percussion: No Fluid wave present General: Yes no CVA tenderness Back/Spine/Pelvis Back: no CVA tenderness Skin General skin exam: no rashes or lesions noted Neuro General: patient oriented x3 Extrem General: Yes no pedal edema and No clubbing Results Reviewed Nephrology Results: Hgb 12.3 g/dl (14.0-18.0) L 10/15/23 WBC 6.9 X10*3/uL (4.8-10.8) 10/15/23 Plt Count 137 X10*3/uL (160-400) L 10/15/23 Sodium 142 mmol/L (135-145) 10/15/23 Potassium 4.1 mmol/L (3.3-5.1) 10/15/23 Chloride 101 mmol/L (96-108) 10/15/23 Carbon Dioxide 28 mmol/L (22-29) 10/15/23 BUN 52 mg/dL (9-16) H 10/15/23 Creatinine 2.48 mg/dL (0.5-1.4) H 10/15/23 Calcium 10.0 mg/dL (8.4-10.2) 10/15/23 PTH Intact 126.5 pg/mL (8.7-77.1) H 10/15/23 Urine Protein Trace mg/dL (Neg-Trace) 10/15/23 Urine Creatinine 89.01 mg/dL 10/15/23 Assessment & Plan Assessment & Plan (1) CKD (chronic kidney disease): Code(s): N18.9 - Chronic kidney disease, unspecified Category: Medical Plan 82-year-old man with a history of longstanding hypertension diabetes mellitus with stable chronic kidney disease. 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 He has no significant proteinuria. Over the last 3 years renal function has been relatively stable. Recent Creatinine 2.48 with eGFR of 25 ml/mt Given the history of increased postvoid residual in the past underlying obstructive uropathy should still be considered. Hypertension Blood pressure is well controlled at this time based on home readings. Office readings elevated and I suspect he has a component of white coat effect. Diabetes mellitus Blood sugar seems well controlled with the A1c of 8.3%. Mild anemia As of March 2023 the hemoglobin was 12.2. Plan Check renal ultrasonogram. Follow renal panel Mild secondary Hyperparathyroidism- intact PTH mildly elevated Continue monitoring blood pressure at home. Stay on low-sodium diet Increase fluid intake. Continue overt nephrotoxic agents including NSAIDs. Orders: Orders US renal BI Today N18.9 - Chronic kidney disease, unspecified Complete Blood Count no Diff 2 Months N18.9 - Chronic kidney disease, unspecified Comprehensive Met. Panel 2 Months N18.9 - Chronic kidney disease, unspecified Coding Level of Care Code Est Pt Level 4 (69714) Diagnoses CKD (chronic kidney disease) N18.9
[2023-11-05 10:26] VITALS: BP 126/76; PULSE 75; O2SAT 98; BMI 30.1
== END 2023-11-05 10:44 | disposition home or self-care (01) ==
PROVIDERS: PCP Internal Medicine; Visit Provider Internal Medicine Hypertension Specialist
DX: N18.9 Chronic kidney disease, unspecified (principal)
CPT/HCPCS: 99214

== ENCOUNTER → 2023-11-05 10:24 | Outpatient (BNVA) | payer MEDICARE, SELFPAY | PROVIDERS: PCP Internal Medicine; Visit Provider Internal Medicine Hypertension Specialist | DX: E11.22 Type 2 diabetes mellitus with diabetic chronic kidney disease (principal); E11.40 Type 2 diabetes mellitus with diabetic neuropathy, unspecified; N18.4 Chronic kidney disease, stage 4 (severe); Z79.4 Long term (current) 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 | CPT/HCPCS: 99212 ==

== ENCOUNTER 2023-11-06 11:26 | Outpatient (REF) | payer MEDICARE, SELFPAY ==
--- NOTE | ~2023-11-06 | US_ITS ---
EXAMINATION: US RETROPERITONEAL LIMITED (RENAL ONLY) CLINICAL INFORMATION: Chronic kidney disease, unspecified. COMPARISON: Ultrasound kidneys and bladder 12/26/2021. Ultrasound kidneys 01/20/2019. TECHNIQUE: Real-time imaging of the kidneys. FINDINGS: RIGHT KIDNEY: 9.1 x 5.1 x 4.6 cm (SAG x AP x TRV). The kidney is normal in size, contour, and echogenicity. Renal cortical thickness is normal. No renal calculi or hydronephrosis. 1.3 x 0.9 x 1.0 cm exophytic cyst with a partial septum is seen in the lower pole, no imaging follow-up recommended. LEFT KIDNEY: 9.6 x 4.7 x 5.2 cm (SAG x AP x TRV). The kidney is normal in size, contour, and echogenicity. Renal cortical thickness is normal. No renal calculi or hydronephrosis. 0.9 x 0.9 x 0.9 cm simple exophytic cyst is seen in the upper pole, 1.2 x 0.7 x 0.7 cm simple exophytic cyst is seen in the mid kidney, no imaging follow-up recommended. US/US renal BI IMPRESSION: Bilateral renal cysts, no imaging follow-up recommended.
== END 2023-11-06 11:27 | disposition home or self-care (01) ==
LOC: HO.HMGCX 11:26
PROVIDERS: PCP Internal Medicine; Visit Provider Internal Medicine Hypertension Specialist
DX: N18.9 Chronic kidney disease, unspecified (principal)
CPT/HCPCS: 76775

== ENCOUNTER 2023-12-18 10:02 | Outpatient (REF) | payer MEDICARE, SELFPAY ==
[2023-12-18 13:08] LABS: MANUAL DIFF FLAG NO
[2023-12-18 13:18] LABS: Basophils Percent Auto 0.7 % (0-2); Eosinophils Absolute Auto 0.1 X10*3/uL (0.0-0.4); Eosinophils Percent Auto 2.2 % (0-4); Hematocrit 38.6 % (42.0-52.0); Hemoglobin 12.5 g/dl (14.0-18.0); Imm Gran Abs Auto 0.01 X10*3/uL (0.00-0.03); Imm Gran Pct Auto 0.2 % (0.0-0.4); Lymphocytes Absolute Auto 1.7 X10*3/uL (1.2-4.9); Lymphocytes Percent Auto 35.8 % (20-40); Mean Corpuscular HGB Conc 32.4 g/dl (31.0-36.0); Mean Corpuscular Hemoglobin 30.9 pg (27.0-33.0); Mean Corpuscular Volume 95.3 fL (80.0-98.0); Mean Platelet Volume 12.5 fL (9.4-12.4); Monocytes Absolute Auto 0.4 X10*3/uL (0.1-1.2); Monocytes Percent Auto 8.9 % (2-11); Neutrophils Absolute Auto 2.4 x10*3/uL (2.0-8.3); Neutrophils Percent Auto 52.2 % (45-73); Platelet Count 117 X10*3/uL (160-400); Red Blood Count 4.05 X10*6/uL (4.60-5.80); Red Cell Distribution Width 13.9 % (11.0-16.0); White Blood Count 4.6 X10*3/uL (4.8-10.8)
[2023-12-18 13:20] LABS: Immature Retic Fraction 11.6 % (2.3-13.4); Retic HGB Equivalent 33.7 pg (30.0-35.0); Reticulocyte Percent 1.5 % (0.5-1.8); Reticulocytes Absolute 0.062 X10*6/uL (0.026-0.095)
[2023-12-18 13:25] LABS: Estimated Average Glucose 108 mg/dL; Hemoglobin A1c % 5.4 % (<6.0)
[2023-12-18 13:41] LABS: Uric Acid 8.3 mg/dL (3.4-7.0)
[2023-12-18 13:51] LABS: Alanine Aminotransferase 23 U/L (0-40); Albumin Level 4.1 g/dL (3.5-5.0); Alkaline Phosphatase 48 U/L (39-117); Anion Gap 12 (12-20); Aspartate Amino Transferase 26 U/L (5-37); Bilirubin Total 0.9 mg/dL (0.0-1.0); Blood Urea Nitrogen 40 mg/dL (9-16); Calcium 10.2 mg/dL (8.4-10.2); Carbon Dioxide 30 mmol/L (22-29); Chloride 103 mmol/L (96-108); Cholesterol 175 mg/dL (<200); Estimated Glomerular Filt Rate 21; Glucose Random 133 mg/dL (60-115); HDL Cholesterol 49 mg/dL (>40); Iron 72 mcg/dL (45-160); LDL Cholesterol Calculated 112 mg/dL (<100); Percent Iron Saturation 33 % (15-50); Potassium 4.1 mmol/L (3.3-5.1); Sodium 141 mmol/L (135-145); Total Iron Binding Capacity 215 mcg/dL (228-428); Total Protein 6.7 g/dL (6.5-8.0); Triglycerides 73 mg/dL (<150); Unsaturated Iron Binding 143 ug/dL
[2023-12-18 13:55] LABS: Thyroid Stimulating Hormone 2.19 uIU/mL (0.32-4.0)
[2023-12-18 14:18] LABS: Folate 13.9 ng/mL (> or = 4.0); Vitamin B12 > 2000 pg/mL (200-900)
== END 2023-12-18 10:03 | disposition home or self-care (01) ==
LOC: HO.HMGCLDS 10:02
PROVIDERS: PCP Internal Medicine; Visit Provider Internal Medicine Hypertension Specialist
DX: E11.65 Type 2 diabetes mellitus with hyperglycemia (principal); E11.22 Type 2 diabetes mellitus with diabetic chronic kidney disease; N18.9 Chronic kidney disease, unspecified; E78.00 Pure hypercholesterolemia, unspecified
CPT/HCPCS: 36415; 80053; 80061; 82607; 82746; 83036; 83540; 84439; 84443; 84550; 85025; 85027; 85045

== ENCOUNTER 2023-12-21 12:48 | Outpatient (AMB) | payer MEDICARE, SELFPAY ==
--- NOTE | 2023-12-21 13:02 | MHC.PC.OV ---
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 Allergies valsartan [From DIOVAN] Allergy (Mild, Verified 12/21/23 13:03) ITCHING losartan Allergy (Unknown, Verified 12/21/23 13:03) itch lisinopril [LISINOPRIL] Adverse Reaction (Intermediate, Verified 12/21/23 13:03) LEG CRAMPS., leg cramps Tobacco use date assessed: 08/28/23 Fall risk assessment: No Falls in past year Dental Screening Dental Screen Date: 08/28/23 HPI 3mof\u HPI Details 83-year-old obese male with very good controlled diabetes atrial fibrillation hypertension lumbar degenerative disc disease on narcotic pain medication coronary artery disease chronic kidney disease and hypercholesterolemia last seen in August 2023.. Patient continues to follow-up with Nephrology 11/05/2023 diagnosis of chronic kidney disease hypertensive diabetic kidney disease stable history of postvoid residual in the past underlying obstructive uropathy concerns. Blood pressure well controlled advised do ultrasound of the kidneys mild secondary hyperparathyroidism PFSH Medical History Frequent UTI Cardiomyopathy Cardiac pacemaker in situ Complete heart block DDD (degenerative disc disease), lumbar CAD (coronary artery disease) BPH (benign prostatic hyperplasia) Chronic kidney disease (CKD) stage G4/A2, severely decreased glomerular filtration rate (GFR) between 15-29 mL/min/1.73 square meter and albuminuria creatinine ratio between 30-299 mg/g Hypercholesterolemia Paroxysmal atrial fibrillation Hypertension 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 2 diabetes mellitus residential (current) 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 Dyslipidemia CKD (chronic kidney disease) stage 4, GFR 15-29 ml/min Surgical History History of permanent cardiac pacemaker placement Hx of inguinal hernia surgery Family History Father Pancreatic cancer Mother Diabetes Alzheimers disease Social History (Reviewed 11/05/23 @ 10:28 by HAZEL Elizabeth Household Members: None Housing: House Alcohol intake: never Patient Tobacco Use Status: Never used Tobacco e-Cigarette/Vaping Use: Never Used Second Hand Smoke Exposure: No service: No Current occupational status: retired Current occupational exposures/hazards: No Cognitive needs: Yes (walker ) Hearing needs: Yes Vision needs: Yes Questionnaire Thrive Questionnaire Date Thrive assessed: 08/28/23 AUDIT C Alcohol Use Questionnaire (AUDIT-C) 1. How often do you have a drink containing alcohol?: Never Total Score: 0 CRISTIAN-7 AMB Questionnaire CRISTIAN-7 Date CRISTIAN - 7 assessed: 08/28/23 Feeling nervous, anxious, or on edge: 0 = Not at all Not being able to stop or control worryin = Not at all Worrying too much about different things: 0 = Not at all Trouble relaxin = Not at all Being so restless that it is hard to sit still: 0 = Not at all Becoming easily annoyed or irritable: 0 = Not at all Feeling afraid as if something awful might happen: 0 = Not at all Total CRISTIAN-7 score (0-4 normal; 5-9 mild; 10-14 moderate; 15-21 severe): 0 Source: Developed by Drs. Avery Sherman, Ebony Callahan, Shashi Goff and colleagues, with an educational ngoc from [employer]. Physical exam (Primary Care) Vital Signs: Last Vital Signs Pulse 75 12/21/23 13:03 BP 148/82 H 12/21/23 13:03 Pulse Ox 98 12/21/23 13:03 Oxygen Delivery Method Room Air 12/21/23 13:03 BMI result Body Mass Index 30.1 Tobacco/Smoking Status: Tobacco use Status Tobacco use date assessed 08/28/23 12/21/23 13:03 Patient Tobacco Use Status Never used Tobacco 12/21/23 13:03 e-Cigarette/Vaping Use Never Used 12/21/23 13:03 Thrive Assessment: Date of Thrive Assessment Date Thrive assessed 08/28/23 12/21/23 13:03 Const General: alert; No acute distress Eyes Conjunctivae: conjunctivae normal Resp Auscultation: clear to auscultation bilaterally Cardio Rate: regular rate Rhythm: regular rhythm GI Inspection: Yes normal to inspection Extrem General: Yes normal to inspection and No edema Assessment and Plan Assessment & Plan (1) Type 2 diabetes mellitus with hyperglycemia: Comment: REferred to Jose Luis Turcios- awaiting schedule Code(s): E11.65 - Type 2 diabetes mellitus with hyperglycemia Qualifiers: Diabetes mellitus intermediate insulin use: without terminal make up operator use Qualified Code(s): E11.65 - Type 2 diabetes mellitus with hyperglycemia Plan: Decrease the amount of carbohydrate intake, pasta, bread, rice and potatoes are all sugar and that is aside from all the sweet stuff, remember that fruits are good but they are Sweet also. Hemoglobin A1c goal of less than 7.0 patient has a tight control of the blood sugars (2) CKD (chronic kidney disease) stage 4, GFR 15-29 ml/min: Code(s): N18.4 - Chronic kidney disease, stage 4 (severe) Plan: Continue to follow-up with Nephrology avoid NSAIDs keep well hydrated keep diabetes under control keep blood pressure under control (3) Hypercholesterolemia: Comment: decline cholesterol med (03/2022) Code(s): E78.00 - Pure hypercholesterolemia, unspecified Plan: Avoid fried foods, chicken skin, eggs, butter margarine, pastries and meat. Be it pork or beef they have a lot of cholesterol LDL goal of less than 100 and triglyceride of less than 150 patient is on no cholesterol medication and declined any med (4) Hypertension: Code(s): I10 - Essential (primary) hypertension Qualifiers: Hypertension type: essential hypertension Qualified Code(s): I10 - Essential (primary) hypertension Plan: Continue with blood pressure medication. Decrease salt intake and exercise on hydrochlorothiazide and atenolol. GOOD BP is high (5) Paroxysmal atrial fibrillation: Comment: 05/2020 cardiology notes on anticoagulation- decline by patient Code(s): I48.0 - Paroxysmal atrial fibrillation Plan: Stable Coding Level of Care Code Est Pt Level 4 (31859) Diagnoses Type 2 diabetes mellitus with hyperglycemia, without long-term current 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 E11.65 Diabetes mellitus terminal make up operator insulin use: without intermediate use CKD (chronic kidney disease) stage 4, GFR 15-29 ml/min N18.4 Hypercholesterolemia E78.00 Essential hypertension I10 Hypertension type: essential hypertension Paroxysmal atrial fibrillation I48.0
[2023-12-21 13:03] VITALS: BP 148/82; PULSE 75; O2SAT 98; BMI 30.1
== END 2023-12-21 13:42 | disposition home or self-care (01) ==
PROVIDERS: PCP Internal Medicine; Visit Provider Internal Medicine
DX: I12.9 Hypertensive chronic kidney disease with stage 1 through stage 4 chronic kidney disease, or unspecified chronic kidney disease (principal); E11.65 Type 2 diabetes mellitus with hyperglycemia; N18.4 Chronic kidney disease, stage 4 (severe); I48.0 Paroxysmal atrial fibrillation; E78.00 Pure hypercholesterolemia, unspecified
CPT/HCPCS: 99214

== ENCOUNTER 2024-02-05 10:04 | Outpatient (AMB) | payer MEDICARE, SELFPAY ==
[2024-02-05 10:07] VITALS: BP 120/80; PULSE 64; BMI 30.6
--- NOTE | 2024-02-05 10:07 | HO.NEPHOV ---
Vital Signs 02/05/24 10:07 Height 6 ft 1 in Weight 232 lb BMI 30.6 BP 120/80 Blood Pressure Location Lt brachial Position Sitting Pulse 64 Intake Visit Reasons: 3 wks follow up/ Conf Intake Note: 3 week follow-up feeling good Client Consultant Required: No Allergies valsartan [From DIOVAN] Allergy (Mild, Verified 12/21/23 13:03) ITCHING losartan Allergy (Unknown, Verified 12/21/23 13:03) itch lisinopril [LISINOPRIL] Adverse Reaction (Intermediate, Verified 12/21/23 13:03) LEG CRAMPS., leg cramps Medication List - Last Reconciled 02/05/24 by Asif Domínguez MD atenolol 25 mg PO DAILY blood sugar diagnostic 1 strip miscellaneous QID 30 days hydrochlorothiazide 25 mg PO DAILY PRN 90 days insulin aspart (niacinamide) 100 unit/mL (3 mL) (Fiasp FlexTouch U-100 Insulin) 6 units with breakfast, 7 units with lunch and 8 units with dinner. subcut 3 times a day; 90 days insulin degludec (Tresiba FlexTouch U-100 insulin) 8 units (0.08 mL) subcut BEDTIME 90 days latanoprost 0.005% 1 drp ophthalmic (eye) DAILY lidocaine 4% (Aspercreme (lidocaine)) 1 patch topical DAILY PRN oxycodone 10 mg PO QID PRN pen needle, diabetic (BD Cherry 2nd Gen Pen Needle) 4 times a day [Pro REnal +D As directed] [RENADRYL As directed] HPI Comments Details: 82-year-old male with diabetes mellitus coronary artery disease atrial fibrillation hypercholesterolemia chronic kidney disease hypertension lumbar degenerative disc disease on narcotic pain medication Referred for CKD He was previously seen by Dr. Franklin but he has decided to switch his provider Baseline serum creatinine is around 2.2 mg/dL All the labs for the last 3 years was reviewed and serum creatinine has been between 2.0 and 2.4 mg/dL. No significant proteinuria based on the recent urine protein creatinine ratio Urine sediments were benign History of hypertension. BP has been high in the office but home blood pressure readings are excellent Blood sugar has been well controlled with a recent A1c of 5.3% Two years ago ultrasound showed normal-appearing kidneys without hydronephrosis and there was slightly elevated postvoid residual. He denies any urinary complaints like urgency increased frequency or hesitancy. No significant edema. No shortness of breath no chest. No nausea or vomiting. He is complaining of fatigue. He is retired. He lives alone. No history of any significant smoking alcohol abuse 02/05/24 Feels tired NO dyspnea PFSH Medical History Frequent UTI Cardiomyopathy Cardiac pacemaker in situ Complete heart block DDD (degenerative disc disease), lumbar CAD (coronary artery disease) BPH (benign prostatic hyperplasia) Chronic kidney disease (CKD) stage G4/A2, severely decreased glomerular filtration rate (GFR) between 15-29 mL/min/1.73 square meter and albuminuria creatinine ratio between 30-299 mg/g Hypercholesterolemia Paroxysmal atrial fibrillation Hypertension 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 2 diabetes mellitus assisted (current) 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 Dyslipidemia CKD (chronic kidney disease) stage 4, GFR 15-29 ml/min Surgical History History of permanent cardiac pacemaker placement Hx of inguinal hernia surgery Family History Father Pancreatic cancer Mother Diabetes Alzheimers disease Social History Household Members: None Housing: House Alcohol intake: never Patient Tobacco Use Status: Never used Tobacco e-Cigarette/Vaping Use: Never Used Second Hand Smoke Exposure: No service: No Current occupational status: retired Current occupational exposures/hazards: No Cognitive needs: Yes (walker ) Hearing needs: Yes Vision needs: Yes Physical Exam Vital Signs: Last Vital Signs Pulse 64 02/05/24 10:07 BP 120/80 02/05/24 10:07 BMI result Body Mass Index 30.6 Const General: comfortable Nutritional Appearance: well nourished Orientation/consciousness: patient oriented x3 HEENT Head: No normal to inspection Mouth: moist mucous membranes Neck Neck: Yes supple and Yes no JVD Resp Auscultation: clear to auscultation bilaterally, no rales and rub present Cardio Jugular venous distension: no JVD Palpation: no palpable S3 and no palpable S4 Heart sounds: no rubs GI Palpation (GI): Soft to palpation and nontender Percussion: No Fluid wave present General: Yes no CVA tenderness Back/Spine/Pelvis Back: no CVA tenderness Skin General skin exam: no rashes or lesions noted Neuro General: patient oriented x3 Extrem General: Yes no pedal edema and No clubbing Results Reviewed Nephrology Results: Hgb 12.5 g/dl (14.0-18.0) L 12/18/23 WBC 4.6 X10*3/uL (4.8-10.8) L 12/18/23 Plt Count 117 X10*3/uL (160-400) L 12/18/23 Sodium 141 mmol/L (135-145) 12/18/23 Potassium 4.1 mmol/L (3.3-5.1) 12/18/23 Chloride 103 mmol/L (96-108) 12/18/23 Carbon Dioxide 30 mmol/L (22-29) H 12/18/23 BUN 40 mg/dL (9-16) H 12/18/23 Creatinine 2.87 mg/dL (0.5-1.4) H 12/18/23 Calcium 10.2 mg/dL (8.4-10.2) 12/18/23 PTH Intact 126.5 pg/mL (8.7-77.1) H 10/15/23 Urine Protein Trace mg/dL (Neg-Trace) 10/15/23 Urine Creatinine 89.01 mg/dL 10/15/23 Renal US 11/06/23 Assessment & Plan Assessment & Plan (1) CKD (chronic kidney disease): Code(s): N18.9 - Chronic kidney disease, unspecified Category: Medical Plan 82-year-old man with a history of longstanding hypertension diabetes mellitus with stable chronic kidney disease. 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 He has no significant proteinuria. Over the last 3 years renal function has been relatively stable. Recent Creatinine 2.7 Can use HCTZ PRN No obstructive uropathy based on sonogram Hypertension Blood pressure is well controlled at this time based on home readings. Diabetes mellitus Blood sugar seems well controlled with the A1c of 8.3%. Mild anemia Recent hemoglobin was 12.5. Plan Follow renal panel Mild secondary Hyperparathyroidism- intact PTH mildly elevated Continue monitoring blood pressure at home. Stay on low-sodium diet Continue overt nephrotoxic agents including NSAIDs. Follow renal function closely Orders: Orders Complete Blood Count Auto Diff 3 Months N18.9 - Chronic kidney disease, unspecified Basic Metabolic Panel 3 Months N18.9 - Chronic kidney disease, unspecified Coding Level of Care Code Est Pt Level 4 (18926) Diagnoses CKD (chronic kidney disease) N18.9
== END 2024-02-05 10:27 | disposition home or self-care (01) ==
PROVIDERS: PCP Internal Medicine; Visit Provider Internal Medicine Hypertension Specialist
DX: N18.9 Chronic kidney disease, unspecified (principal)
CPT/HCPCS: 99214

== ENCOUNTER → 2024-02-05 10:04 | Outpatient (BNVA) | payer MEDICARE, SELFPAY | PROVIDERS: PCP Internal Medicine; Visit Provider Internal Medicine Hypertension Specialist | DX: E11.22 Type 2 diabetes mellitus with diabetic chronic kidney disease (principal); I12.9 Hypertensive chronic kidney disease with stage 1 through stage 4 chronic kidney disease, or unspecified chronic kidney disease; N18.9 Chronic kidney disease, unspecified; I25.10 Atherosclerotic heart disease of native coronary artery without angina pectoris; I48.0 Paroxysmal atrial fibrillation; E78.00 Pure hypercholesterolemia, unspecified | CPT/HCPCS: 99212 ==

== ENCOUNTER 2024-02-16 12:21 | Outpatient (AMB) | payer MEDICARE, SELFPAY ==
[2024-02-16 12:32] VITALS: BP 128/78; PULSE 60
--- NOTE | 2024-02-16 12:32 | MHC.OFFVIS ---
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 subcut 3 times a day; 90 days insulin degludec (Tresiba FlexTouch U-100 insulin) 8 units (0.08 mL) subcut BEDTIME 90 days latanoprost 0.005% 1 drp ophthalmic (eye) DAILY lidocaine 4% (Aspercreme (lidocaine)) 1 patch topical DAILY PRN oxycodone 10 mg PO QID PRN pen needle, diabetic (BD Cherry 2nd Gen Pen Needle) 4 times a day [Pro REnal +D As directed] [RENADRYL As directed] HPI Comments Details: Bandar comes for follow-up. He just complains of feeling more tired. He said he has not been able to exercise more uses a walker to walk. Denies any exertional chest pain or shortness of breath. Denies any orthopnea, PND, leg edema. No prolonged palpitations. No lightheadedness, syncope. 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 Dyslipidemia CKD (chronic kidney disease) stage 4, GFR 15-29 ml/min Surgical History History of permanent cardiac pacemaker placement Hx of inguinal hernia surgery Family History Father Pancreatic cancer Mother Diabetes Alzheimers disease Social History Household Members: None Housing: House Alcohol intake: never Patient Tobacco Use Status: Never used Tobacco e-Cigarette/Vaping Use: Never Used Second Hand Smoke Exposure: No service: No Current occupational status: retired Current occupational exposures/hazards: No Cognitive needs: Yes (walker ) Hearing needs: Yes Vision needs: Yes Review of Systems Const Denies chills, Denies fatigue, Denies fever(s), Denies frequent falls, Denies weakness, Denies weight gain and Denies weight loss ENT Denies dizziness Card Denies chest pain, Denies leg edema, Denies lightheadedness, Denies palpitations, Denies dyspnea, Denies dyspnea on exertion, Denies orthopnea and Denies other (loss of consciousness) Resp Denies cough, Denies dyspnea and Denies dyspnea on exertion GI Denies hematochezia and Denies change in stool character Musc Denies abnormal gait, Denies muscle weakness, Denies numbness, Denies radiating pain into limb and Denies tingling Neuro Denies abnormal gait, Denies dizziness, Denies frequent falls, Denies numbness, Denies tingling and Denies weakness Endo Denies fatigue and Denies palpitations Physical Exam Vital Signs: Last Vital Signs Pulse 60 02/16/24 12:32 BP 128/78 02/16/24 12:32 BMI result Body Mass Index 30.0 Const General: cooperative, comfortable, no acute distress, alert, awake and tired appearing Nutritional Appearance: average body habitus and other ( frail elderly man) Orientation/consciousness: patient oriented x3 Limitations: ambulation with walker Neck Neck: Yes trachea midline, Yes supple and Yes no JVD Resp Effort & Inspection: normal respiratory effort Auscultation: clear to auscultation bilaterally Cardio Jugular venous distension: no JVD Palpation: normal PMI Rate: regular rate Rhythm: regular rhythm Heart sounds: S1 normal heart sound present, S2 normal heart sound present, no click, no gallops, no murmurs and no rubs Skin General skin exam: no rashes or lesions noted and ecchymosis Neuro General: patient oriented x3 and no focal motor deficits Extrem General: Yes no clubbing, cyanosis or edema Office Procedures Cardiac Device Check Cardiac Device Check Details: Dual-chamber Medtronic pacemaker in place programmed in DDD at 60 beats per minute. Ventricular pacing 100% time. Multiple rate drop episodes noted. No atrial fibrillation noted. Atrial pacing thresholds adequate. Ventricular pacing thresholds elevated. Atrial sensing and ventricular sensing is adequate. Pacing lead impedance is stable. Battery life is about 17 months [id number] Cardiac Device Check, pacemaker dual lead Procedure code (CPT) selection complete Assessment & Plan Assessment & Plan (1) Paroxysmal atrial fibrillation: Comment: 05/2020 cardiology notes on anticoagulation- decline by patient Code(s): I48.0 - Paroxysmal atrial fibrillation Category: Medical Plan: Prior history of paroxysmal atrial fibrillation with no obvious clinical recurrence on pacer telemetry. Continue atenolol therapy. Has declined oral anticoagulation therapy in the past. (2) Cardiac pacemaker in situ: Code(s): Z95.0 - Presence of cardiac pacemaker Category: Medical Plan: Cardiac pacemaker in-situ for syncopal episodes, currently ventricularly pacer dependent. Pacemaker is working well. Does not want remote monitoring. Will follow up in the clinic in 6 months time. Pacemaker was reprogrammed for adequate functioning. (3) Cardiomyopathy: Code(s): I42.9 - Cardiomyopathy, unspecified Category: Medical Qualifiers: Cardiomyopathy type: unspecified Qualified Code(s): I42.9 - Cardiomyopathy, unspecified Plan: Mild cardiomyopathy without any overt heart failure syndrome at this point time. Has not tolerated lisinopril therapy in the past and has currently chronic kidney disease. Continue aggressive blood pressure control, currently on atenolol therapy. Continue hydrochlorothiazide therapy. Signs and symptoms of heart failure were discussed. Will follow up in the clinic in 6 months time, sooner p.r.n.. Thank you for allowing me to partake in his care Coding Level of Care Code Est Pt Level 4 (58506) Diagnoses Paroxysmal atrial fibrillation I48.0 Cardiac pacemaker in situ Z95.0 Cardiomyopathy, unspecified type I42.9 Cardiomyopathy type: unspecified CPT Codes Cardiac Device Check - Cardiac Device 2: [id number] Cardiac Device Check, pacemaker dual lead ([id number])
== END 2024-02-16 12:52 | disposition home or self-care (01) ==
PROVIDERS: PCP Internal Medicine; Visit Provider Internal Medicine Cardiovascular Disease
DX: I48.0 Paroxysmal atrial fibrillation (principal); Z95.0 Presence of cardiac pacemaker; I42.9 Cardiomyopathy, unspecified
CPT/HCPCS: 93280; 99214

== ENCOUNTER → 2024-02-16 12:21 | Outpatient (BNVA) | payer MEDICARE, SELFPAY | PROVIDERS: PCP Internal Medicine; Visit Provider Internal Medicine Cardiovascular Disease | DX: I48.0 Paroxysmal atrial fibrillation (principal); I42.9 Cardiomyopathy, unspecified; Z45.018 Encounter for adjustment and management of other part of cardiac pacemaker | CPT/HCPCS: 93280; 99212 ==

== ENCOUNTER 2024-03-22 13:25 | Outpatient (AMB) | payer MEDICARE, SELFPAY ==
--- NOTE | 2024-03-22 13:29 | A.OFFVIS_ITS ---
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 He is a patient of Dr. Falk. He seen for the following urologic conditions - lower urinary tract symptoms - recurrent UTI Yearly follow-up No medications UA is clear Has used cranberry pills which he finds helpful for protecting against UTI Lower urinary tract symptoms Unable to tolerate oral medications secondary to hypotension Recurring UTI Has been on demand os and cranberry pills He says he finds this helpful Maintaining fluid intake PFS Medical History Frequent UTI Cardiomyopathy Cardiac pacemaker in situ Complete heart block DDD (degenerative disc disease), lumbar CAD (coronary artery disease) BPH (benign prostatic hyperplasia) Chronic kidney disease (CKD) stage G4/A2, severely decreased glomerular filtration rate (GFR) between 15-29 mL/min/1.73 square meter and albuminuria creatinine ratio between 30-299 mg/g Hypercholesterolemia Paroxysmal atrial fibrillation Hypertension 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 2 diabetes mellitus 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) 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 Dyslipidemia CKD (chronic kidney disease) stage 4, GFR 15-29 ml/min Surgical History History of permanent cardiac pacemaker placement Hx of inguinal hernia surgery Family History Father Pancreatic cancer Mother Diabetes Alzheimers disease Social History Household Members: None Housing: House Alcohol intake: never Patient Tobacco Use Status: Never used Tobacco e-Cigarette/Vaping Use: Never Used Second Hand Smoke Exposure: No service: No Current occupational status: retired Current occupational exposures/hazards: No Cognitive needs: Yes (walker ) Hearing needs: Yes Vision needs: Yes Review of Systems Const Denies chills and Denies fever(s) Card Reports no additional complaints and Denies syncope Resp Denies cough GI Denies abdominal pain and Denies heartburn Reports as per HPI and Denies change in libido Neuro Denies syncope Psych Denies change in libido Endo Denies change in libido Physical Exam Const General: cooperative, healthy appearing, comfortable and no acute distress Orientation/consciousness: patient oriented x3 HEENT Face and sinus: Yes normal facial exam Mouth: moist mucous membranes Neck Neck: Yes normal visual inspection, Yes full ROM and Yes trachea midline Chest Chest palpation & inspection: normal inspection of the chest Resp Effort & Inspection: normal respiratory effort, able to speak in complete sentences and no respiratory distress GI Inspection: Yes normal to inspection Back/Spine/Pelvis Cervical Spine: normal cervical lordosis Thoracic/Lumbar Spine: thoracic and lumbar spine normal to inspection Skin General skin exam: no rashes or lesions noted Neuro General: patient oriented x3, gait normal, tone normal and moves all extremities Extrem General: Yes normal to inspection and Yes capillary refill normal Results AMB Urinalysis, Automated UA Leukoctes 0 Elizabet/uL Last Edit by TOREY Cabral on 03/22/24 13:48 UA Nitrite Negative Last Edit by TOREY Cabral on 03/22/24 13:48 UA Urobilinogen 0.2 mg/dL Last Edit by TOREY Cabral on 03/22/24 13:4 8 UA Protein 30 mg/dL Last Edit by TOREY Cabral on 03/22/24 13:48 UA pH 6.0 Last Edit by TOREY Cabral on 03/22/24 13:48 UA Blood 0 Luigi/uL Last Edit by TOREY Cabral on 03/22/24 13:48 UA Specific Wharton 1.015 Last Edit by TOREY Cabral on 03/22/24 13: 48 UA Ketone Negative Last Edit by TOREY Cabral on 03/22/24 13:48 UA Bilirubin 0 mg/dL Last Edit by TOREY Cabral on 03/22/24 13:48 UA Glucose 0 mg/dL Last Edit by TOREY Cabral on 03/22/24 13:48 Results Reviewed Results Reviewed: Laboratory Last Values Urine pH (Auto) 6.0 03/22/24 13:47 Specific Wharton (Auto) 1.015 03/22/24 13:47 Urine Protein (Auto) 30 mg/dL 03/22/24 13:47 Glucose (UA)(Auto) 0 mg/dL 03/22/24 13:47 Urine Ketones (Auto) Negative 03/22/24 13:47 Urine Blood (Auto) 0 Luigi/uL 03/22/24 13:47 Urine Nitrite (Auto) Negative 03/22/24 13:47 Urine Bilirubin (Auto) 0 mg/dL 03/22/24 13:47 Urine Urobilinogen (Auto) 0.2 mg/dL 03/22/24 13:47 Leukocyte Esterase (Auto) 0 Elizabet/uL 03/22/24 13:47 Assessment & Plan Assessment & Plan (1) Frequent UTI: Code(s): N39.0 - Urinary tract infection, site not specified Category: Medical Plan Twelve month follow-up Orders: Orders AMB Urinalysis Automated Today Z13.9 - Encounter for screening, unspecified Patient Instructions: Imaging studies, laboratory and physical exam results were discussed and reviewed in detail. No major barriers to patient understanding were identified. An opportunity to ask questions regarding the treatment plan was provided. All questions were answered. The patient expressed understanding and agreement with the above treatment plan. The patient is aware they should contact our office by phone for worsening of their current condition or the appearance of new urologic symptoms. Compliance is encouraged with any medications and followup testing that is ordered. It is a privilege to participate in the urologic care of your patient. If you h ave any questions or concerns regarding treatment for the above conditions, or other urologic issues, please do not hesitate to contact me. The office telephone contact is [phone]. This note is constructed using voice recognition software. While every effort has been made to ensure accuracy train caller errors may have been included. Yours sincerely, Dr Greg Gtz MD, [facility] - Urology Providers of Expert, Compassionate Care for the Genitourinary System Coding Level of Care Code Est Pt Level 4 (08257) Diagnoses Frequent UTI N39.0
== END 2024-03-22 14:40 | disposition home or self-care (01) ==
PROVIDERS: PCP Internal Medicine; Visit Provider Urology
DX: Z13.9 Encounter for screening, unspecified (principal); N39.0 Urinary tract infection, site not specified
CPT/HCPCS: 99214

== ENCOUNTER → 2024-03-22 13:25 | Outpatient (BNVA) | payer MEDICARE, SELFPAY | PROVIDERS: PCP Internal Medicine; Visit Provider Urology | DX: N39.0 Urinary tract infection, site not specified (principal) | CPT/HCPCS: 81003; 99212 ==

== ENCOUNTER 2024-04-29 09:32 | Outpatient (REF) | payer MEDICARE, SELFPAY ==
[2024-04-29 13:03] LABS: MANUAL DIFF FLAG NO
[2024-04-29 13:05] LABS: Basophils Percent Auto 0.5 % (0-2); Eosinophils Absolute Auto 0.1 X10*3/uL (0.0-0.4); Eosinophils Percent Auto 2.2 % (0-4); Hemoglobin 12.8 g/dl (14.0-18.0); Imm Gran Abs Auto 0.01 X10*3/uL (0.00-0.03); Imm Gran Pct Auto 0.2 % (0.0-0.4); Lymphocytes Absolute Auto 1.9 X10*3/uL (1.2-4.9); Lymphocytes Percent Auto 32.1 % (20-40); Mean Corpuscular HGB Conc 32.8 g/dl (31.0-36.0); Mean Corpuscular Hemoglobin 31.1 pg (27.0-33.0); Mean Corpuscular Volume 94.7 fL (80.0-98.0); Mean Platelet Volume 12.9 fL (9.4-12.4); Monocytes Absolute Auto 0.4 X10*3/uL (0.1-1.2); Monocytes Percent Auto 7.2 % (2-11); Neutrophils Absolute Auto 3.4 x10*3/uL (2.0-8.3); Neutrophils Percent Auto 57.8 % (45-73); Platelet Count 133 X10*3/uL (160-400); Red Blood Count 4.12 X10*6/uL (4.60-5.80); Red Cell Distribution Width 14.2 % (11.0-16.0)
[2024-04-29 13:30] LABS: Anion Gap 13 (12-20); Blood Urea Nitrogen 31 mg/dL (9-16); Calcium 10.1 mg/dL (8.4-10.2); Carbon Dioxide 28 mmol/L (22-29); Chloride 105 mmol/L (96-108); Estimated Glomerular Filt Rate 25; Glucose Random 148 mg/dL (60-115); Potassium 4.5 mmol/L (3.3-5.1); Sodium 141 mmol/L (135-145)
== END 2024-04-29 09:33 | disposition home or self-care (01) ==
LOC: HO.HMGCLDS 09:32
PROVIDERS: Visit Provider Internal Medicine Hypertension Specialist
DX: N18.9 Chronic kidney disease, unspecified (principal)
CPT/HCPCS: 36415; 80048; 85025

== ENCOUNTER 2024-05-03 11:11 | Outpatient (AMB) | payer MEDICARE, SELFPAY ==
[2024-05-03 11:14] VITALS: BP 140/62; PULSE 61; O2SAT 99; BMI 30.5
--- NOTE | 2024-05-03 11:14 | HO.NEPHOV ---
Vital Signs 05/03/24 11:14 Height 6 ft 1 in Weight 231 lb BMI 30.5 BP 140/62 H Blood Pressure Location Lt brachial Position Sitting Pulse 61 Pulse Source Pulse Oximeter Pulse Oximetry (%) 99 Oxygen Delivery Method Room Air Intake Visit Reasons: CKD/ Conf Revenue Coordinator Required: No Accompanied by: Self / Same As Patient Allergies valsartan [From DIOVAN] Allergy (Mild, Verified 05/03/24 11:15) ITCHING losartan Allergy (Unknown, Verified 05/03/24 11:15) itch lisinopril [LISINOPRIL] Adverse Reaction (Intermediate, Verified 05/03/24 11:15) LEG CRAMPS., leg cramps Medication List - Last Reconciled 05/03/24 by Asif Domínguez MD atenolol 25 mg PO DAILY blood sugar diagnostic 1 strip miscellaneous QID 30 days hydrochlorothiazide 25 mg PO DAILY PRN 90 days insulin aspart (niacinamide) 100 unit/mL (3 mL) (Fiasp FlexTouch U-100 Insulin) 6 units with breakfast, 7 units with lunch and 8 units with dinner. subcut 3 times a day; 90 days insulin degludec (Tresiba FlexTouch U-100 insulin) 8 units (0.08 mL) subcut BEDTIME 90 days latanoprost 0.005% 1 drp ophthalmic (eye) DAILY lidocaine 4% (Aspercreme (lidocaine)) 1 patch topical DAILY PRN oxycodone 10 mg PO QID PRN pen needle, diabetic (BD Cherry 2nd Gen Pen Needle) 4 times a day [Pro REnal +D As directed] [RENADRYL As directed] HPI Comments Details: 82-year-old male with diabetes mellitus coronary artery disease atrial fibrillation hypercholesterolemia chronic kidney disease hypertension lumbar degenerative disc disease on narcotic pain medication Referred for CKD He was previously seen by Dr. Franklin but he has decided to switch his provider Baseline serum creatinine is around 2.2 mg/dL All the labs for the last 3 years was reviewed and serum creatinine has been between 2.0 and 2.4 mg/dL. No significant proteinuria based on the recent urine protein creatinine ratio Urine sediments were benign History of hypertension. BP has been high in the office but home blood pressure readings are excellent Blood sugar has been well controlled with a recent A1c of 5.3% Two years ago ultrasound showed normal-appearing kidneys without hydronephrosis and there was slightly elevated postvoid residual. He denies any urinary complaints like urgency increased frequency or hesitancy. No significant edema. No shortness of breath no chest. No nausea or vomiting. He is complaining of fatigue. He is retired. He lives alone. No history of any significant smoking alcohol abuse 02/05/24 Feels tired; NO dyspnea 05/03/24: Feels about the same. Frequent UTIs - seen by [facility] Medical History Frequent UTI Cardiomyopathy Cardiac pacemaker in situ Complete heart block DDD (degenerative disc disease), lumbar CAD (coronary artery disease) BPH (benign prostatic hyperplasia) Chronic kidney disease (CKD) stage G4/A2, severely decreased glomerular filtration rate (GFR) between 15-29 mL/min/1.73 square meter and albuminuria creatinine ratio between 30-299 mg/g Hypercholesterolemia Paroxysmal atrial fibrillation Hypertension 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 2 diabetes mellitus 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 Dyslipidemia CKD (chronic kidney disease) stage 4, GFR 15-29 ml/min Surgical History History of permanent cardiac pacemaker placement Hx of inguinal hernia surgery Family History Father Pancreatic cancer Mother Diabetes Alzheimers disease Social History Household Members: None Housing: House Alcohol intake: never Patient Tobacco Use Status: Never used Tobacco e-Cigarette/Vaping Use: Never Used Second Hand Smoke Exposure: No service: No Current occupational status: retired Current occupational exposures/hazards: No Cognitive needs: Yes (walker ) Hearing needs: Yes Vision needs: Yes Physical Exam Vital Signs: Last Vital Signs Pulse 61 05/03/24 11:14 BP 140/62 H 05/03/24 11:14 Pulse Ox 99 05/03/24 11:14 Oxygen Delivery Method Room Air 05/03/24 11:14 BMI result Body Mass Index 30.5 Results Reviewed Nephrology Results: Hgb 12.8 g/dl (14.0-18.0) L 04/29/24 WBC 6.0 X10*3/uL (4.8-10.8) 04/29/24 Plt Count 133 X10*3/uL (160-400) L 04/29/24 Sodium 141 mmol/L (135-145) 04/29/24 Potassium 4.5 mmol/L (3.3-5.1) 04/29/24 Chloride 105 mmol/L (96-108) 04/29/24 Carbon Dioxide 28 mmol/L (22-29) 04/29/24 BUN 31 mg/dL (9-16) H 04/29/24 Creatinine 2.46 mg/dL (0.5-1.4) H 04/29/24 Calcium 10.1 mg/dL (8.4-10.2) 04/29/24 Renal US 11/06/23 Assessment & Plan Assessment & Plan (1) CKD (chronic kidney disease): Code(s): N18.9 - Chronic kidney disease, unspecified Category: Medical Plan 82-year-old man with a history of longstanding hypertension diabetes mellitus with stable chronic kidney disease. 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 He has no significant proteinuria. Over the last 3 years renal function has been relatively stable. Recent Creatinine 2.4 ( down fom 2.7) and eGFR is about 24 ml/mt Can use HCTZ PRN No obstructive uropathy based on sonogram Hypertension Blood pressure is well controlled at this time based on home readings. Diabetes mellitus Blood sugar seems well controlled Mild anemia Recent hemoglobin was 12.8 Plan Follow renal panel Mild secondary Hyperparathyroidism- intact PTH mildly elevated Continue monitoring blood pressure at home. Stay on low-sodium diet Continue overt nephrotoxic agents including NSAIDs. Follow renal function closely Orders: Orders Basic Metabolic Panel 4 Months N18.9 - Chronic kidney disease, unspecified Complete Blood Count no Diff 4 Months N18.9 - Chronic kidney disease, unspecified Coding Level of Care Code Est Pt Level 4 (00874) Diagnoses CKD (chronic kidney disease) N18.9
== END 2024-05-03 11:25 | disposition home or self-care (01) ==
PROVIDERS: PCP Internal Medicine; Visit Provider Internal Medicine Hypertension Specialist
DX: I12.9 Hypertensive chronic kidney disease with stage 1 through stage 4 chronic kidney disease, or unspecified chronic kidney disease (principal); E11.22 Type 2 diabetes mellitus with diabetic chronic kidney disease; N18.9 Chronic kidney disease, unspecified
CPT/HCPCS: 99214

== ENCOUNTER → 2024-05-03 11:11 | Outpatient (BNVA) | payer MEDICARE, SELFPAY | PROVIDERS: PCP Internal Medicine; Visit Provider Internal Medicine Hypertension Specialist | DX: I12.9 Hypertensive chronic kidney disease with stage 1 through stage 4 chronic kidney disease, or unspecified chronic kidney disease (principal); N18.4 Chronic kidney disease, stage 4 (severe) | CPT/HCPCS: 99212 ==

== ENCOUNTER 2024-06-20 09:25 | Outpatient (REF) | payer MEDICARE, SELFPAY ==
[2024-06-20 13:21] LABS: Basophils Percent Auto 0.4 % (0-2); Eosinophils Absolute Auto 0.1 X10*3/uL (0.0-0.4); Eosinophils Percent Auto 2.2 % (0-4); Hematocrit 37.2 % (42.0-52.0); Hemoglobin 12.1 g/dl (14.0-18.0); Imm Gran Abs Auto 0.01 X10*3/uL (0.00-0.03); Imm Gran Pct Auto 0.2 % (0.0-0.4); Lymphocytes Absolute Auto 1.6 X10*3/uL (1.2-4.9); Lymphocytes Percent Auto 35.4 % (20-40); MANUAL DIFF FLAG SCAN; Mean Corpuscular HGB Conc 32.5 g/dl (31.0-36.0); Mean Corpuscular Hemoglobin 31.3 pg (27.0-33.0); Mean Corpuscular Volume 96.1 fL (80.0-98.0); Monocytes Absolute Auto 0.4 X10*3/uL (0.1-1.2); Monocytes Percent Auto 9.5 % (2-11); Neutrophils Absolute Auto 2.4 x10*3/uL (2.0-8.3); Neutrophils Percent Auto 52.3 % (45-73); PLT CLUMP 1; Red Blood Count 3.87 X10*6/uL (4.60-5.80); Red Cell Distribution Width 13.8 % (11.0-16.0); Retic HGB Equivalent 34.2 pg (30.0-35.0); Reticulocyte Percent 2.1 % (0.5-1.8); Reticulocytes Absolute 0.082 X10*6/uL (0.026-0.095); SCAN SMEAR FLAG 1
[2024-06-20 13:33] LABS: Estimated Average Glucose 111 mg/dL; Hemoglobin A1C 111.8833 umol/L; Hemoglobin A1c % 5.5 % (<6.0); Total Hemoglobin (HGBA1C) 3064.5336 umol/L
[2024-06-20 13:56] LABS: Alanine Aminotransferase 26 U/L (0-40); Albumin Level 4.1 g/dL (3.5-5.0); Alkaline Phosphatase 44 U/L (39-117); Anion Gap 10 (12-20); Aspartate Amino Transferase 32 U/L (5-37); Bilirubin Total 0.9 mg/dL (0.0-1.0); Blood Urea Nitrogen 27 mg/dL (9-16); Calcium 9.6 mg/dL (8.4-10.2); Carbon Dioxide 28 mmol/L (22-29); Chloride 108 mmol/L (96-108); Cholesterol 177 mg/dL (<200); Estimated Glomerular Filt Rate 24; Glucose Random 133 mg/dL (60-115); HDL Cholesterol 53 mg/dL (>40); Iron 71 mcg/dL (45-160); LDL Cholesterol Calculated 107 mg/dL (<100); Percent Iron Saturation 34 % (15-50); Potassium 4.1 mmol/L (3.3-5.1); Sodium 142 mmol/L (135-145); Total Iron Binding Capacity 206 mcg/dL (228-428); Total Protein 6.7 g/dL (6.5-8.0); Triglycerides 85 mg/dL (<150); Unsaturated Iron Binding 135 ug/dL
[2024-06-20 14:14] LABS: Ferritin 177 ng/mL (20-250)
[2024-06-20 14:19] LABS: Folate 19.7 ng/mL (> or = 4.0); Vitamin B12 > 2000 pg/mL (200-900)
[2024-06-20 14:42] LABS: White Blood Count 4.6 X10*3/uL (4.8-10.8)
[2024-06-20 14:43] LABS: Mean Platelet Volume 12.9 fL (9.4-12.4); Platelet Count 117 X10*3/uL (160-400); SLIDE REVIEW VERIFIED
== END 2024-06-20 09:26 | disposition home or self-care (01) ==
LOC: HO.HMGCLDS 09:25
PROVIDERS: PCP Internal Medicine; Visit Provider Internal Medicine
DX: E11.65 Type 2 diabetes mellitus with hyperglycemia (principal); E78.00 Pure hypercholesterolemia, unspecified
CPT/HCPCS: 36415; 80053; 80061; 82607; 82728; 82746; 83036; 83540; 85025; 85045

== ENCOUNTER 2024-06-22 13:55 | Outpatient (AMB) | payer MEDICARE, SELFPAY ==
--- NOTE | 2024-06-22 13:59 | MHC.PC.OV ---
Vital Signs 06/22/24 14:01 06/22/24 14:30 Height 6 ft 1 in Weight 234 lb 8 oz BMI 30.9 BP 150/82 H 144/78 H Blood Pressure Location Lt brachial Lt brachial Position Sitting Sitting Pulse 70 Pulse Source Pulse Oximeter Temp 96.9 F Temp Source Skin Pulse Oximetry (%) 99 Oxygen Delivery Method Room Air Intake Visit Reasons: follow up Intake Note: Patient is here to follow up on DM, CKD, HTN. Consumer Safety Inspector Required: No Lens Cutter: Not Required per policy Accompanied by: Self / Same As Patient Allergies valsartan [From DIOVAN] Allergy (Mild, Verified 06/22/24 14:01) ITCHING losartan Allergy (Unknown, Verified 06/22/24 14:01) itch lisinopril [LISINOPRIL] Adverse Reaction (Intermediate, Verified 06/22/24 14:01) LEG CRAMPS., leg cramps Medication List - Last Reconciled 06/22/24 by Cassandra Chan PA-C atenolol 25 mg PO DAILY blood sugar diagnostic 1 strip miscellaneous QID 30 days hydrochlorothiazide 25 mg PO DAILY PRN 90 days insulin aspart (niacinamide) 100 unit/mL (3 mL) (Fiasp FlexTouch U-100 Insulin) 6 units with breakfast, 7 units with lunch and 8 units with dinner. subcut 3 times a day; 90 days insulin degludec (Tresiba FlexTouch U-100 insulin) 8 units (0.08 mL) subcut BEDTIME 90 days latanoprost 0.005% 1 drp ophthalmic (eye) DAILY lidocaine 4% (Aspercreme (lidocaine)) 1 patch topical DAILY PRN oxycodone 10 mg PO QID PRN pen needle, diabetic (BD Cherry 2nd Gen Pen Needle) 4 times a day [Pro REnal +D As directed] [RENADRYL As directed] Tobacco use date assessed: 06/22/24 Fall risk assessment: No Falls in past year Last assessed Fall Risk: 06/22/24 Dental Screening Dental Screen Date: 06/22/24 Did you have a dental visit in the last 12 months?: No Did you have a dental problem in the last 6 months where you did not have access to dental care?: No Was dental information given to patient?: No (dentures) HPI follow up HPI Details 83-year-old male with past medical history of controlled diabetes mellitus, atrial fibrillation, hypertension, lumbar degenerative disc disease on narcotic pain medication, coronary artery disease, chronic kidney disease and hypercholesterolemia last seen 12/[address] Almanza coming in for follow up. In review of the notes, patient was seen by ecologist technician 04/2024 kidney function stable continue to monitor renal function.?Patient was seen by Urology 03/2024 advised yearly follow up.?Saw cardiology 02/2024 continue on atenolol for atrial fibrillation advised to continue on hydrochlorothiazide and follow up in 6 months. Patient tells us today his blood sugars at home have been within his goal range. He very rarely has blood sugars below 100. He also takes his blood pressures at home they have been in the 120 systolic to 70-80 diastolic range. He has no acute concerns today. [facility] Medical History Frequent UTI Cardiomyopathy Cardiac pacemaker in situ Complete heart block DDD (degenerative disc disease), lumbar CAD (coronary artery disease) BPH (benign prostatic hyperplasia) Chronic kidney disease (CKD) stage G4/A2, severely decreased glomerular filtration rate (GFR) between 15-29 mL/min/1.73 square meter and albuminuria creatinine ratio between 30-299 mg/g Hypercholesterolemia Paroxysmal atrial fibrillation Hypertension 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 2 diabetes mellitus [facility] (current) 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 Dyslipidemia CKD (chronic kidney disease) stage 4, GFR 15-29 ml/min Surgical History History of permanent cardiac pacemaker placement Hx of inguinal hernia surgery Family History Father Pancreatic cancer Mother Diabetes Alzheimers disease Social History Household Members: None Housing: House Alcohol intake: never Patient Tobacco Use Status: Never used Tobacco e-Cigarette/Vaping Use: Never Used Second Hand Smoke Exposure: No service: No Current occupational status: retired Current occupational exposures/hazards: No Cognitive needs: Yes (walker ) Hearing needs: Yes (Hearing aide) Vision needs: Yes Questionnaire PHQ-9 Over the last 2 weeks, how often have you been bothered by any of the following problems? 1. Little interest or pleasure in doing things: not at all 2. Feeling down, depressed, or hopeless: not at all 3. Trouble falling or staying asleep, or sleeping too much: not at all 4. Feeling tired or having little energy: not at all 5. Poor appetite or overeating: not at all 6. Feeling bad about yourself - or that you are a failure or have let yourself or your family down: not at all 7. Trouble concentrating on things, such as reading the newspaper or watching television: not at all 8. Moving or speaking so slowly that other people could have noticed. Or the opposite - being so fidgety or restless that you have been moving around a lot more than usual: not at all 9. Thoughts that you would be better off or of hurting yourself in some way: not at all Total score: 0 Depression Screening Interpretation: Negative Depression Screening Done: Yes Source: Developed by Drs. Avery Sherman, Ebony Callahan, Shashi Goff and colleagues, with an educational ngoc from [employer]. Thrive Questionnaire Date Thrive assessed: 06/22/24 I am a: Patient What is your living situation today?: I have a steady place to live Within the past 12 months, did the food you bought not last and you didn't have the money to get more?: Never true Within the past 12 months, did you worry whether your food would run out before you got money to buy more?: Never true Do you have trouble paying for medicines?: No Do you have trouble getting transportation to medical appointments?: No Do you have trouble paying your heating and electricity bill?: No Do you have trouble taking care of your child, family member or friend?: No Do you have trouble with day-to-day activities such as bathing, preparing meals, shopping, managing finances, etc.?: No Are you currently unemployed and looking for a job?: No Are you interested in more education?: No Please select the resources that you would like help with: None Currently or been in a relationship where the following occur: No concerns reported THRIVE Score: 0 AUDIT C Alcohol Use Questionnaire (AUDIT-C) 1. How often do you have a drink containing alcohol?: Monthly or less 2. How many drinks containing alcohol do you have on a typical day when you are drinking?: 1 or 2 3. How often do you have six or more drinks on one occasion?: Never Total Score: 1 CRISTIAN-7 AMB Questionnaire CRISTIAN-7 Date CRISTIAN - 7 assessed: 06/22/24 Feeling nervous, anxious, or on edge: 0 = Not at all Not being able to stop or control worryin = Not at all Worrying too much about different things: 0 = Not at all Trouble relaxin = Not at all Being so restless that it is hard to sit still: 0 = Not at all Becoming easily annoyed or irritable: 0 = Not at all Feeling afraid as if something awful might happen: 0 = Not at all Total CRISTIAN-7 score (0-4 normal; 5-9 mild; 10-14 moderate; 15-21 severe): 0 Source: Developed by Drs. Avery Sherman, Ebony Callahan, Shashi Goff and colleagues, with an educational ngoc from [employer]. Review of Systems Const Denies body aches, Denies chills, Denies fever(s), Denies headache(s) and Denies poor appetite Eyes Reports no additional complaints ENT Denies dizziness, Denies headache(s) and Reports hearing loss Card Denies chest pain, Denies lightheadedness and Denies dyspnea Resp Denies cough and Denies dyspnea GI Denies abdominal pain, Denies nausea and Denies vomiting Reports no additional complaints Musc Reports no additional complaints and Denies abnormal gait Skin/Breast Reports system reviewed and no additional complaints, except as documented Neuro Denies abnormal gait, Denies dizziness and Denies headache(s) Psych Reports no additional complaints Physical exam (Primary Care) Vital Signs: Last Vital Signs Temp 96.9 F 06/22/24 14:01 Pulse 70 06/22/24 14:01 BP 150/82 H 06/22/24 14:01 Pulse Ox 99 06/22/24 14:01 Oxygen Delivery Method Room Air 06/22/24 14:01 BMI result Body Mass Index 30.9 Tobacco/Smoking Status: Tobacco use Status Tobacco use date assessed 06/22/24 06/22/24 14:08 Patient Tobacco Use Status Never used Tobacco 06/22/24 14:08 e-Cigarette/Vaping Use Never Used 06/22/24 14:08 PHQ-9: PHQ-9 Score PHQ-9: Total score 0 06/22/24 14:08 Depression Screening Interpretation: Negative Thrive Assessment: Date of Thrive Assessment Date Thrive assessed 06/22/24 06/22/24 14:08 Currently or been in a relationship where the following occur: No concerns reported Const General: cooperative, healthy appearing, comfortable and no acute distress Orientation/consciousness: patient oriented x3 HENMT Head: Yes normocephalic Ears: hearing grossly normal bilaterally General nose exam: Normal external nose present Eyes General: appearance normal, both eyes and all related structures Conjunctivae: conjunctivae normal Neck Neck: Yes full ROM and Yes no lymphadenopathy Resp Effort & Inspection: normal respiratory effort Auscultation: clear to auscultation bilaterally, no crackles, no rales, no rhonchi and no wheezes Cardio Rate: regular rate Rhythm: regular rhythm Skin General skin exam: no rashes or lesions noted Neuro General: patient oriented x3 Gait exam (Neuro): Normal gait present Extrem General: Yes normal to inspection, Yes full ROM and No edema Psych Affect: normal affect Attitude: cooperative Insight: Good insight present (Psych) Judgement: Good judgement present (Psych) Coding Level of Care Code Est Pt Level 3 (70574) Diagnoses Type 2 diabetes mellitus with hyperglycemia, without long-term current 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 E11.65 Diabetes mellitus mcc insulin use: without ad terminal makeup operator use Cardiomyopathy, unspecified type I42.9 Cardiomyopathy type: unspecified Paroxysmal atrial fibrillation I48.0 Essential hypertension I10 Hypertension type: essential hypertension Chronic kidney disease (CKD) stage G4/A2, severely decreased glomerular filtration rate (GFR) between 15-29 mL/min/1.73 square meter and albuminuria creatinine ratio between 30-299 mg/g N18.4 Hypercholesterolemia E78.00 Diabetic polyneuropathy 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 2 diabetes mellitus E11.42 Diabetes mellitus complication detail: diabetic polyneuropathy Assessment & Plan Assessment & Plan (1) Type 2 diabetes mellitus with hyperglycemia: Comment: [facility] Code(s): E11.65 - Type 2 diabetes mellitus with hyperglycemia Category: Medical Qualifiers: Diabetes mellitus mcc insulin use: without mcc use Qualified Code(s): E11.65 - Type 2 diabetes mellitus with hyperglycemia Plan: Decrease the amount of carbohydrates such as pasta, bread, rice, and potatoes and limit the amount of sweets. Although fruits are generally healthy they should be eaten in moderation as they are still high in sugar. Hemoglobin A1c goal of less than 7%. (2) Cardiomyopathy: Code(s): I42.9 - Cardiomyopathy, unspecified Category: Medical Qualifiers: Cardiomyopathy type: unspecified Qualified Code(s): I42.9 - Cardiomyopathy, unspecified Plan: Patient has been following with cardiology for management of cardiomyopathy advised to continue on the atenolol and hydrochlorothiazide and follow up in 6 months. (3) Paroxysmal atrial fibrillation: Comment: 05/2020 cardiology notes on anticoagulation- decline by patient Code(s): I48.0 - Paroxysmal atrial fibrillation Category: Medical Plan: Patient seeing Cardiology for her paroxysmal atrial fibrillation not currently on anticoagulation. At last visit noted to not have recurrence of atrial fibrillation but continued on atenolol. Continue to follow with Cardiology (4) Hypertension: Code(s): I10 - Essential (primary) hypertension Category: Medical Qualifiers: Hypertension type: essential hypertension Qualified Code(s): I10 - Essential (primary) hypertension Plan: Continue on current blood pressure medication. Avoid salt intake and encourage healthy diet and regular exercise. Blood pressure mildly elevated today 144/78 when retaken. Advised to continue monitoring blood pressures at home and if they are above 140/90 to reach out to the office. (5) Chronic kidney disease (CKD) stage G4/A2, severely decreased glomerular filtration rate (GFR) between 15-29 mL/min/1.73 square meter and albuminuria creatinine ratio between 30-299 mg/g: Code(s): N18.4 - Chronic kidney disease, stage 4 (severe) Category: Medical Plan: Patient currently following with Nephrology kidney function stable advised to continue to avoid kidney irritants end-stage renal hydrated. (6) Hypercholesterolemia: Comment: decline cholesterol med (03/2022) Code(s): E78.00 - Pure hypercholesterolemia, unspecified Category: Medical Plan: Avoid foods that are high in cholesterol such as red meat, fried foods, eggs and baked goods. Triglyceride goal of less than 150 and LDL goal of less than 100. Not currently on medical management (7) Diabetic neuropathy 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 2 diabetes mellitus: Code(s): E11.40 - Type 2 diabetes mellitus with diabetic neuropathy, unspecified Category: Medical Qualifiers: Diabetes mellitus complication detail: diabetic polyneuropathy Qualified Code(s): E11.42 - Type 2 diabetes mellitus with diabetic polyneuropathy Plan: Advised good control of diabetes mellitus and not currently on medical management at this time. Plan This note was constructed using voice recognition software. While every effort has been made to ensure accuracy and hand stamper, still areas may have been included sometimes these areas may affect the content or meeting of the given symptoms. Total time spent caring for the patient today was 20 minutes. This includes time spent before the visit reviewing the chart, time spent during the visit, and time spent after the visit and documentation.
[2024-06-22 14:01] VITALS: BP 150/82; PULSE 70; TEMP 36.1; O2SAT 99; BMI 30.9
[2024-06-22 14:30] VITALS: BP 144/78
== END 2024-06-22 14:29 | disposition home or self-care (01) ==
PROVIDERS: PCP Internal Medicine
DX: I12.9 Hypertensive chronic kidney disease with stage 1 through stage 4 chronic kidney disease, or unspecified chronic kidney disease (principal); E11.65 Type 2 diabetes mellitus with hyperglycemia; I42.9 Cardiomyopathy, unspecified; I48.0 Paroxysmal atrial fibrillation; N18.4 Chronic kidney disease, stage 4 (severe); E11.42 Type 2 diabetes mellitus with diabetic polyneuropathy; E78.00 Pure hypercholesterolemia, unspecified

== ENCOUNTER → 2024-06-22 13:55 | Outpatient (BNVA) | payer MEDICARE, SELFPAY | PROVIDERS: PCP Internal Medicine | DX: E11.65 Type 2 diabetes mellitus with hyperglycemia (principal); I42.9 Cardiomyopathy, unspecified; I48.0 Paroxysmal atrial fibrillation; I12.9 Hypertensive chronic kidney disease with stage 1 through stage 4 chronic kidney disease, or unspecified chronic kidney disease; E11.22 Type 2 diabetes mellitus with diabetic chronic kidney disease; N18.4 Chronic kidney disease, stage 4 (severe); E78.00 Pure hypercholesterolemia, unspecified; E11.42 Type 2 diabetes mellitus with diabetic polyneuropathy | CPT/HCPCS: 99212 ==

== ENCOUNTER 2024-08-16 12:27 | Outpatient (AMB) | payer MEDICARE, SELFPAY ==
--- NOTE | 2024-08-16 12:47 | MHC.OFFVIS ---
Vital Signs 08/16/24 12:48 Height 6 ft 1 in Weight 224 lb 13.944 oz BMI 29.7 BP 122/68 Blood Pressure Location Lt brachial Position Sitting Pulse 60 Intake Visit Reasons: 6 mth fu w/ medtronic Intake Note: 6 month follow-up with ekg and Medtronic check would like to talk about having nitro Flatcar Whacker Required: No Allergies valsartan [From DIOVAN] Allergy (Mild, Verified 06/22/24 14:01) ITCHING losartan Allergy (Unknown, Verified 06/22/24 14:01) itch lisinopril [LISINOPRIL] Adverse Reaction (Intermediate, Verified 06/22/24 14:01) LEG CRAMPS., leg cramps Medication List - Last Reconciled 08/16/24 by Dionisio Cardenas MD atenolol 25 mg PO DAILY blood sugar diagnostic 1 strip miscellaneous QID 30 days hydrochlorothiazide 25 mg PO DAILY PRN 90 days insulin aspart (niacinamide) 100 unit/mL (3 mL) (Fiasp FlexTouch U-100 Insulin) 6 units with breakfast, 7 units with lunch and 8 units with dinner. subcut 3 times a day; 90 days insulin degludec (Tresiba FlexTouch U-100 insulin) 8 units (0.08 mL) subcut BEDTIME 90 days latanoprost 0.005% 1 drp ophthalmic (eye) DAILY lidocaine 4% (Aspercreme (lidocaine)) 1 patch topical DAILY PRN oxycodone 10 mg PO QID PRN pen needle, diabetic (BD Cherry 2nd Gen Pen Needle) 4 times a day [Pro REnal +D As directed] [RENADRYL As directed] HPI Comments Details: Bandar comes for follow-up. He has not had any symptoms of palpitations, lightheadedness, syncope. Had 1 episode of sharp chest pain that lasted for few seconds while he was getting out of the bed. No exertional chest pain or pressure in his chest. He denies any shortness of breath, orthopnea, PND. [facility] Medical History Frequent UTI Cardiomyopathy Cardiac pacemaker in situ Complete heart block DDD (degenerative disc disease), lumbar CAD (coronary artery disease) BPH (benign prostatic hyperplasia) Chronic kidney disease (CKD) stage G4/A2, severely decreased glomerular filtration rate (GFR) between 15-29 mL/min/1.73 square meter and albuminuria creatinine ratio between 30-299 mg/g Hypercholesterolemia Paroxysmal atrial fibrillation Hypertension 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 2 diabetes mellitus 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 (current) 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 Dyslipidemia CKD (chronic kidney disease) stage 4, GFR 15-29 ml/min Surgical History History of permanent cardiac pacemaker placement Hx of inguinal hernia surgery Family History Father Pancreatic cancer Mother Diabetes Alzheimers disease Social History Household Members: None Housing: House Alcohol intake: never Patient Tobacco Use Status: Never used Tobacco e-Cigarette/Vaping Use: Never Used Second Hand Smoke Exposure: No service: No Current occupational status: retired Current occupational exposures/hazards: No Cognitive needs: Yes (walker ) Hearing needs: Yes (Hearing aide) Vision needs: Yes Review of Systems Const Denies chills, Denies fatigue, Denies fever(s), Denies frequent falls, Denies weakness, Denies weight gain and Denies weight loss ENT Denies dizziness Card Denies chest pain, Denies leg edema, Denies lightheadedness, Denies palpitations, Denies dyspnea, Denies dyspnea on exertion, Denies orthopnea and Denies other (loss of consciousness) Resp Denies cough, Denies dyspnea and Denies dyspnea on exertion GI Denies hematochezia and Denies change in stool character Musc Denies abnormal gait, Denies muscle weakness, Denies numbness, Denies radiating pain into limb and Denies tingling Neuro Denies abnormal gait, Denies dizziness, Denies frequent falls, Denies numbness, Denies tingling and Denies weakness Endo Denies fatigue and Denies palpitations Physical Exam Vital Signs: Last Vital Signs Pulse 60 08/16/24 12:48 BP 122/68 08/16/24 12:48 BMI result Body Mass Index 29.7 Const General: cooperative, comfortable, no acute distress, alert, awake and tired appearing Nutritional Appearance: average body habitus and other ( frail elderly man) Orientation/consciousness: patient oriented x3 Limitations: ambulation with walker Neck Neck: Yes trachea midline, Yes supple and Yes no JVD Resp Effort & Inspection: normal respiratory effort Auscultation: clear to auscultation bilaterally Cardio Jugular venous distension: no JVD Palpation: normal PMI Rate: regular rate Rhythm: regular rhythm Heart sounds: S1 normal heart sound present, S2 normal heart sound present, no click, no gallops, no murmurs and no rubs Skin General skin exam: no rashes or lesions noted and ecchymosis Neuro General: patient oriented x3 and no focal motor deficits Extrem General: Yes no clubbing, cyanosis or edema Office Procedures Cardiac Device Check Cardiac Device Check Details: Dual-chamber Medtronic pacemaker in place. Programmed in DDD at 60 beats per minute. Ventricular pacing 100% of time. Atrial pacing 85% time. Two episodes of nonsustained VT noted. Atrial sensing is adequate. Ventricular sensing could not be checked. Atrial pacing thresholds excellent. Ventricular pacing thresholds adequate and reprogrammed to enhance battery life. Pacing lead impedance is stable. Battery life is at about 10 months 75780-AC Cardiac Device Check, pacemaker dual lead Procedure code (CPT) selection complete EKG Details: EKG shows atrially sensed, ventricularly paced rhythm [id number], Complete Assessment & Plan Assessment & Plan (1) Cardiac pacemaker in situ: Code(s): Z95.0 - Presence of cardiac pacemaker Category: Medical Plan: Cardiac pacemaker in-situ for complete heart block. Patient pacing in the ventricle 100% time. Pacemaker is working well. Coming close to battery replacement. Will monitor remotely he says he was home monitor. Will set it up. (2) Cardiomyopathy: Code(s): I42.9 - Cardiomyopathy, unspecified Category: Medical Qualifiers: Cardiomyopathy type: unspecified Qualified Code(s): I42.9 - Cardiomyopathy, unspecified Plan: Prior history of cardiomyopathy. Currently has refused repeat echocardiogram. No signs or symptoms of heart failure. Only neurohormonal modulation right now is atenolol. He can not tolerate other therapies due to low blood pressure as well as kidney issues. Signs and symptoms of heart failure were discussed. Follow up in the clinic in 6 months time, sooner p.r.n.. Thank you for allowing me to partake in his care Coding Level of Care Code Est Pt Level 4 (08937) Complex EM visit Add On G2211 Diagnoses Cardiac pacemaker in situ Z95.0 Cardiomyopathy, unspecified type I42.9 Cardiomyopathy type: unspecified CPT Codes Cardiac Device Check - Cardiac Device 2: 06024-PF Cardiac Device Check, pacemaker dual lead ([id number]) EKG - CPT: 05397-[id number], Complete ([id number])
[2024-08-16 12:48] VITALS: BP 122/68; PULSE 60; BMI 29.7
== END 2024-08-16 13:19 | disposition home or self-care (01) ==
LOC: HO.HCS 12:28
PROVIDERS: PCP Internal Medicine; Visit Provider Internal Medicine Cardiovascular Disease
DX: I42.9 Cardiomyopathy, unspecified (principal); Z95.0 Presence of cardiac pacemaker
CPT/HCPCS: 93010; 93280; 99214; G2211

== ENCOUNTER → 2024-08-16 12:27 | Outpatient (BNVA) | payer MEDICARE, SELFPAY | PROVIDERS: PCP Internal Medicine; Visit Provider Internal Medicine Cardiovascular Disease | DX: Z45.018 Encounter for adjustment and management of other part of cardiac pacemaker (principal); I42.9 Cardiomyopathy, unspecified; R94.31 Abnormal electrocardiogram [ECG] [EKG] | CPT/HCPCS: 93005; 93280; 99212 ==

== ENCOUNTER 2024-08-26 09:58 | Outpatient (REF) | payer MEDICARE, SELFPAY ==
[2024-08-26 13:37] LABS: Hematocrit 40.8 % (42.0-52.0); Hemoglobin 13.1 g/dl (14.0-18.0); Mean Corpuscular HGB Conc 32.1 g/dl (31.0-36.0); Mean Corpuscular Hemoglobin 30.5 pg (27.0-33.0); Mean Corpuscular Volume 94.9 fL (80.0-98.0); Mean Platelet Volume 12.6 fL (9.4-12.4); Platelet Count 137 X10*3/uL (160-400); Red Cell Distribution Width 13.6 % (11.0-16.0); White Blood Count 5.4 X10*3/uL (4.8-10.8)
[2024-08-26 13:51] LABS: Anion Gap 15 (12-20); Blood Urea Nitrogen 27 mg/dL (9-16); Calcium 9.8 mg/dL (8.4-10.2); Carbon Dioxide 27 mmol/L (22-29); Chloride 105 mmol/L (96-108); Estimated Glomerular Filt Rate 25; Glucose Random 129 mg/dL (60-115); Potassium 3.7 mmol/L (3.3-5.1); Sodium 143 mmol/L (135-145)
== END 2024-08-26 09:59 | disposition home or self-care (01) ==
LOC: HO.HMGCLDS 09:58
PROVIDERS: PCP Internal Medicine; Visit Provider Internal Medicine Hypertension Specialist
DX: N18.9 Chronic kidney disease, unspecified (principal)
CPT/HCPCS: 36415; 80048; 85027

== ENCOUNTER 2024-08-30 11:04 | Outpatient (AMB) | payer MEDICARE, SELFPAY ==
--- NOTE | 2024-08-30 11:04 | HO.NEPHOV ---
Vital Signs 08/30/24 11:05 08/30/24 11:15 Height 6 ft 1 in Weight 229 lb BMI 30.2 BP 162/78 H 120/60 Blood Pressure Location Rt brachial Rt brachial Position Sitting Sitting Pulse 67 Pulse Source Pulse Oximeter Pulse Oximetry (%) 98 Intake Visit Reasons: CKD/ Conf Rn Womens Health Required: No Accompanied by: Self / Same As Patient Allergies valsartan [From DIOVAN] Allergy (Mild, Verified 08/30/24 11:07) ITCHING losartan Allergy (Unknown, Verified 08/30/24 11:07) itch lisinopril [LISINOPRIL] Adverse Reaction (Intermediate, Verified 08/30/24 11:07) LEG CRAMPS., leg cramps Medication List - Last Reconciled 08/30/24 by Asif Domínguez MD atenolol 25 mg PO DAILY blood sugar diagnostic 1 strip miscellaneous QID 30 days hydrochlorothiazide 25 mg PO DAILY PRN 90 days insulin aspart (niacinamide) 100 unit/mL (3 mL) (Fiasp FlexTouch U-100 Insulin) 6 units with breakfast, 7 units with lunch and 8 units with dinner. subcut 3 times a day; 90 days insulin degludec (Tresiba FlexTouch U-100 insulin) 8 units (0.08 mL) subcut BEDTIME 90 days latanoprost 0.005% 1 drp ophthalmic (eye) DAILY [Siomara Freestyle glucose monitor As directed] lidocaine 4% (Aspercreme (lidocaine)) 1 patch topical DAILY PRN oxycodone 10 mg PO QID PRN pen needle, diabetic (BD Cherry 2nd Gen Pen Needle) 4 times a day [Pro REnal +D As directed] [RENADRYL As directed] HPI Comments Details: 82-year-old male with diabetes mellitus coronary artery disease atrial fibrillation hypercholesterolemia chronic kidney disease hypertension lumbar degenerative disc disease on narcotic pain medication Referred for CKD He was previously seen by Dr. Franklin but he has decided to switch his provider Baseline serum creatinine is around 2.2 mg/dL All the labs for the last 3 years was reviewed and serum creatinine has been between 2.0 and 2.4 mg/dL. No significant proteinuria based on the recent urine protein creatinine ratio Urine sediments were benign History of hypertension. BP has been high in the office but home blood pressure readings are excellent Blood sugar has been well controlled with a recent A1c of 5.3% Two years ago ultrasound showed normal-appearing kidneys without hydronephrosis and there was slightly elevated postvoid residual. He denies any urinary complaints like urgency increased frequency or hesitancy. No significant edema. No shortness of breath no chest. No nausea or vomiting. He is complaining of fatigue. He is retired. He lives alone. No history of any significant smoking alcohol abuse 02/05/24 Feels tired; NO dyspnea 05/03/24: Feels about the same.Frequent UTIs - seen by 08/30/24 No new issues Home BP 105/60 Gout in feet [facility] Medical History Frequent UTI Cardiomyopathy Cardiac pacemaker in situ Complete heart block DDD (degenerative disc disease), lumbar CAD (coronary artery disease) BPH (benign prostatic hyperplasia) Chronic kidney disease (CKD) stage G4/A2, severely decreased glomerular filtration rate (GFR) between 15-29 mL/min/1.73 square meter and albuminuria creatinine ratio between 30-299 mg/g Hypercholesterolemia Paroxysmal atrial fibrillation Hypertension 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 2 diabetes mellitus retirement (current) 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 Dyslipidemia CKD (chronic kidney disease) stage 4, GFR 15-29 ml/min Surgical History History of permanent cardiac pacemaker placement Hx of inguinal hernia surgery Family History Father Pancreatic cancer Mother Diabetes Alzheimers disease Social History Household Members: None Housing: House Alcohol intake: never Patient Tobacco Use Status: Never used Tobacco e-Cigarette/Vaping Use: Never Used Second Hand Smoke Exposure: No service: No Current occupational status: retired Current occupational exposures/hazards: No Cognitive needs: Yes (walker ) Hearing needs: Yes (Hearing aide) Vision needs: Yes Physical Exam Vital Signs: Last Vital Signs Pulse 67 08/30/24 11:05 BP 162/78 H 08/30/24 11:05 Pulse Ox 98 08/30/24 11:05 BMI result Body Mass Index 30.2 Const General: comfortable Nutritional Appearance: well nourished Orientation/consciousness: patient oriented x3 HEENT Head: No normal to inspection Mouth: moist mucous membranes Neck Neck: Yes supple and Yes no JVD Resp Auscultation: clear to auscultation bilaterally, no rales and rub present Cardio Jugular venous distension: no JVD Palpation: no palpable S3 and no palpable S4 Heart sounds: no rubs GI Palpation (GI): Soft to palpation and nontender Percussion: No Fluid wave present General: Yes no CVA tenderness Back/Spine/Pelvis Back: no CVA tenderness Skin General skin exam: no rashes or lesions noted Neuro General: patient oriented x3 Extrem General: Yes no pedal edema and No clubbing Results Reviewed Nephrology Results: Hgb 13.1 g/dl (14.0-18.0) L 08/26/24 WBC 5.4 X10*3/uL (4.8-10.8) 08/26/24 Plt Count 137 X10*3/uL (160-400) L 08/26/24 Sodium 143 mmol/L (135-145) 08/26/24 Potassium 3.7 mmol/L (3.3-5.1) 08/26/24 Chloride 105 mmol/L (96-108) 08/26/24 Carbon Dioxide 27 mmol/L (22-29) 08/26/24 BUN 27 mg/dL (9-16) H 08/26/24 Creatinine 2.48 mg/dL (0.5-1.4) H 08/26/24 Calcium 9.8 mg/dL (8.4-10.2) 08/26/24 Assessment & Plan Assessment & Plan (1) CKD (chronic kidney disease): Code(s): N18.9 - Chronic kidney disease, unspecified Category: Medical Plan 83-year-old man with a history of longstanding hypertension diabetes mellitus with stable chronic kidney disease. 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 He has no significant proteinuria. Over the last 3 years renal function has been relatively stable. Recent Creatinine 2.4 ( down fom 2.7) and eGFR is about 24 ml/mt Can use HCTZ PRN No obstructive uropathy based on sonogram Hypertension Blood pressure is well controlled at this time based on home readings. Diabetes mellitus Blood sugar seems well controlled Mild anemia Recent hemoglobin was 12.8 Plan Follow renal panel Mild secondary Hyperparathyroidism- intact PTH mildly elevated Continue monitoring blood pressure at home. Stay on low-sodium diet Continue to avoid nephrotoxic agents including NSAIDs. Follow renal function closely Orders: Orders Basic Metabolic Panel 4 Months N18.9 - Chronic kidney disease, unspecified Coding Level of Care Code Est Pt Level 4 (66691) Diagnoses CKD (chronic kidney disease) N18.9
[2024-08-30 11:05] VITALS: BP 162/78; PULSE 67; O2SAT 98; BMI 30.2
[2024-08-30 11:15] VITALS: BP 120/60
== END 2024-08-30 11:18 | disposition home or self-care (01) ==
LOC: HO.HKA 11:04
PROVIDERS: PCP Internal Medicine; Visit Provider Internal Medicine Hypertension Specialist
DX: N18.9 Chronic kidney disease, unspecified (principal)
CPT/HCPCS: 99214

== ENCOUNTER → 2024-08-30 11:04 | Outpatient (BNVA) | payer MEDICARE, SELFPAY | PROVIDERS: PCP Internal Medicine; Visit Provider Internal Medicine Hypertension Specialist | DX: E11.22 Type 2 diabetes mellitus with diabetic chronic kidney disease (principal); I12.9 Hypertensive chronic kidney disease with stage 1 through stage 4 chronic kidney disease, or unspecified chronic kidney disease; N18.9 Chronic kidney disease, unspecified; I25.10 Atherosclerotic heart disease of native coronary artery without angina pectoris; I48.91 Unspecified atrial fibrillation; E78.00 Pure hypercholesterolemia, unspecified | CPT/HCPCS: 99212 ==

== ENCOUNTER → 2024-09-06 23:59 | Outpatient (BNV) | payer MEDICARE, SELFPAY ==
--- NOTE | 2024-09-07 13:05 | MHC.OFFVIS ---
Intake Visit Reasons: Remote device check- [employer] Allergies valsartan [From DIOVAN] Allergy (Mild, Verified 08/30/24 11:07) ITCHING losartan Allergy (Unknown, Verified 08/30/24 11:07) itch lisinopril [LISINOPRIL] Adverse Reaction (Intermediate, Verified 08/30/24 11:07) LEG CRAMPS., leg cramps PFSH Medical History Frequent UTI Cardiomyopathy Cardiac pacemaker in situ Complete heart block DDD (degenerative disc disease), lumbar CAD (coronary artery disease) BPH (benign prostatic hyperplasia) Chronic kidney disease (CKD) stage G4/A2, severely decreased glomerular filtration rate (GFR) between 15-29 mL/min/1.73 square meter and albuminuria creatinine ratio between 30-299 mg/g Hypercholesterolemia Paroxysmal atrial fibrillation Hypertension 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 2 diabetes mellitus 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 Dyslipidemia CKD (chronic kidney disease) stage 4, GFR 15-29 ml/min Surgical History History of permanent cardiac pacemaker placement Hx of inguinal hernia surgery Family History Father Pancreatic cancer Mother Diabetes Alzheimers disease Social History Household Members: None Housing: House Alcohol intake: never Patient Tobacco Use Status: Never used Tobacco e-Cigarette/Vaping Use: Never Used Second Hand Smoke Exposure: No service: No Current occupational status: retired Current occupational exposures/hazards: No Cognitive needs: Yes (walker ) Hearing needs: Yes (Hearing aide) Vision needs: Yes Office Procedures Cardiac Device Check Cardiac Device Check Details: Remote pacemaker report generated 09/06/2024. Pacemaker function is adequate. Patient ventricularly pacer dependent [id number] Cardiac Device Interrogation, pacemaker Procedure code (CPT) selection complete Assessment & Plan Assessment & Plan (1) Cardiac pacemaker in situ: Code(s): Z95.0 - Presence of cardiac pacemaker Category: Medical Plan: See above Coding Level of Care Code Procedure Only Diagnoses Cardiac pacemaker in situ Z95.0 CPT Codes Cardiac Device Check - Cardiac Device 12: [id number] Cardiac Device Interrogation, pacemaker ([id number])
== END ==
PROVIDERS: PCP Internal Medicine; Visit Provider Internal Medicine Cardiovascular Disease
DX: Z45.018 Encounter for adjustment and management of other part of cardiac pacemaker (principal)
CPT/HCPCS: 93294

== ENCOUNTER 2024-10-20 11:42 | Outpatient (AMB) | payer MEDICARE, SELFPAY ==
[2024-10-20 11:45] VITALS: BP 162/80; PULSE 90; O2SAT 97; BMI 29.4
--- NOTE | 2024-10-20 11:45 | A.OFFPC_ITS ---
Vital Signs 10/20/24 11:45 Height 6 ft 1 in Weight 223 lb BMI 29.4 BP 162/80 H Blood Pressure Location Lt brachial Position Sitting Pulse 90 Pulse Source Pulse Oximeter Pulse Oximetry (%) 97 Oxygen Delivery Method Room Air Intake Visit Reasons: 3M Follow Up Allergies valsartan [From DIOVAN] Allergy (Mild, Verified 10/20/24 11:46) ITCHING losartan Allergy (Unknown, Verified 10/20/24 11:46) itch lisinopril [LISINOPRIL] Adverse Reaction (Intermediate, Verified 10/20/24 11:46) LEG CRAMPS., leg cramps Medication List - Last Reconciled 10/20/24 by Nestor Almanza MD atenolol 25 mg PO DAILY blood sugar diagnostic 1 strip miscellaneous QID 30 days blood-glucose sensor (FreeStyle Siomara 2 Plus Sensor device) As directed hydrochlorothiazide 25 mg PO DAILY PRN 90 days insulin aspart (niacinamide) 100 unit/mL (3 mL) (Fiasp FlexTouch U-100 Insulin) 6 units with breakfast, 7 units with lunch and 8 units with dinner. subcut 3 times a day; 90 days insulin degludec (Tresiba FlexTouch U-100 insulin) 8 units (0.08 mL) subcut BEDTIME 90 days latanoprost 0.005% 1 drp ophthalmic (eye) DAILY [Siomara 2 glucose monitor As directed] [Siomara Freestyle glucose monitor As directed] lidocaine 4% (Aspercreme (lidocaine)) 1 patch topical DAILY PRN oxycodone 10 mg PO QID PRN pen needle, diabetic 4 times a day [Pro REnal +D As directed] [RENADRYL As directed] Tobacco use date assessed: 06/22/24 Fall risk assessment: No Falls in past year Last assessed Fall Risk: 10/20/24 Dental Screening Dental Screen Date: 06/22/24 HPI 3M Follow Up HPI Details BP today is high but patient did not take med today but knows to control with med [facility] Medical History (Updated 10/20/24 @ 12:20 by Nestor Almanza MD) CKD (chronic kidney disease) Frequent UTI Cardiomyopathy Cardiac pacemaker in situ Complete heart block DDD (degenerative disc disease), lumbar CAD (coronary artery disease) BPH (benign prostatic hyperplasia) Chronic kidney disease (CKD) stage G4/A2, severely decreased glomerular filtration rate (GFR) between 15-29 mL/min/1.73 square meter and albuminuria creatinine ratio between 30-299 mg/g Hypercholesterolemia Paroxysmal atrial fibrillation Hypertension 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 2 diabetes mellitus 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 Dyslipidemia CKD (chronic kidney disease) stage 4, GFR 15-29 ml/min Surgical History History of permanent cardiac pacemaker placement Hx of inguinal hernia surgery Family History Father Pancreatic cancer Mother Diabetes Alzheimers disease Social History Household Members: None Housing: House Alcohol intake: never Patient Tobacco Use Status: Never used Tobacco Tobacco use type: Cigarette e-Cigarette/Vaping Use: Never Used Second Hand Smoke Exposure: No service: No Current occupational status: retired Current occupational exposures/hazards: No Cognitive needs: Yes (walker ) Hearing needs: Yes (Hearing aide) Vision needs: Yes Questionnaire PHQ-9 Over the last 2 weeks, how often have you been bothered by any of the following problems? 1. Little interest or pleasure in doing things: not at all 2. Feeling down, depressed, or hopeless: not at all 3. Trouble falling or staying asleep, or sleeping too much: not at all 4. Feeling tired or having little energy: not at all 5. Poor appetite or overeating: not at all 6. Feeling bad about yourself - or that you are a failure or have let yourself or your family down: not at all 7. Trouble concentrating on things, such as reading the newspaper or watching television: not at all 8. Moving or speaking so slowly that other people could have noticed. Or the opposite - being so fidgety or restless that you have been moving around a lot more than usual: not at all 9. Thoughts that you would be better off or of hurting yourself in some way: not at all Total score: 0 Depression Screening Interpretation: Negative Depression Screening Done: Yes Source: Developed by Drs. Avery Sherman, EbonyShashi Mccormack and colleagues, with an educational ngoc from [employer]. Thrive Questionnaire Date Thrive assessed: 06/22/24 I am a: Patient What is your living situation today?: I have a steady place to live Within the past 12 months, did the food you bought not last and you didn't have the money to get more?: Never true Within the past 12 months, did you worry whether your food would run out before you got money to buy more?: Never true Do you have trouble paying for medicines?: No Do you have trouble getting transportation to medical appointments?: No Do you have trouble paying your heating and electricity bill?: No Do you have trouble taking care of your child, family member or friend?: No Do you have trouble with day-to-day activities such as bathing, preparing meals, shopping, managing finances, etc.?: No Are you currently unemployed and looking for a job?: No Are you interested in more education?: No Please select the resources that you would like help with: None Currently or been in a relationship where the following occur: No concerns reported THRIVE Score: 0 AUDIT C Alcohol Use Questionnaire (AUDIT-C) 1. How often do you have a drink containing alcohol?: Never Total Score: 0 CRISTIAN-7 AMB Questionnaire CRISTIAN-7 Date CRISTIAN - 7 assessed: 06/22/24 Feeling nervous, anxious, or on edge: 0 = Not at all Not being able to stop or control worryin = Not at all Worrying too much about different things: 0 = Not at all Trouble relaxin = Not at all Being so restless that it is hard to sit still: 0 = Not at all Becoming easily annoyed or irritable: 0 = Not at all Feeling afraid as if something awful might happen: 0 = Not at all Total CRISTIAN-7 score (0-4 normal; 5-9 mild; 10-14 moderate; 15-21 severe): 0 Source: Developed by Drs. Avery Sherman, Shashi Barnett and colleagues, with an educational ngoc from [employer]. Physical exam (Primary Care) Vital Signs: Last Vital Signs Pulse 90 10/20/24 11:45 BP 162/80 H 10/20/24 11:45 Pulse Ox 97 10/20/24 11:45 Oxygen Delivery Method Room Air 10/20/24 11:45 BMI result Body Mass Index 29.4 Tobacco/Smoking Status: Tobacco use Status Tobacco use date assessed 06/22/24 10/20/24 11:46 Patient Tobacco Use Status Never used Tobacco 10/20/24 11:46 Tobacco use type Cigarette 10/20/24 11:46 e-Cigarette/Vaping Use Never Used 10/20/24 11:46 PHQ-9: PHQ-9 Score PHQ-9: Total score 0 10/20/24 12:31 Depression Screening Interpretation: Negative Thrive Assessment: Date of Thrive Assessment Date Thrive assessed 06/22/24 10/20/24 11:46 Currently or been in a relationship where the following occur: No concerns reported Const General: alert; No acute distress Eyes Conjunctivae: conjunctivae normal Resp Auscultation: clear to auscultation bilaterally Cardio Rate: regular rate Rhythm: regular rhythm GI Inspection: Yes normal to inspection Extrem General: Yes normal to inspection and No edema Results AMB Hemoglobin A1c AMB Hemoglobin A1c 5.5 % Last Edit by Ning Encarnacion CMA on 10/20/24 12 :05 Immunizations Tenivac (PF) 5 Lf unit-2 Lf unit/0.5 mL intramuscular suspension Performing Provider: Nestor Almanza MD [facility] Administered by: Ning Encarnacion CMA on 10/20/24 12:31 Dose Route Admin Location Dispensed Lot Number Expiration Date NDC [employer] 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 0.5 mL IM Left Deltoid 0.5 mL [id number] 08/06/26 [id number] [employer] VIS Given Date VIS Provided VIS Publication Date 10/20/24 Single Vaccine 21 Eligibility Eligibility Date Funding Source Not [facility] Eligible 10/20/24 Private Results Reviewed Results Reviewed: Laboratory Last Values Hgb A1c (Clinic) 5.5 % (4.0-6.0) 10/20/24 11:47 Coding Level of Care Code Est Pt Level 4 (02318) Complex EM visit Add On G2211 Diagnoses Type 2 diabetes mellitus with hyperglycemia, without long-term current 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 E11.65 Diabetes mellitus intermediate insulin use: without intermediate use Cardiomyopathy, unspecified type I42.9 Cardiomyopathy type: unspecified Essential hypertension I10 Hypertension type: essential hypertension Coronary artery disease involving [place] coronary artery of [place] heart without angina pectoris I25.10 Associated angina: without angina Coronary Disease-Associated Artery/Lesion type: [place] artery [place] vs. 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 Hemoglobin A1c goal of less than 6.5. Patient has been very good with the diabetes. (2) Cardiomyopathy: Code(s): I42.9 - Cardiomyopathy, unspecified Category: Medical Qualifiers: Cardiomyopathy type: unspecified Qualified Code(s): I42.9 - Cardiomyopathy, unspecified Plan: Patient has been seeing Cardiology who has recommended echocardiogram but has been declined by the patient (3) Hypertension: Code(s): I10 - Essential (primary) hypertension Category: Medical Qualifiers: Hypertension type: essential hypertension Qualified Code(s): I10 - Essential (primary) hypertension Plan: Continue with blood pressure medication. Decrease salt intake and exercise on atenolol 25 mg once a day hydrochlorothiazide 25 mg as needed depending on blood pressure (4) CAD (coronary artery disease): Code(s): I25.10 - Atherosclerotic heart disease of [place] coronary artery without angina pectoris Category: Medical Qualifiers: Associated angina: without angina Coronary Disease-Associated Artery/Lesion type: [place] artery [place] vs. transplanted heart: [place] heart Qualified Code(s): I25.10 - Atherosclerotic heart disease of [place] coronary artery without angina pectoris Plan: Control the cholesterol, weight, blood pressure, diabetes patient not on aspirin (5) Chronic kidney disease (CKD) stage G4/A2, severely decreased glomerular filtration rate (GFR) between 15-29 mL/min/1.73 square meter and albuminuria creatinine ratio between 30-299 mg/g: Code(s): N18.4 - Chronic kidney disease, stage 4 (severe) Category: Medical Plan: Continue to follow-up with Nephrology avoid NSAIDs continue monitoring blood pressure keep diabetes under control (6) Hypercholesterolemia: Comment: decline cholesterol med (03/2022) Code(s): E78.00 - Pure hypercholesterolemia, unspecified Category: Medical Plan: Avoid fried foods, chicken skin, eggs, butter margarine, pastries and meat. Be it pork or beef they have a lot of cholesterol LDL goal of less than 100 but patient declined statins (7) DDD (degenerative disc disease), lumbar: Code(s): M51.36 - Other intervertebral disc degeneration, lumbar region Category: Medical Plan: Narcotic pain meds: Is being prescribed with the understanding that these medications are potentially addictive and should be used only when absolutely necessary and must always be secured. Any remaining pills should be safely disposed off appropriately. Patient is advised that narcotics can impaired judgment and one should not drive or operate heavy machinery while taking these medications. Never share these medications with anybody and do not leave them unattended. They will not be replaced under any circumstances. Plan History of Present Illness The patient is an 83-year-old male presenting for a follow-up visit regarding his chronic medical conditions. 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 He has a long history of lumbar degenerative disc disease, hypertension, and atrial fibrillation with associated cardiomyopathy. The patient is relying on a pacemaker due to complete heart block, with 100% pacing noted. He expressed his previous reluctance towards a dye-based diagnostic test but clarified his willingness to undergo an echocardiogram following a perceived misunderstanding. In terms of kidney health, the patient's renal function appears stable, with a noted creatinine improvement (currently at 2.48 mg/dL), and he has been adhering to dietary guidelines to manage his condition. Hypertension is generally under control, though there are occasional increases in blood pressure when he misses his medication. His LDL cholesterol is slightly higher than the desired threshold for diabetic patients. Regular pacemaker monitoring ensures adequate pacing, and he anticipates future battery replacement as recommended by his kettle operator head. The patient maintains effective diabetic control with an A1c level of 5.5%. The clinical evaluations reveal no significant issues with vision, and he continues using prescribed eye drops. The patient could further benefit from cholesterol management but has expressed a preference against statins. Hydration remains a priority, which he balances with his dietary intake. Health Maintenance - Encouraged adherence to a low sodium diet to manage chronic kidney disease. - Maintained blood glucose control with A1c at 5.5%. - Monthly reviews of pacemaker readouts to assess battery status. - Regular eye care follow-up with band leader; continues using prescribed eye drops. - Previous pneumonia vaccination in 2019, deemed sufficient per guidelines. - Tetanus vaccination administered due to being overdue since 2013. Social History - Regular ophthalmology visits in [place]. - Monthly reviews and communication regarding pacemaker. - Reports dietary management adherence including frequent water and moderate caffeine intake. Review of Systems - Cardiovascular: Denies chest pain and palpitations. - Respiratory: Denies shortness of breath. - Gastrointestinal: Regular bowel movements reported. - Neurologic: Denies new or worsening symptoms. - Ophthalmologic: Reports being under regular care; vision stable. Physical Exam - Vital Signs- Not explicitly detailed. - General Appearance- Not explicitly detailed. Results - Labs: A1c at 5.5%; Serum creatinine at 2.48 mg/dL; EGFR of 24. - Diagnostics: Monthly pacemaker strips are normal. Plan 1. 5%. Emphasis remains on a low sodium diet and avoiding NSAIDs due to stable chronic kidney disease evidenced by recent labs. Blood pressure medications will continue as they are maintaining adequate control, with attention to adherence to avoid occasional spikes. Cardiovascular oversight is recommended, with a focus on facilitating a follow-up echocardiogram to thoroughly evaluate the cardiomyopathy. Pacemaker monitoring persists; preparations for a timely battery replacement are in place given the patient's complete heart block and dependence on 100% pacing. Tetanus vaccination was administered to update overdue prophylactic needs, reassuring the patient on preventive care measures.: Patient was informed and verbally consented to the use of an ambient scribe for clinic note documentation during this visit. Discussion Notes I explained to the patient the need for continued monitoring of his blood pressure, renal function, and comprehensive management of his conditions as his overall health involves significant complexity requiring careful balance. We discussed the importance of hydration and adherence to dietary guidelines in managing his chronic kidney disease. The patient will facilitate a cardiology appointment for a follow-up echocardiogram as cardiomyopathy evaluation requires updated imaging. Shared decision-making about cholesterol management with titi lui was noted; patient currently prefers not to initiate statin therapy. Welcomed the patient's regular interaction with his film printer, kettle operator head, and band leader as he continues managing his complex profile. Clarified that his routine ophthalmology care and pacemaker checks reflect proactive health management, reassuring that his current therapeutic regimen is effective. Urged conscientious use of current medications to manage all aspects of his health effectively. Patient Instructions - Continue taking medications as prescribed, ensuring regular intake to avoid blood pressure fluctuations. - Follow low sodium diet recommendations to support kidney health. - Stay hydrated with plenty of water. - Schedule a follow-up echocardiogram with cardiology. - Visits for eye care and pacemaker checks must continue as per schedule. - Report any onset of symptoms like chest pain, palpitations, or breathing difficulties immediately. - Keep track of next potential interventions, including pacemaker battery timing. - Adhere to cautionary measures with recent tetanus vaccination noted. Orders: Orders 2 Td Immunization Today Z23 - Encounter for immunization AMB Hemoglobin A1c Today Z13.9 - Encounter for screening, unspecified Medications: Refilled oxycodone 10 mg PO QID PRN 100 tabs 0RF pain M51.36 - Other intervertebral disc degeneration, lumbar region
== END 2024-10-20 12:39 | disposition home or self-care (01) ==
LOC: HO.HMCH 11:43
PROVIDERS: PCP Internal Medicine; Visit Provider Internal Medicine
DX: I12.9 Hypertensive chronic kidney disease with stage 1 through stage 4 chronic kidney disease, or unspecified chronic kidney disease (principal); E11.65 Type 2 diabetes mellitus with hyperglycemia; I42.9 Cardiomyopathy, unspecified; N18.4 Chronic kidney disease, stage 4 (severe); I25.10 Atherosclerotic heart disease of native coronary artery without angina pectoris; E78.00 Pure hypercholesterolemia, unspecified; M51.369 Other intervertebral disc degeneration, lumbar region without mention of lumbar back pain or lower extremity pain; Z23 Encounter for immunization

== ENCOUNTER → 2024-10-20 11:42 | Outpatient (BNVA) | payer MEDICARE, SELFPAY | PROVIDERS: PCP Internal Medicine; Visit Provider Internal Medicine | DX: E11.65 Type 2 diabetes mellitus with hyperglycemia (principal); I42.9 Cardiomyopathy, unspecified; I25.10 Atherosclerotic heart disease of native coronary artery without angina pectoris; E11.22 Type 2 diabetes mellitus with diabetic chronic kidney disease; I12.9 Hypertensive chronic kidney disease with stage 1 through stage 4 chronic kidney disease, or unspecified chronic kidney disease; N18.4 Chronic kidney disease, stage 4 (severe); E78.00 Pure hypercholesterolemia, unspecified; M51.369 Other intervertebral disc degeneration, lumbar region without mention of lumbar back pain or lower extremity pain; I48.91 Unspecified atrial fibrillation; Z23 Encounter for immunization; Z79.4 Long term (current) 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; Z95.0 Presence of cardiac pacemaker | CPT/HCPCS: 83036; 90471; 90714; 96127; 99212 ==

== ENCOUNTER → 2024-11-23 13:39 | Outpatient (REF) | payer MEDICARE, SELFPAY ==
--- NOTE | 2024-11-23 13:43 | CA_ITS ---
Transthoracic Echocardiogram Patient (Last, First, Middle): Zacarias Blank J Gender: Male Date of : 1940 Age: 84 Procedure Date: 11/23/2024 Procedure Type: Transthoracic Echocardiogram Location: OP Height: 187.96 cm Weight: 101.15 kg BSA: 2.28 m2 Heart Rate: 59 bpm BP: 158 / 74 mmHg Pneumatic Tester: SB Referring MD: Dionisio Cardenas MD Client Manager: Dionisio Cardenas MD Symptoms: I42.9 - Cardiomyopathy, unspecified Study Quality: Fair ECG Rhythm: Paced Conclusions: - 1. Normal LV ejection fraction of 55-60% with mild LVH with impaired relaxation filling pattern 2. Mild aortic regurgitation 3. Normal RV systolic pressure 4. Mildly dilated ascending aorta at 3.8 cm 5. No pericardial effusion Findings Left Ventricle Normal left ventricular size and systolic function. There is mildly increased left ventricular wall thickness. The visually estimated ejection fraction is between 55-60%. There is paradoxical septal motion consistent with a right ventricular pacemaker. Spectral Doppler is indicative of an impaired relaxation filling pattern. E/E prime ratio is between 8 and 15 consistent with indeterminate filling pressures. Right Ventricle Normal right ventricular cavity size. There is a pacemaker wire seen in the right ventricle. Atria The left atrium is normal in size. Interatrial shunt cannot be excluded. The right atrium is normal in size. A pacemaker wire is identified in the right atrium. Aortic Valve The aortic valve was not well visualized. There is no aortic valve stenosis. There is mild aortic valve regurgitation. Mitral Valve There is mild anterior and posterior mitral leaflet thickening. There is trace mitral valve regurgitation. There is no mitral valve stenosis. Pulmonic Valve The pulmonic valve was not well visualized. Tricuspid Valve Likely normal tricuspid valve structure and function. There is mild tricuspid valve regurgitation. The right ventricular systolic pressure is normal. The right ventricular systolic pressure is 27 mmHg. Normal right atrial pressure. There is no evidence of pulmonary hypertension. Great Vessels The pulmonary artery was not well visualized. There is mild dilatation of the ascending aorta measuring 3.80 cm. Venous The inferior vena cava is normal in size. Pericardium/Pleural There is no evidence of pericardial effusion. Prior Study Comparison Changes noted compared to prior study dated: 04/02/2017. LV ejection fraction is within normal range Measurements 2D Linear Measurements IVSd: 1.46 0.6-0.9/0.6-1.0 cm LVIDd: 5.24 3.9-5.3/4.2-5.9 cm LVIDd Index: 2.30 2.4-3.2/2.2-3.1 cm/m2 LVIDs: 3.01 2.0-3.6 cm LVPWd: 1.23 0.7-1.1 cm LA Diam: 4.20 2.7-3.8/3.0-4.0 cm LAIDs Index: 1.84 1.5-2.3 cm/m2 LV Mass: 368.99 67-162/88-224 g LV Mass Index: 161.84 43-95/49-115 g/m2 LVOT Diam: 2.40 3.0+(-)1.3 cm 2D Systolic Function EF 4C: 56.30 >55% EF 2C: 56.90 >55% EF BiP: 55.60 >55% Mitral Valve MV Pk E: 0.56 MV PK A: 0.79 MV Decel Time: 283.00 E/A: 0.70 E'Lateral: 6.74 E'Medial: 3.48 E/E' Med: 16.10 E/E' Lat: 8.30 PHT: 83.00 MVA PHT: 2.65 Decel Elk: 1.98 Aortic Valve AoV Pk Eusebio: 1.22 AoV Pk Grad: 6.00 ALLAN: 3.09 LVOT LVOT Pk Eusebio: 0.80 LVOT Mn Eusebio: 0.58 LVOT VTI: 0.16 LVOT Pk Grad: 3.00 LVOT Mn Grad: 2.00 LVOT Diam: 2.40 LVOT Area: 4.52 Diastolic Function MV Pk E: 0.56 MV Pk A: 0.79 E/A: 0.70 E'Medial: 3.48 E/E' Med: 16.10 E' Laterial: 6.74 E/E' Lat: 8.30 Right Ventricle TAPSE (mm): 26.40 TVS' Eusebio: 10.00 Tricuspid Valve TR Pk Eusebio: 2.43 TR Pk Grad: 24.00 RA Press: 3.00 RVSP: 27.00 Great Vessels Aorta Sinus of Valsalva: 3.40 2.0-3.5 cm Ao Asc: 3.80 2.1-3.4 cm Pulmonary Valve PV Pk Eusebio: 1.13 Peak PV Grad: 5.00 Updated in Other Vendor System with Status of Final Dionisio Cardenas MD electronically signed on 11/23/2024 2:57:39 PM with status of Final
--- OUTSIDE RECORDS SUMMARY | 2024-11-23 15:39 | XMS_ITS | Patient Health Record ---
Author Organization [facility] Address [address] [place] [address] Care Team Providers Care Hydrographical Technical Officer Name Role Phone Nestor Almanza Primary Care Provider Armin Cruz Unavailable [phone] Allergies Allergen (clinical drug ingredient) Drug/Non Drug Allergy documented on EMR Reaction Allergy Type Onset Date Status valsartan Diovan itch Drug Allergy Active lisinopril Lisinopril Unknown Drug Allergy Activ e Reason For Referral No Information Medications Medication SIG (Take, Route, Frequency, Duration) Notes Start Date End Date Status Aspirin 81 mg Once a day Not-T aking Advil Not-Taking Atenolol 50 MG Orally Activ e Nitrofurantoin Activ e Latanoprost 0.005 % 1 drop into affected eye in the evening Ophthalmic Once a day Active Extra Depth Orthopedic Shoes (1 Pair) with Customized Heat Molded Multidensity Innersoles (3 Pair) as directed Dx: NIDDM/Polyneuropathy (E11.42), Hammertoe Foot Deformity (M20.41,M20.42), Preulcerative Skin Lesion(s) (L85.1 08/05/2018 Active Keflex 500 MG 1 capsule Orally xi ry 12 hrs for 30day(s) 07/07/2018 Not-Taking Glimepiride Active Bystolic 10 mg Once a day Not- Taking Keflex 500 MG 1 capsule Orally xi ry 12 hrs for 10 day(s) 09/10/2016 Not-Taking metFORMIN HCl 500 MG 1 tablet with meals Orally tid for 30 day(s) Not-Taking Immunizations Vaccine Route Administration Date Status Comme nts Influenza Unknown 08/13/2015 Administered Social History Tobacco Use: Social History Observation Description Date Details (start date - stop date) Never Smoker NA - NA Tobacco Use/Smoking Question Answer Notes Are you a: nonsmoker Additional Findings: Tobacco Non-User Current no n-smoker Alcohol Screen Question Answer Notes Did you have a drink containing alcohol in the p ast year? No Points 0 Interpretation Negative Tobacco use other than smoking: Question Answer Notes Are you an other tobacco user? No Problems Problem Type SNOMED Code ICD Code Onset Dates Problem Status W/U Status Risk Notes Problem Unspecified atherosclerosis of [place] arteries of extremities, bilateral legs (I70.203) Active confirmed Problem Acquired hammer toe of right foot (5010545285426 105) Other hammer toe(s) (acquired), right foot (M20.41) Active confirmed Problem Acquired hammer toe of left foot (2293994694883 103) Other hammer toe(s) (acquired), left foot (M20.42) Active confirmed Problem Neurologic disorder 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 II diabetes mellitus (061825814) Type 2 diabetes mellitus with other diabetic neurological complication (E11.49) Active confirmed Plan Of Treatment Pending Test Test Name Order Date X ray : Foot, left 3V 07/07/2018 81649-PASGRKZ NAIL, 1-5 03/13/2011 49835-KPZPYFE NAIL, 1-5 06/12/2011 92351-DGEVZES NAIL, 1-5 09/11/2011 77187-CUSJWPW NAIL, 1-5 12/08/2011 53396-BRXOTHC NAIL, 1-5 03/08/2012 09579-HLVIHSU NAIL, 1-5 09/08/2012 53115-DSPAKXN NAIL, 1-5 09/10/2016 60043-Pqswxfwo Plate 09/08/2012 82475-Dhzqmpla Plate 05/29/2015 09186-Mjlfkfjx Plate 03/13/2011 98567-Oloqtgtm Plate 08/08/2011 00254-VDME SKIN LESIONS, 2 TO 4 09/11/19 17 12898-LRZH SKIN LESIONS, 2 TO 4 11/05/19 19 24456-XFUV SKIN LESIONS, 2 TO 4 05/19/20 19 67325-DBAE NAIL(S) 09/10/2016 02901-KFQF NAIL(S) 09/08/2012 85022-NZYO NAIL(S) 12/08/2011 22354-GTED NAIL(S) 03/08/2012 27534-CNZO NAIL(S) 09/11/2011 78761-JYBR NAIL(S) 06/12/2011 61290-KGID NAIL(S) 03/13/2011 N9072-PKUGBIIJ DYSTROPHIC NAILS ANY # B1208-JDPLWSYP DYSTROPHIC NAILS ANY # Insurance Providers Payer Name Payer Address Payer Phone Subscriber Number Group Number Insured Name Patient Relationship to Insured Coverage Start Date Coverage End Date Medicare National Govt Svcs Inc [address] [facility] [place] [address] [id number] Zacarias Poole Self - patient is the insured [employer] [address] [place] [address] [id number] Zacarias Poole Self - patient is the insured Medical (General) History Medical History History ICD Code hypertension diabetic Pacemaker 2007 Kidney disease Surgical History Surgery Date(Month/Year) cardiac pacemaker 2007 tonsillectomy 1948
== END ==
LOC: HO.CARD 13:39
PROVIDERS: PCP Internal Medicine; Visit Provider Internal Medicine Cardiovascular Disease
DX: I42.9 Cardiomyopathy, unspecified (principal); I48.0 Paroxysmal atrial fibrillation; I25.10 Atherosclerotic heart disease of native coronary artery without angina pectoris
CPT/HCPCS: 93306

== ENCOUNTER → 2024-11-23 13:43 | Outpatient (BNV) | payer MEDICARE, SELFPAY | PROVIDERS: PCP Internal Medicine; Visit Provider Internal Medicine Cardiovascular Disease | DX: I35.1 Nonrheumatic aortic (valve) insufficiency (principal); Z95.0 Presence of cardiac pacemaker; I36.1 Nonrheumatic tricuspid (valve) insufficiency | CPT/HCPCS: 93306 ==

== ENCOUNTER → 2024-12-12 23:59 | Outpatient (BNV) | payer MEDICARE, SELFPAY ==
--- NOTE | 2024-12-19 13:35 | A.OFFVIS_ITS ---
Intake Visit Reasons: Remote device check- Medtronic Allergies valsartan (From DIOVAN) Allergy (Mild, Verified 10/20/24 11:46) ITCHING losartan Allergy (Unknown, Verified 10/20/24 11:46) itch lisinopril (LISINOPRIL) Adverse Reaction (Intermediate, Verified 10/20/24 11:46) LEG CRAMPS., leg cramps PFSH Medical History (Updated 10/20/24 @ 12:20 by Nestor Almanza MD) CKD (chronic kidney disease) Frequent UTI Cardiomyopathy Cardiac pacemaker in situ Complete heart block DDD (degenerative disc disease), lumbar CAD (coronary artery disease) BPH (benign prostatic hyperplasia) Chronic kidney disease (CKD) stage G4/A2, severely decreased glomerular filtrati on rate (GFR) between 15-29 mL/min/1.73 square meter and albuminuria creatinine ratio between 30-299 mg/g Hypercholesterolemia Paroxysmal atrial fibrillation Hypertension 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 2 diabetes mellitus [employer] (current) 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 Dyslipidemia CKD (chronic kidney disease) stage 4, GFR 15-29 ml/min Surgical History History of permanent cardiac pacemaker placement Hx of inguinal hernia surgery Family History Father Pancreatic cancer Mother Diabetes Alzheimers disease Social History Household Members: None Housing: House Alcohol intake: never Patient Tobacco Use Status: Never used Tobacco Tobacco use type: Cigarette e-Cigarette/Vaping Use: Never Used Second Hand Smoke Exposure: No service: No Current occupational status: retired Current occupational exposures/hazards: No Cognitive needs: Yes (walker ) Hearing needs: Yes (Hearing aide) Vision needs: Yes Office Procedures Cardiac Device Check Cardiac Device Check Details: Remote pacemaker report generated 12/12/2024. Pacemaker function is adequate 39389-Raugyc Cardiac Device Interrogation, pacemaker Procedure code (CPT) selection complete Assessment & Plan Assessment & Plan (1) Cardiac pacemaker in situ: Code(s): Z95.0 - Presence of cardiac pacemaker Category: Medical Plan: See above Coding Level of Care Code Procedure Only Diagnoses Cardiac pacemaker in situ Z95.0 CPT Codes Cardiac Device Check - Cardiac Device 12: 92847-Zpmwcw Cardiac Device Interrogation, pacemaker ([id number])
== END ==
PROVIDERS: PCP Internal Medicine; Visit Provider Internal Medicine Cardiovascular Disease
DX: Z45.018 Encounter for adjustment and management of other part of cardiac pacemaker (principal)
CPT/HCPCS: 93294

== ENCOUNTER 2024-12-29 14:29 | Outpatient (REF) | payer MEDICARE, SELFPAY ==
--- OUTSIDE RECORDS SUMMARY | 2024-12-29 14:38 | XMS_ITS | Patient Health Record ---
Author Organization [facility] Address [address] [place] [address] Care Team Providers Care Splash Line Operator Name Role Phone Nestor Almanza Primary Care Provider Armin Cruz Unavailable [phone] Allergies Allergen (clinical drug ingredient) Drug/Non Drug [...] MG 1 capsule Orally xi ry 12 hrs; Duration: 30day(s) 07/07/2018 Not-Taking Glimepiride Active Bystolic 10 mg Once a day Not- Taking Keflex 500 MG 1 capsule Orally xi ry 12 hrs; Duration: 10 day(s) 09/10/2016 Not-Taking metFORMIN HCl 500 MG 1 tablet with meals Orally tid; Duration: 30 day(s) Not-Taking Immunizations Vaccine Route Administration [...] Problem Status W/U Status Risk Notes Problem Bilateral atherosclerosis of arteries of lower limbs (disorder) (17990149060240814 ) Unspecified atherosclerosis of [place] arteries of extremities, bilateral legs (I70.203) Active confirmed Problem Acquired hammer toe of right foot (6856004662041683) Other hammer toe(s) (acquired), right foot (M20.41) Active confirmed Problem Acquired hammer toe of left foot (6908330656769687) Other hammer toe(s) (acquired), left foot (M20.42) Active confirmed Problem Type 2 diabetes mellitus with other diabetic neurological complication (E11.49) Active confirmed Plan Of Treatment Pending Test Test Name Order Date X ray : Foot, left 3V 07/07/2018 64324-VWZCCEW NAIL, 1-5 03/13/2011 36433-FYQDQDP NAIL, 1-5 06/12/2011 83098-YRVRXIT NAIL, 1-5 09/11/2011 35560-ELCYAEH NAIL, 1-5 12/08/2011 37001-VIPGFRG NAIL, 1-5 03/08/2012 93127-YARCGVB NAIL, 1-5 09/08/2012 91467-DUIMMSO NAIL, 1-5 09/10/2016 64722-Qrtikgtp Plate 09/08/2012 65881-Ehleruwl Plate 05/29/2015 52035-Momdqutq Plate 03/13/2011 70806-Jtvpdcst Plate 08/08/2011 47909-OQYP SKIN LESIONS, 2 TO 4 09/11/19 17 11806-NHIT SKIN LESIONS, 2 TO 4 11/05/19 19 20912-FSKI SKIN LESIONS, 2 TO 4 05/19/20 19 52629-VYRZ NAIL(S) 09/10/2016 42254-CMHE NAIL(S) 09/08/2012 87139-RJOJ NAIL(S) 12/08/2011 29839-NBOF NAIL(S) 03/08/2012 61404-HOVY NAIL(S) 09/11/2011 38705-MHAX NAIL(S) 06/12/2011 58359-YFWD NAIL(S) 03/13/2011 A4789-YXQRQNZH DYSTROPHIC NAILS ANY # E1343-SUKQWNUC DYSTROPHIC NAILS ANY # Insurance Providers Payer Name Payer Address Payer Phone Subscriber Number Group Number Insured Name Patient Relationship to Insured Coverage Start Date Coverage End Date Medicare National Govt Svcs Inc [address] [place] [address] [id number] Zacarias Poole Self - patient is the insured [employer] [address] [place] [address] [id number] Zacarias Poole Self - patient is the insured Medical (General) History Medical History History ICD Code hypertension diabetic Pacemaker 2008 Kidney disease Surgical History Surgery Date(Month/Year) cardiac pacemaker 2008 tonsillectomy 1948
[2024-12-29 16:38] LABS: Anion Gap 12 (12-20); Blood Urea Nitrogen 26 mg/dL (9-16); Calcium 9.6 mg/dL (8.4-10.2); Carbon Dioxide 27 mmol/L (22-29); Chloride 107 mmol/L (96-108); Estimated Glomerular Filt Rate 25; Potassium 4.3 mmol/L (3.3-5.1); Sodium 142 mmol/L (135-145)
== END 2024-12-29 14:30 | disposition home or self-care (01) ==
LOC: HO.HMGCLDS 14:29
PROVIDERS: PCP Internal Medicine; Visit Provider Internal Medicine Hypertension Specialist
DX: N18.9 Chronic kidney disease, unspecified (principal)
CPT/HCPCS: 36415; 80048

== ENCOUNTER 2025-01-03 11:10 | Outpatient (AMB) | payer MEDICARE, SELFPAY ==
[2025-01-03 11:22] VITALS: BP 142/74; PULSE 62; O2SAT 98; BMI 29.4
--- NOTE | 2025-01-03 11:22 | HO.NEPHOV ---
Vital Signs 01/03/25 11:22 Height 6 ft 1 in Weight 223 lb BMI 29.4 BP 142/74 H Blood Pressure Location Lt brachial Position Sitting Pulse 62 Pulse Source Pulse Oximeter Pulse Oximetry (%) 98 Oxygen Delivery Method Room Air Intake Visit Reasons: FU Sql Data Analyst Required: No Accompanied by: Self / Same As Patient Allergies valsartan (From DIOVAN) Allergy (Mild, Verified 01/03/25 11:24) ITCHING losartan Allergy (Unknown, Verified 01/03/25 11:24) itch lisinopril (LISINOPRIL) Adverse Reaction (Intermediate, Verified 01/03/25 11:24) LEG CRAMPS., leg cramps Medication List - Last Reconciled 01/03/25 by Asif Domínguez MD atenolol 25 mg PO DAILY blood sugar diagnostic 1 strip miscellaneous QID 30 days blood-glucose sensor (FreeStyle Siomara 2 Plus Sensor device) As directed hydrochlorothiazide 25 mg PO DAILY PRN 90 days insulin aspart (niacinamide) 100 unit/mL (3 mL) (Fiasp FlexTouch U-100 Insulin) 6 units with breakfast, 7 units with lunch and 8 units with dinner. subcut 3 times a day; 90 days insulin degludec (Tresiba FlexTouch U-100 insulin) 8 units (0.08 mL) subcut BEDTIME 90 days latanoprost 0.005% 1 drp ophthalmic (eye) DAILY [Siomara 2 glucose monitor As directed] [Siomara Freestyle glucose monitor As directed] lidocaine 4% (Aspercreme (lidocaine)) 1 patch topical DAILY PRN oxycodone 10 mg PO QID PRN pen needle, diabetic 4 times a day [Pro REnal +D As directed] [RENADRYL As directed] HPI Comments Details: 82-year-old male with diabetes mellitus coronary artery disease atrial fibrillation hypercholesterolemia chronic kidney disease hypertension lumbar degenerative disc disease on narcotic pain medication Referred for CKD He was previously seen by Dr. Franklin but he has decided to switch his provider Baseline serum creatinine is around 2.2 mg/dL All the labs for the last 3 years was reviewed and serum creatinine has been between 2.0 and 2.4 mg/dL. No significant proteinuria based on the recent urine protein creatinine ratio Urine sediments were benign History of hypertension. BP has been high in the office but home blood pressure readings are excellent Blood sugar has been well controlled with a recent A1c of 5.3% Two years ago ultrasound showed normal-appearing kidneys without hydronephrosis and there was slightly elevated postvoid residual. He denies any urinary complaints like urgency increased frequency or hesitancy. No significant edema. No shortness of breath no chest. No nausea or vomiting. He is complaining of fatigue. He is retired. He lives alone. No history of any significant smoking alcohol abuse 02/05/24 Feels tired; NO dyspnea 05/03/24: Feels about the same.Frequent UTIs - seen by 08/30/24 No new issues ;Home BP 105/60 ;Gout in feet 01/03/25 Overall doing ok ; Feels tired. No dyspnea PFSH Medical History (Updated 10/20/24 @ 12:20 by Nestor Almanza MD) CKD (chronic kidney disease) Frequent UTI Cardiomyopathy Cardiac pacemaker in situ Complete heart block DDD (degenerative disc disease), lumbar CAD (coronary artery disease) BPH (benign prostatic hyperplasia) Chronic kidney disease (CKD) stage G4/A2, severely decreased glomerular filtration rate (GFR) between 15-29 mL/min/1.73 square meter and albuminuria creatinine ratio between 30-299 mg/g Hypercholesterolemia Paroxysmal atrial fibrillation Hypertension 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 2 diabetes mellitus [facility] (current) 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 Dyslipidemia CKD (chronic kidney disease) stage 4, GFR 15-29 ml/min Surgical History History of permanent cardiac pacemaker placement Hx of inguinal hernia surgery Family History Father Pancreatic cancer Mother Diabetes Alzheimers disease Social History Household Members: None Housing: House Alcohol intake: never Patient Tobacco Use Status: Never used Tobacco Tobacco use type: Cigarette e-Cigarette/Vaping Use: Never Used Second Hand Smoke Exposure: No service: No Current occupational status: retired Current occupational exposures/hazards: No Cognitive needs: Yes (walker ) Hearing needs: Yes (Hearing aide) Vision needs: Yes Physical Exam Vital Signs: Last Vital Signs Pulse 62 01/03/25 11:22 BP 142/74 H 01/03/25 11:22 Pulse Ox 98 01/03/25 11:22 Oxygen Delivery Method Room Air 01/03/25 11:22 BMI result Body Mass Index 29.4 Const General: comfortable Nutritional Appearance: well nourished Orientation/consciousness: patient oriented x3 HEENT Head: No normal to inspection Mouth: moist mucous membranes Neck Neck: Yes supple and Yes no JVD Resp Auscultation: clear to auscultation bilaterally, no rales and rub present Cardio Jugular venous distension: no JVD Palpation: no palpable S3 and no palpable S4 Heart sounds: no rubs GI Palpation (GI): Soft to palpation and nontender Percussion: No Fluid wave present General: Yes no CVA tenderness Back/Spine/Pelvis Back: no CVA tenderness Skin General skin exam: no rashes or lesions noted Neuro General: patient oriented x3 Extrem General: Yes no pedal edema and No clubbing Results Reviewed Nephrology Results: Hgb, (14.0-18.0) 13.1 g/dl L 08/26/24 WBC, (4.8-10.8) 5.4 X10*3/uL 08/26/24 Plt Count, (160-400) 137 X10*3/uL L 08/26/24 Sodium, (135-145) 142 mmol/L 12/29/24 Potassium, (3.3-5.1) 4.3 mmol/L 12/29/24 Chloride, (96-108) 107 mmol/L 12/29/24 Carbon Dioxide, (22-29) 27 mmol/L 12/29/24 BUN, (9-16) 26 mg/dL H 12/29/24 Creatinine, (0.5-1.4) 2.48 mg/dL H 12/29/24 Calcium, (8.4-10.2) 9.6 mg/dL 12/29/24 Renal US 11/06/23 Assessment & Plan Assessment & Plan (1) CKD (chronic kidney disease): Code(s): N18.9 - Chronic kidney disease, unspecified Category: Medical (2) CKD (chronic kidney disease) stage 4, GFR 15-29 ml/min: Code(s): N18.4 - Chronic kidney disease, stage 4 (severe) Category: Medical Plan 84-year-old man with a history of longstanding hypertension diabetes mellitus with stable chronic kidney disease. 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 He has no significant proteinuria. Over the last 3 years renal function has been relatively stable. Recent Creatinine 2.4 ( down from 2.7) and eGFR is about 24 ml/mt Can use HCTZ PRN No obstructive uropathy based on sonogram Hypertension Blood pressure is well controlled at this time based on home readings. Diabetes mellitus Blood sugar seems well controlled Mild anemia Recent hemoglobin stable Plan Follow renal panel Mild secondary Hyperparathyroidism- intact PTH mildly elevated Continue monitoring blood pressure at home. Stay on low-sodium diet Continue to avoid nephrotoxic agents including NSAIDs. Follow renal function closely Orders: Orders Basic Metabolic Panel 4 Months N18.4 - Chronic kidney disease, stage 4 (severe) Parathyroid Hormone Intact 4 Months N18.4 - Chronic kidney disease, stage 4 (severe) Phosphorus 4 Months N18.4 - Chronic kidney disease, stage 4 (severe) Coding Level of Care Code Est Pt Level 4 (80652) Diagnoses CKD (chronic kidney disease) N18.9 CKD (chronic kidney disease) stage 4, GFR 15-29 ml/min N18.4
--- OUTSIDE RECORDS SUMMARY | 2025-01-03 12:26 | XMS_ITS | Patient Health Record ---
Author Organization [facility] Address [address] [place] [address] Care Team Providers Care Is Project Manager Name Role Phone Nestor Almanza Primary Care Provider Armin Cruz Unavailable [phone] Allergies Allergen (clinical drug ingredient) Drug/Non Drug [...] atherosclerosis of arteries of lower limbs (disorder) (20775569551935740 ) Unspecified atherosclerosis of [place] arteries of extremities, bilateral legs (I70.203) Active confirmed Problem Acquired hammer toe of right foot (6663312581754273) Other hammer toe(s) (acquired), right foot (M20.41) Active confirmed Problem Acquired hammer toe of left foot (3288014543594129) Other hammer toe(s) (acquired), left foot (M20.42) Active confirmed Problem Type 2 diabetes mellitus with other diabetic neurological complication (E11.49) Active confirmed Plan Of Treatment Pending Test Test Name Order Date X ray : Foot, left 3V 07/07/2018 11216-KJVVDUV NAIL, 1-5 03/13/2011 85608-SBMHQHM NAIL, 1-5 06/12/2011 56295-MSVWMNZ NAIL, 1-5 09/11/2011 77699-TXEDPYS NAIL, 1-5 12/08/2011 77624-FJRZUHQ NAIL, 1-5 03/08/2012 11983-GLFRUPT NAIL, 1-5 09/08/2012 21413-VKWARNN NAIL, 1-5 09/10/2016 77328-Tbgjlwry Plate 09/08/2012 54018-Yosatjrv Plate 05/29/2015 26009-Nytaqhzc Plate 03/13/2011 15188-Omrygxzp Plate 08/08/2011 65691-GKNW SKIN LESIONS, 2 TO 4 09/11/19 17 09239-EDSB SKIN LESIONS, 2 TO 4 11/05/19 19 47675-BZQI SKIN LESIONS, 2 TO 4 05/19/20 19 91940-OIKC NAIL(S) 09/10/2016 39699-YUTW NAIL(S) 09/08/2012 14125-MPSC NAIL(S) 12/08/2011 23845-XJEG NAIL(S) 03/08/2012 33082-PQSZ NAIL(S) 09/11/2011 14674-YQYO NAIL(S) 06/12/2011 62967-FKMB NAIL(S) 03/13/2011 J8739-QBZJMCYV DYSTROPHIC NAILS ANY # V8546-FVUNBYSV DYSTROPHIC NAILS ANY # Insurance Providers Payer Name Payer Address Payer Phone Subscriber Number Group Number Insured Name Patient Relationship to Insured Coverage Start Date Coverage End Date Medicare National Govt Svcs Inc [address] [place] [address] [id number] Zacarias Poole Self - patient is the insured [employer] [address] [place] [address] [id number] Zacarias Poole Self - patient is the insured Medical (General) History Medical History History ICD Code hypertension diabetic Pacemaker 2008 Kidney disease Surgical History Surgery Date(Month/Year) cardiac pacemaker 2008 tonsillectomy 1948
== END 2025-01-03 11:35 | disposition home or self-care (01) ==
LOC: HO.HKA 11:11
PROVIDERS: PCP Internal Medicine; Visit Provider Internal Medicine Hypertension Specialist
DX: N18.9 Chronic kidney disease, unspecified (principal); N18.4 Chronic kidney disease, stage 4 (severe)
CPT/HCPCS: 99214

== ENCOUNTER → 2025-01-03 11:10 | Outpatient (BNVA) | payer MEDICARE, SELFPAY | PROVIDERS: PCP Internal Medicine; Visit Provider Internal Medicine Hypertension Specialist | DX: N18.4 Chronic kidney disease, stage 4 (severe) (principal); I10 Essential (primary) hypertension; E11.9 Type 2 diabetes mellitus without complications | CPT/HCPCS: 99212 ==

== ENCOUNTER → 2025-01-12 23:59 | Outpatient (BNV) | payer MEDICARE, SELFPAY ==
--- NOTE | 2025-01-17 09:28 | A.OFFVIS_ITS ---
Intake Visit Reasons: Remote device check- Medtronic Allergies valsartan (From DIOVAN) Allergy (Mild, Verified 01/03/25 11:24) ITCHING losartan Allergy (Unknown, Verified 01/03/25 11:24) itch lisinopril (LISINOPRIL) Adverse Reaction (Intermediate, Verified 01/03/25 11:24) LEG CRAMPS., leg cramps PFSH Medical History (Updated 10/20/24 @ 12:20 by Nestor Almanza MD) CKD (chronic kidney disease) Frequent UTI Cardiomyopathy Cardiac pacemaker in situ Complete heart block DDD (degenerative disc disease), lumbar CAD (coronary artery disease) BPH (benign prostatic hyperplasia) Chronic kidney disease (CKD) stage G4/A2, severely decreased glomerular filtrati on rate (GFR) between 15-29 mL/min/1.73 square meter and albuminuria creatinine ratio between 30-299 mg/g Hypercholesterolemia Paroxysmal atrial fibrillation Hypertension 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 2 diabetes mellitus 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 Dyslipidemia CKD (chronic kidney disease) stage 4, GFR 15-29 ml/min Surgical History History of permanent cardiac pacemaker placement Hx of inguinal hernia surgery Family History Father Pancreatic cancer Mother Diabetes Alzheimers disease Social History Household Members: None Housing: House Alcohol intake: never Patient Tobacco Use Status: Never used Tobacco Tobacco use type: Cigarette e-Cigarette/Vaping Use: Never Used Second Hand Smoke Exposure: No service: No Current occupational status: retired Current occupational exposures/hazards: No Cognitive needs: Yes (walker ) Hearing needs: Yes (Hearing aide) Vision needs: Yes Office Procedures Cardiac Device Check Cardiac Device Check Details: Remote pacemaker report generated 01/12/2025. Pacemaker function is adequate. Battery life is at about 7 months. 22119-Hwnrlc Cardiac Device Interrogation, pacemaker Procedure code (CPT) selection complete Assessment & Plan Assessment & Plan (1) Cardiac pacemaker in situ: Code(s): Z95.0 - Presence of cardiac pacemaker Category: Medical Plan: See above Coding Level of Care Code Procedure Only Diagnoses Cardiac pacemaker in situ Z95.0 CPT Codes Cardiac Device Check - Cardiac Device 12: 10412-Ohjrim Cardiac Device Interrogation, pacemaker ([id number])
== END ==
PROVIDERS: PCP Internal Medicine; Visit Provider Internal Medicine Cardiovascular Disease
DX: Z45.010 Encounter for checking and testing of cardiac pacemaker pulse generator [battery] (principal)
CPT/HCPCS: 93294

== ENCOUNTER 2025-01-20 12:44 | Outpatient (AMB) | payer MEDICARE, SELFPAY ==
--- OUTSIDE RECORDS SUMMARY | 2025-01-20 12:47 | XMS_ITS | Patient Health Record ---
Author Organization [facility] Address [address] [place] [address] Care Team Providers Care Gang Knife Fish Chopper Name Role Phone Nestor Almanza Primary Care Provider Armin Cruz Unavailable [phone] Allergies Allergen (clinical drug ingredient) Drug/Non Drug [...] atherosclerosis of arteries of lower limbs (disorder) (27773668640849174 ) Unspecified atherosclerosis of [place] arteries of extremities, bilateral legs (I70.203) Active confirmed Problem Acquired hammer toe of right foot (8172797352017030) Other hammer toe(s) (acquired), right foot (M20.41) Active confirmed Problem Acquired hammer toe of left foot (4702072092847632) Other hammer toe(s) (acquired), left foot (M20.42) Active confirmed Problem Neurologic disorder 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 II diabetes mellitus (775277620) Type 2 diabetes mellitus with other diabetic neurological complication (E11.49) Active confirmed Plan Of Treatment Pending Test Test Name Order Date X ray : Foot, left 3V 07/07/2018 39112-BNIBTGV NAIL, 1-5 03/13/2011 73087-MFTXBFL NAIL, -06/12/2011 64105-TCASFNF NAIL, -09/11/2011 99014-TXHJNYQ NAIL, 1-12/08/2011 63719-JCXGQKY NAIL, -5 03/08/2012 68534-JIFBCYM NAIL, -09/08/2012 32128-HBQIAXI NAIL, 1-09/10/2016 59074-Acrpszdt Plate 09/08/2012 59998-Nteeojeu Plate 05/29/2015 19593-Pwzxadmf Plate 03/13/2011 34642-Kxmetdkq Plate 08/08/2011 15895-JQSA SKIN LESIONS, 2 TO 4 09/11/19 17 66922-FXBN SKIN LESIONS, 2 TO 4 11/05/19 19 63613-TCAB SKIN LESIONS, 2 TO 4 05/19/20 19 15307-JIDZ NAIL(S) 09/10/2016 97776-XMFD NAIL(S) 09/08/2012 77462-DBXE NAIL(S) 12/08/2011 24794-TNOD NAIL(S) 03/08/2012 25290-GYNT NAIL(S) 09/11/2011 06731-KTFW NAIL(S) 06/12/2011 39287-KUFO NAIL(S) 03/13/2011 Z9419-EPYCDUSI DYSTROPHIC NAILS ANY # P5638-YSXKSLZK DYSTROPHIC NAILS ANY # Insurance Providers Payer Name Payer Address Payer Phone Subscriber Number Group Number Insured Name Patient Relationship to Insured Coverage Start Date Coverage End Date Medicare National Govt Svcs Inc [address] [facility] [address] [id number] Zacarias Poole Self - patient is the insured [employer] [address] [place] [address] [id number] Zacarias Poole Self - patient is the insured Medical (General) History Medical History History ICD Code hypertension diabetic Pacemaker 2008 Kidney disease Surgical History Surgery Date(Month/Year) cardiac pacemaker 2008 tonsillectomy 1948
--- NOTE | 2025-01-20 12:49 | MHC.PC.OV ---
Vital Signs 01/20/25 12:51 Height 6 ft 1 in Weight 219 lb 2 oz BMI 28.9 BP 120/72 Blood Pressure Location Lt brachial Position Sitting Pulse 64 Pulse Source Pulse Oximeter Temp 97.1 F Temp Source Temporal Artery Scan Pulse Oximetry (%) 98 Oxygen Delivery Method Room Air Intake Visit Reasons: 3M Follow Up Intake Note: Patient is here to follow up on DM, HTN, DDD, PAfib. 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 per policy Accompanied by: Self / Same As Patient Allergies valsartan (From [place]) Allergy (Mild, Verified 01/20/25 12:50) ITCHING losartan Allergy (Unknown, Verified 01/20/25 12:50) itch lisinopril (LISINOPRIL) Adverse Reaction (Intermediate, Verified 01/20/25 12:50) LEG CRAMPS., leg cramps Medication List - Last Reconciled 01/20/25 by Nestor Almanza MD atenolol 25 mg PO DAILY blood sugar diagnostic 1 strip miscellaneous QID 30 days blood-glucose sensor (FreeStyle Siomara 2 Plus Sensor device) As directed hydrochlorothiazide 25 mg PO DAILY PRN 90 days insulin aspart (niacinamide) 100 unit/mL (3 mL) (Fiasp FlexTouch U-100 Insulin) 6 units with breakfast, 7 units with lunch and 8 units with dinner. subcut 3 times a day; 90 days insulin degludec (Tresiba FlexTouch U-100 insulin) 8 units (0.08 mL) subcut BEDTIME 90 days latanoprost 0.005% 1 drp ophthalmic (eye) DAILY [Siomara 2 glucose monitor As directed] [Siomara Freestyle glucose monitor As directed] lidocaine 4% (Aspercreme (lidocaine)) 1 patch topical DAILY PRN oxycodone 10 mg PO QID PRN pen needle, diabetic 4 times a day [Pro REnal +D As directed] [RENADRYL As directed] Tobacco use date assessed: 01/20/25 Fall risk assessment: No Falls in past year Last assessed Fall Risk: 01/20/25 Dental Screening Dental Screen Date: 06/22/24 [facility] Medical History (Updated 10/20/24 @ 12:20 by Nestor Almanza MD) CKD (chronic kidney disease) Frequent UTI Cardiomyopathy Cardiac pacemaker in situ Complete heart block DDD (degenerative disc disease), lumbar CAD (coronary artery disease) BPH (benign prostatic hyperplasia) Chronic kidney disease (CKD) stage G4/A2, severely decreased glomerular filtration rate (GFR) between 15-29 mL/min/1.73 square meter and albuminuria creatinine ratio between 30-299 mg/g Hypercholesterolemia Paroxysmal atrial fibrillation Hypertension 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 2 diabetes mellitus 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 Dyslipidemia CKD (chronic kidney disease) stage 4, GFR 15-29 ml/min Surgical History History of permanent cardiac pacemaker placement Hx of inguinal hernia surgery Family History Father Pancreatic cancer Mother Diabetes Alzheimers disease Social History Household Members: None Housing: House Alcohol intake: never Patient Tobacco Use Status: Never used Tobacco Tobacco use type: Cigarette e-Cigarette/Vaping Use: Never Used Second Hand Smoke Exposure: No service: No Current occupational status: retired Current occupational exposures/hazards: No Cognitive needs: Yes (walker ) Hearing needs: Yes (Hearing aide) Vision needs: Yes Questionnaire Thrive Questionnaire Date Thrive assessed: 10/20/24 I am a: Patient What is your living situation today?: I have a steady place to live Within the past 12 months, did the food you bought not last and you didn't have the money to get more?: Never true Within the past 12 months, did you worry whether your food would run out before you got money to buy more?: Never true Do you have trouble paying for medicines?: No Do you have trouble getting transportation to medical appointments?: No Do you have trouble paying your heating and electricity bill?: No Do you have trouble taking care of your child, family member or friend?: No Do you have trouble with day-to-day activities such as bathing, preparing meals, shopping, managing finances, etc.?: No Are you currently unemployed and looking for a job?: No Are you interested in more education?: No Please select the resources that you would like help with: None Currently or been in a relationship where the following occur: No concerns reported THRIVE Score: 0 CRISTIAN-7 AMB Questionnaire CRISTIAN-7 Date CRISTIAN - 7 assessed: 06/22/24 Source: Developed by Drs. Avery Sherman, Ebony Callahan, Shashi Goff and colleagues, with an educational ngoc from [employer]. Physical exam (Primary Care) Vital Signs: Last Vital Signs Temp 97.1 F 01/20/25 12:51 Pulse 64 01/20/25 12:51 BP 120/72 01/20/25 12:51 Pulse Ox 98 01/20/25 12:51 Oxygen Delivery Method Room Air 01/20/25 12:51 BMI result Body Mass Index 28.9 Tobacco/Smoking Status: Tobacco use Status Tobacco use date assessed 01/20/25 01/20/25 12:58 Patient Tobacco Use Status Never used Tobacco 01/20/25 12:58 Tobacco use type Cigarette 01/20/25 12:58 e-Cigarette/Vaping Use Never Used 01/20/25 12:58 Thrive Assessment: Date of Thrive Assessment Date Thrive assessed 10/20/24 01/20/25 12:58 Currently or been in a relationship where the following occur: No concerns reported Const General: alert; No acute distress Eyes Conjunctivae: conjunctivae normal Resp Auscultation: clear to auscultation bilaterally Cardio Rate: regular rate Rhythm: regular rhythm GI Inspection: Yes normal to inspection Extrem General: Yes normal to inspection and No edema Results AMB Hemoglobin A1c AMB Hemoglobin A1c 6.4 % Last Edit by MILAGRO William on 01/20/25 13:03 Results Reviewed Results Reviewed: Laboratory Last Values Hgb A1c (Clinic) 6.4 % (4.0-6.0) H 01/20/25 12:49 Coding Level of Care Code Est Pt Level 4 (77618) Complex EM visit Add On G2211 Diagnoses Coronary artery disease involving [place] coronary artery of [place] heart without angina pectoris I25.10 Associated angina: without angina Coronary Disease-Associated Artery/Lesion type: [place] artery [place] vs. transplanted heart: [place] heart Paroxysmal atrial fibrillation I48.0 Hypercholesterolemia E78.00 Cardiac pacemaker in situ Z95.0 Essential hypertension I10 Hypertension type: essential hypertension Type 2 diabetes mellitus with hyperglycemia, without long-term current 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 E11.65 Diabetes mellitus half-way insulin use: without half-way use CKD (chronic kidney disease) stage 4, GFR 15-29 ml/min N18.4 DDD (degenerative disc disease), lumbar M51.36 Assessment & Plan Assessment & Plan (1) CAD (coronary artery disease): Code(s): I25.10 - Atherosclerotic heart disease of [place] coronary artery without angina pectoris Category: Medical Qualifiers: Associated angina: without angina Coronary Disease-Associated Artery/Lesion type: [place] artery [place] vs. transplanted heart: [place] heart Qualified Code(s): I25.10 - Atherosclerotic heart disease of [place] coronary artery without angina pectoris Plan: Control the cholesterol, weight, blood pressure, diabetes . (2) Paroxysmal atrial fibrillation: Comment: 05/2020 cardiology notes on anticoagulation- decline by patient Code(s): I48.0 - Paroxysmal atrial fibrillation Category: Medical Plan: Continue to monitor (3) Hypercholesterolemia: Comment: decline cholesterol med (03/2022) Code(s): E78.00 - Pure hypercholesterolemia, unspecified Category: Medical Plan: Avoid fried foods, chicken skin, eggs, butter margarine, pastries and meat. Be it pork or beef they have a lot of cholesterol patient has declined cholesterol medication (4) Cardiac pacemaker in situ: Code(s): Z95.0 - Presence of cardiac pacemaker Category: Medical Plan: Continue to follow up with Cardiology doing device checks (5) Hypertension: Code(s): I10 - Essential (primary) hypertension Category: Medical Qualifiers: Hypertension type: essential hypertension Qualified Code(s): I10 - Essential (primary) hypertension Plan: Continue with blood pressure medication. Decrease salt intake and exercise on atenolol 25 mg once a day hydrochlorothiazide 25 mg once a day (6) Type 2 diabetes mellitus with hyperglycemia: Comment: REferred to Jose Luis Turcios- 07/2024 Code(s): E11.65 - Type 2 diabetes mellitus with hyperglycemia Category: Medical Qualifiers: Diabetes mellitus superintendent container terminal insulin use: without superintendent container terminal use Qualified Code(s): E11.65 - Type 2 diabetes mellitus with hyperglycemia Plan: Decrease the amount of carbohydrate intake, pasta, bread, rice and potatoes are all sugar and that is aside from all the sweet stuff, remember that fruits are good but they are Sweet also. Patient is on insulin Tresiba and VS (7) CKD (chronic kidney disease) stage 4, GFR 15-29 ml/min: Code(s): N18.4 - Chronic kidney disease, stage 4 (severe) Category: Medical Plan: Continue to monitor as for nephrology patient follows up with Nephrology regularly (8) DDD (degenerative disc disease), lumbar: Code(s): M51.36 - Other intervertebral disc degeneration, lumbar region Category: Medical Plan: Narcotic pain meds: Is being prescribed with the understanding that these medications are potentially addictive and should be used only when absolutely necessary and must always be secured. Any remaining pills should be safely disposed off appropriately. Patient is advised that narcotics can impaired judgment and one should not drive or operate heavy machinery while taking these medications. Never share these medications with anybody and do not leave them unattended. They will not be replaced under any circumstances. Plan History of Present Illness The patient is an 84-year-old male presenting for a follow-up visit to manage multiple chronic conditions. He has a history of chronic kidney disease stage 4, diabetes mellitus, hypercholesterolemia, coronary artery disease, hypertension, atrial fibrillation, and cardiomyopathy. The patient reports profound weight loss since January 03, 2025, and has been managing his chronic kidney disease with stable creatinine levels. He regularly follows up with nephrology and cardiology for his conditions, including device checks for his pacemaker. His diabetes is managed with insulin, and his hemoglobin A1c is currently 6.4, slightly elevated from a previous value of 5.5. He experiences slow healing of wounds, attributed to his diabetes, but circulation in his feet is good. The patient has lumbar degenerative disc disease and is on narcotic pain medication, specifically Oxycontin 10 mg. He reports peripheral neuropathy symptoms in his hands but not in his feet. Preventative care measures include a recent shingles vaccination, and he is advised to continue monitoring his cholesterol levels, although he has declined cholesterol medication. Health Maintenance - Shingles vaccination completed recently - Monitoring of cholesterol levels advised Social History Review of Systems - Cardiovascular: Denies chest pain, reports good circulation in feet - Neurological: Reports peripheral neuropathy in hands, denies in feet - Integumentary: Reports slow healing of wounds Physical Exam - Cardiovascular: Regular rate and rhythm, no murmurs, good circulation noted in feet Results - Labs: Hemoglobin A1c 6.4, Creatinine 2.48, LDL 107 - Echocardiogram: Normal left ventricular ejection fraction 55-60%, mild left ventricular hypertrophy, impaired relaxation, mild aortic regurgitation Plan The patient will continue to follow up with nephrology for management of chronic kidney disease, with stable creatinine levels noted. Diabetes management includes insulin therapy, with a current hemoglobin A1c of 6.4, and monitoring of blood glucose levels is advised. For cardiovascular conditions, the patient will continue regular follow-ups with cardiology for pacemaker checks and management of coronary artery disease, hypertension, and atrial fibrillation. The patient has declined cholesterol medication but will continue to monitor cholesterol levels. Pain management for lumbar degenerative disc disease includes the use of Oxycontin 10 mg, with a refill requested during the visit. Preventative care includes a recent shingles vaccination, and the patient is advised to maintain good wound care practices due to slow healing associated with diabetes. Patient was informed and verbally consented to the use of an ambient scribe for clinic note documentation during this visit. Discussion Notes I discussed with the patient the importance of continuing follow-ups with nephrology and cardiology to manage his chronic conditions effectively. We reviewed his current medications, including insulin for diabetes and Oxycontin for pain management, and emphasized the need for regular monitoring of blood glucose and cholesterol levels. The patient was informed about the benefits of the shingles vaccination, which he recently received, and the importance of maintaining good wound care practices due to slow healing associated with diabetes. Patient Instructions - Continue follow-ups with nephrology and cardiology as scheduled. - Monitor blood glucose levels regularly and report any significant changes. - Maintain good wound care practices to prevent infections. - Continue taking prescribed medications, including insulin and Oxycontin, as directed. - Consider getting the shingles vaccine if not already done. Orders: Orders AMB Hemoglobin A1c Today E11.65 - Type 2 diabetes mellitus with hyperglycemia Medications: Refilled oxycodone 10 mg PO QID PRN 100 tabs 0RF pain M51.36 - Other intervertebral disc degeneration, lumbar region
[2025-01-20 12:51] VITALS: BP 120/72; PULSE 64; TEMP 36.2; O2SAT 98; BMI 28.9
== END 2025-01-20 13:20 | disposition home or self-care (01) ==
LOC: HO.HMCH 12:45
PROVIDERS: PCP Internal Medicine; Visit Provider Internal Medicine
DX: I12.9 Hypertensive chronic kidney disease with stage 1 through stage 4 chronic kidney disease, or unspecified chronic kidney disease (principal); I48.0 Paroxysmal atrial fibrillation; E11.65 Type 2 diabetes mellitus with hyperglycemia; N18.4 Chronic kidney disease, stage 4 (severe); I25.10 Atherosclerotic heart disease of native coronary artery without angina pectoris; E78.00 Pure hypercholesterolemia, unspecified; Z95.0 Presence of cardiac pacemaker; M51.369 Other intervertebral disc degeneration, lumbar region without mention of lumbar back pain or lower extremity pain

== ENCOUNTER → 2025-01-20 12:44 | Outpatient (BNVA) | payer MEDICARE, SELFPAY | PROVIDERS: PCP Internal Medicine; Visit Provider Internal Medicine | DX: E11.22 Type 2 diabetes mellitus with diabetic chronic kidney disease (principal); E11.65 Type 2 diabetes mellitus with hyperglycemia; I25.10 Atherosclerotic heart disease of native coronary artery without angina pectoris; I48.0 Paroxysmal atrial fibrillation; E78.00 Pure hypercholesterolemia, unspecified; I12.9 Hypertensive chronic kidney disease with stage 1 through stage 4 chronic kidney disease, or unspecified chronic kidney disease; N18.4 Chronic kidney disease, stage 4 (severe); M51.369 Other intervertebral disc degeneration, lumbar region without mention of lumbar back pain or lower extremity pain; I48.91 Unspecified atrial fibrillation; I42.9 Cardiomyopathy, unspecified; Z95.0 Presence of cardiac pacemaker | CPT/HCPCS: 83036; 99212 ==

== ENCOUNTER 2025-02-21 13:09 | Outpatient (AMB) | payer MEDICARE, SELFPAY ==
--- NOTE | 2025-02-21 13:25 | A.OFFVIS_ITS ---
Vital Signs 02/21/25 13:27 Height 6 ft 1 in Weight 220 lb 7.396 oz BMI 29.1 BP 120/66 Blood Pressure Location Lt brachial Position Sitting Pulse 60 Intake Visit Reasons: 6 mth w/ pacer ck Intake Note: 6 month follow-up with tenfarms check feeling good Airconditioning Drafting Officer Required: No Allergies valsartan (From DIOVAN) Allergy (Mild, Verified 01/20/25 12:50) ITCHING losartan Allergy (Unknown, Verified 01/20/25 12:50) itch lisinopril (LISINOPRIL) Adverse Reaction (Intermediate, Verified 01/20/25 12:50) LEG CRAMPS., leg cramps Medication List - Last Reconciled 02/21/25 by Dionisio Cardenas MD atenolol 25 mg PO DAILY blood sugar diagnostic 1 strip miscellaneous QID 30 days blood-glucose sensor (FreeStyle Siomara 2 Plus Sensor device) As directed hydrochlorothiazide 25 mg PO DAILY PRN 90 days insulin aspart (niacinamide) 100 unit/mL (3 mL) (Fiasp FlexTouch U-100 Insulin) 6 units with breakfast, 7 units with lunch and 8 units with dinner. subcut 3 times a day; 90 days insulin degludec (Tresiba FlexTouch U-100 insulin) 8 units (0.08 mL) subcut BEDTIME 90 days latanoprost 0.005% 1 drp ophthalmic (eye) DAILY [Siomara 2 glucose monitor As directed] [Siomara Freestyle glucose monitor As directed] lidocaine 4% (Aspercreme (lidocaine)) 1 patch topical DAILY PRN oxycodone 10 mg PO QID PRN pen needle, diabetic 4 times a day [Pro REnal +D As directed] [RENADRYL As directed] HPI Comments Details: Bandar comes for follow-up. He has been doing well overall from cardiac perspective. He said he has not been able to exercise much because of his back pain. Denies any falls. No prolonged palpitation irregular heartbeat. No orthopnea, PND, leg edema. Currently taking his oral diuretic therapy. Recent echocardiogram had shown normal LV ejection fraction with mild LVH with mild aortic regurgitation. Comes for pacemaker evaluation. 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 Dyslipidemia CKD (chronic kidney disease) stage 4, GFR 15-29 ml/min Surgical History History of permanent cardiac pacemaker placement Hx of inguinal hernia surgery Family History Father Pancreatic cancer Mother Diabetes Alzheimers disease Social History Household Members: None Housing: House Alcohol intake: never Patient Tobacco Use Status: Never used Tobacco Tobacco use type: Cigarette e-Cigarette/Vaping Use: Never Used Second Hand Smoke Exposure: No service: No Current occupational status: retired Current occupational exposures/hazards: No Cognitive needs: Yes (walker ) Hearing needs: Yes (Hearing aide) Vision needs: Yes Review of Systems Const Denies chills, Denies fatigue, Denies fever(s), Denies frequent falls, Denies weakness, Denies weight gain and Denies weight loss ENT Denies dizziness Card Denies chest pain, Denies leg edema, Denies lightheadedness, Denies palpitations, Denies dyspnea, Denies dyspnea on exertion, Denies orthopnea and Denies other (loss of consciousness) Resp Denies cough, Denies dyspnea and Denies dyspnea on exertion GI Denies hematochezia and Denies change in stool character Musc Denies abnormal gait, Denies muscle weakness, Denies numbness, Denies radiating pain into limb and Denies tingling Neuro Denies abnormal gait, Denies dizziness, Denies frequent falls, Denies numbness, Denies tingling and Denies weakness Endo Denies fatigue and Denies palpitations Physical Exam Vital Signs: Last Vital Signs Pulse 60 02/21/25 13:27 BP 120/66 02/21/25 13:27 BMI result Body Mass Index 29.1 Const General: cooperative, comfortable, no acute distress, alert, awake and tired appearing Nutritional Appearance: average body habitus and other ( frail elderly man) Orientation/consciousness: patient oriented x3 Limitations: ambulation with walker Neck Neck: Yes trachea midline, Yes supple and Yes no JVD Resp Effort & Inspection: normal respiratory effort Auscultation: clear to auscultation bilaterally Cardio Jugular venous distension: no JVD Palpation: normal PMI Rate: regular rate Rhythm: regular rhythm Heart sounds: S1 normal heart sound present, S2 normal heart sound present, no click, no gallops, no murmurs and no rubs Skin General skin exam: no rashes or lesions noted and ecchymosis Neuro General: patient oriented x3 and no focal motor deficits Extrem General: Yes no clubbing, cyanosis or edema Office Procedures Cardiac Device Check Cardiac Device Check Details: Dual-chamber Medtronic pacemaker in place. Programmed in DDD at 60 beats per minute. Ventricular pacing 100% of the time. Ventricular sensing could not be checked. Atrial sensing is adequate. Atrial pacing thresholds adequate and reprogrammed to enhance battery life. Ventricular pacing thresholds elevated and reprogrammed to provide adequate safety. Pacing lead impedance is stable. Battery life is at about 6 months 37373-IX Cardiac Device Check, pacemaker dual lead Procedure code (CPT) selection complete Assessment & Plan Assessment & Plan (1) Cardiac pacemaker in situ: Code(s): Z95.0 - Presence of cardiac pacemaker Category: Medical Plan: Cardiac pacemaker in-situ for complete heart block. Patient was dependent ventricularly on the pacemaker. Will follow up in the clinic in 3 months time given closer RUFINA. Discussed with the patient he is agreeable. (2) CAD (coronary artery disease): Code(s): I25.10 - Atherosclerotic heart disease of [place] coronary artery without angina pectoris Category: Medical Qualifiers: Coronary Disease-Associated Artery/Lesion type: [place] artery [place] vs. transplanted heart: [place] heart Associated angina: without angina Qualified Code(s): I25.10 - Atherosclerotic heart disease of [place] coronary artery without angina pectoris Plan: CAD nonobstructive without any current symptoms. Continue aggressive risk factor modification with blood pressure is currently well optimized. Continue aggressive diabetes management goal hemoglobin A1c less than 7%. She would consider statin therapy with target goal LDL less than 100 mg/dL least. 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 No change in treatment. Continue atenolol for neurohormonal modulation. Continue aggressive blood pressure control. Signs and symptoms of heart failure were discussed. Will follow up in the clinic in 3 months time, sooner p.r.n.. Thank you for allowing me to partake in his care Coding Level of Care Code Est Pt Level 4 (17331) Complex EM visit Add On G2211 Diagnoses Cardiac pacemaker in situ Z95.0 Coronary artery disease involving [place] coronary artery of [place] heart without angina pectoris I25.10 Coronary Disease-Associated Artery/Lesion type: [place] artery [place] vs. transplanted heart: [place] heart Associated angina: without angina Cardiomyopathy, unspecified type I42.9 Cardiomyopathy type: unspecified CPT Codes Cardiac Device Check - Cardiac Device 2: 53286-JK Cardiac Device Check, pacemaker dual lead ([id number])
[2025-02-21 13:27] VITALS: BP 120/66; PULSE 60; BMI 29.1
--- OUTSIDE RECORDS SUMMARY | 2025-02-21 17:05 | XMS_ITS | Patient Health Record ---
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 Name Role Phone Nestor Almanza Primary Care Provider Armin Cruz Unavailable [phone] Allergies Allergen (clinical drug ingredient) Drug/Non Drug [...] atherosclerosis of arteries of lower limbs (disorder) (53210810313978907 ) Unspecified atherosclerosis of [place] arteries of extremities, bilateral legs (I70.203) Active confirmed Problem Acquired hammer toe of right foot (5083435938687550) Other hammer toe(s) (acquired), right foot (M20.41) Active confirmed Problem Acquired hammer toe of left foot (1481705022939428) Other hammer toe(s) (acquired), left foot (M20.42) Active confirmed Problem Neurologic disorder 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 II diabetes mellitus (099678970) Type 2 diabetes mellitus with other diabetic neurological complication (E11.49) Active confirmed Plan Of Treatment Pending Test Test Name Order Date X ray : Foot, left 3V 07/07/2018 [id number] NAIL, 1-5 03/13/2011 [id number] NAIL, -06/12/2011 [id number] NAIL, -09/11/2011 [id number] NAIL, 1-12/08/2011 [id number] NAIL, -5 03/08/2012 [id number] NAIL, -09/08/2012 [id number] NAIL, 1-09/10/2016 87324-Ivhdvkrm Plate 09/08/2012 56632-Muytolfe Plate 05/29/2015 [id number] Plate 03/13/2011 75919-Fsqzlygx Plate 08/08/2011 [id number] SKIN LESIONS, 2 TO 4 09/11/19 17 92664-TQWS SKIN LESIONS, 2 TO 4 11/05/19 19 72627-EVRT SKIN LESIONS, 2 TO 4 05/19/20 19 38665-LTZQ NAIL(S) 09/10/2016 [id number] NAIL(S) 09/08/2012 83613-RZUP NAIL(S) 12/08/2011 [id number] NAIL(S) 03/08/2012 [id number] NAIL(S) 09/11/2011 92874-QBPB NAIL(S) 06/12/2011 68408-VWUD NAIL(S) 03/13/2011 [id number] DYSTROPHIC NAILS ANY # [id number] DYSTROPHIC NAILS ANY # Insurance Providers Payer Name Payer Address Payer Phone Subscriber Number Group Number Insured Name Patient Relationship to Insured Coverage Start Date Coverage End Date Medicare National [employer] [address] [place] [address] [id number] Zacarias Poole Self - patient is the insured [employer] [address] [place] [address] [id number] Zacarias Poole Self - patient is the insured Medical (General) History Medical History History ICD Code hypertension diabetic Pacemaker 2008 Kidney disease Surgical History Surgery Date(Month/Year) cardiac pacemaker 2008 tonsillectomy 1948
== END 2025-02-21 14:13 | disposition home or self-care (01) ==
LOC: HO.HCS 13:10
PROVIDERS: PCP Internal Medicine; Visit Provider Internal Medicine Cardiovascular Disease
DX: I25.10 Atherosclerotic heart disease of native coronary artery without angina pectoris (principal); Z95.0 Presence of cardiac pacemaker; I42.9 Cardiomyopathy, unspecified
CPT/HCPCS: 93280; 99214; G2211

== ENCOUNTER → 2025-02-21 13:09 | Outpatient (BNVA) | payer MEDICARE, SELFPAY | PROVIDERS: PCP Internal Medicine; Visit Provider Internal Medicine Cardiovascular Disease | DX: I25.10 Atherosclerotic heart disease of native coronary artery without angina pectoris (principal); Z95.0 Presence of cardiac pacemaker; I42.9 Cardiomyopathy, unspecified | CPT/HCPCS: 93280; 99212 ==

== ENCOUNTER 2025-02-26 17:08 | Emergency (ER) | payer MEDICARE, SELFPAY ==
[2025-02-26 17:13] VITALS: BP 153/66; PULSE 60; RESP 18; TEMP 36.4; O2SAT 100; BMI 28.2
--- NOTE | 2025-02-26 17:13 | ED.GENADULT ---
HPI - General Adult General Chief complaint: General Medical Stated complaint: finger nail bed purple Time Seen by Provider: 02/26/25 19:14 Source: patient, family, RN notes reviewed and old records reviewed Mode of arrival: ambulatory Limitations: no limitations History of Present Illness ED Provider: Lemuel HPI narrative: Patient is an 84y/o male pmhx CKD stage 4, cardiomyopathy, pacemaker, CAD, paroxysmal afib, HTN, T2DM with neuropathy, dyslipidemia presenting to the ED with family (cousin) who is concerned about patient's nails appearing blue/purple at home. Cousin communicated with other family members, one a nurse, one a respiratory therapist who advised patient should be evaluated oswald. Patient denies any complaints, just saw Dr. Cardenas 2 days ago. O2 100% on room air in triage. He denies any chest pain, palpitations, dyspnea, recent cough, or fevers. MD complaint: fingernail discoloration Related Data Home Medications ?Medication ?Instructions ?Recorded ?Confirmed latanoprost 0.005 % eye drops 1 drp ophthalmic (eye) DAILY 03/09/20 02/21/25 lidocaine 4 % topical patch 1 patch topical DAILY PRN 03/09/20 02/21/25 (Aspercreme (lidocaine)) Previous Rx's ?Medication ?Instructions ?Recorded Pro REnal +D #1 ea 03/31/22 RENADRYL #60 ea 04/10/22 blood sugar diagnostic 1 strip miscellaneous QID 30 days 12/15/22 #150 strips Siomara Freestyle glucose monitor #1 ea 08/29/24 Siomara 2 glucose monitor #1 ea 09/09/24 insulin degludec 100 unit/mL (3 8 unit (0.08 mL) subcut BEDTIME 11/03/24 mL) subcutaneous pen (Tresiba days #15 mL FlexTouch U-100 insulin) atenolol 25 mg tablet 25 mg PO DAILY #90 tabs 11/27/24 pen needle, diabetic 32 gauge x #400 ea 12/29/24 insulin aspart See Rx Instructions subcut TID 12/30/24 (niacinamide)(U-100) 100 unit/mL(3 days #45 mL mL) subcutaneous pen (Fiasp FlexTouch U-100 Insulin) hydrochlorothiazide 25 mg tablet 25 mg PO DAILY PRN swelling 90 01/19/25 days #90 tabs blood-glucose sensor (FreeStyle #2 ea 02/13/25 Siomara 2 Plus Sensor device) oxycodone 10 mg tablet 10 mg PO QID PRN pain #100 tabs 02/20/25 Allergies Allergy/AdvReac Type Severity Reaction Status Date / Time valsartan (From DIOVAN) Allergy Mild ITCHING Verified 02/26/25 17:17 losartan Allergy Unknown itch Verified 02/26/25 17:17 lisinopril (LISINOPRIL) AdvReac Intermediate LEG Verified 02/26/25 17:17 CRAMPS., leg cramps Review of Systems Review of Systems: As per HPI Yes all other systems are reviewed and are negative Constitutional: Constitutional: Reports as per HPI [facility] Past Medical History Medical History CKD (chronic kidney disease) Frequent UTI Cardiomyopathy Cardiac pacemaker in situ Complete heart block DDD (degenerative disc disease), lumbar CAD (coronary artery disease) BPH (benign prostatic hyperplasia) Chronic kidney disease (CKD) stage G4/A2, severely decreased glomerular filtration rate (GFR) between 15-29 mL/min/1.73 square meter and albuminuria creatinine ratio between 30-299 mg/g Hypercholesterolemia Paroxysmal atrial fibrillation Hypertension 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 2 diabetes 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 Dyslipidemia CKD (chronic kidney disease) stage 4, GFR 15-29 ml/min Surgical History History of permanent cardiac pacemaker placement Hx of inguinal hernia surgery Family History Family History Father Pancreatic cancer Mother Diabetes Alzheimers disease Social History Social History Household Members: None Housing: House Alcohol intake: never Patient Tobacco Use Status: Never used Tobacco Tobacco use type: Cigarette e-Cigarette/Vaping Use: Never Used Second Hand Smoke Exposure: No service: No Current occupational status: retired Current occupational exposures/hazards: No Cognitive needs: Yes (walker ) Hearing needs: Yes (Hearing aide) Vision needs: Yes Physical Exam ED Vital Signs: Vital Signs - 24 hr 02/26/25 17:13 Temperature 97.5 F Pulse Rate 60 Respiratory Rate 18 Blood Pressure 153/66 H Pulse Oximetry 100 Oxygen Delivery Method Room Air BMI result Body Mass Index 28.2 Vital signs have been reviewed and appear to be correct. Blood pressure normal. Heart rate normal. Respiratory rate normal. Temperature normal. Oxygen saturation normal. Const General: cooperative, healthy appearing and no acute distress Orientation/consciousness: oriented to person, oriented to place, oriented to time and patient oriented x3 Limitations: no limitations HENMT Head: Yes normocephalic and Yes atraumatic Ears: external ears normal General nose exam: Normal external nose present Face and sinus: Yes face symmetric Mouth: oropharynx normal and moist mucous membranes Throat: Yes uvula midline Eyes Pupils: Equal, round and reactive pupils present Neck Neck: Yes normal visual inspection and Yes supple Resp Effort & Inspection: normal respiratory effort and able to speak in complete sentences Auscultation: clear to auscultation bilaterally Cardio Rate: regular rate Rhythm: regular rhythm Heart sounds: S1 normal heart sound present and S2 normal heart sound present GI Palpation (GI): Soft to palpation and nontender Auscultation: normoactive bowel sounds General: Yes no CVA tenderness Back/Spine/Pelvis Back: no CVA tenderness Skin General skin exam: elasticity normal and turgor normal Neuro General: oriented to person, oriented to place, oriented to time, patient oriented x3, moves all extremities, no focal motor deficits and CN's II-XI intact bilaterally Cranial nerves: Yes Equal, round and reactive pupils present Cognition (Neuro): normal cognition Extrem General: Yes full ROM, Yes no pedal edema and Yes no calf tenderness Psych Mental Status: mental status grossly normal Affect: normal affect Thought process: Normal thought process present Course Course Course Narrative: This is a rapid medical exam performed by Aster Hdez NP: Additional HPI, ROS, PE not included below will be deferred to primary provider. Patient is an 84y/o M pmhx CKD stage 4, cardiomyopathy, pacemaker, CAD, paroxysmal afib, HTN, T2DM with neuropathy, dyslipidemia presenting to the ED with family who is concerned about patient's nails appearing blue/purple. He communicated with other family members, one a nurse, one a respiratory therapist who advised patient should be evaluated oswald. Patient denies any complaints, just saw Dr. Cardenas 2 days ago. O2 100% on room air in triage. Plan: labs Medical Decision Making Medical Decision Making [facility] Narrative: Patient is an 84y/o male pmhx CKD stage 4, cardiomyopathy, pacemaker, CAD, paroxysmal afib, HTN, T2DM with neuropathy, dyslipidemia presenting to the ED with family (cousin) who is concerned about patient's nails appearing blue/purple at home. On exam patient is awake, A+Ox3, VS WNL, afebrile, normal neurological exam without focal deficits, physical exam findings as above. Given that patient is without complaints and oxygenation is 100% on room air here, case discussed with attending, Dr. Garcia, who recommends checking CBC, CMP, and venous blood gas. Given reported symptoms and physical exam findings, initial differential includes but is not limited to hypoxia, anemia. Labs notable for no leukocytosis, mild anemia similar to prior values, no significant electrolyte abnormalities, no significant abnormalitieis on VBG. Feel patient is stable for discharge home at this time. Advised follow up with PCP. Recommended purchasing an [id number] pulse oximeter to check his oxygen saturation at home. Patient states he already has 1 but did not use it to check his oxygenation today. Return precautions discussed. Patient and family verbalized understanding of and agreement with plan. Differential Diagnosis Differential Diagnoses: The differential diagnosis associated with the presentation includes As per [facility] Admission/Observation Consideration of admission/observation: Escalation of care including admission/observation considered Patient would have been admitted to the hospital and transferred to appropriate facility had their clinical presentation warranted hospital admission. Lab Data [facility] Lab Attestation statement: I reviewed the patient's lab results. as per [facility] 02/26/25 17:44 02/26/25 17:44 Labs: Lab Results 02/26/25 02/26/25 Range/Units 17:44 17:49 WBC 5.5 (4.8-10.8) X10*3/uL RBC 3.87 L (4.60-5.80) X10*6/uL Hgb 12.2 L (14.0-18.0) g/dl Hct 36.2 L (42.0-52.0) % MCV 93.5 (80.0-98.0) fL MCH 31.5 (27.0-33.0) pg MCHC 33.7 (31.0-36.0) g/dl RDW 13.9 (11.0-16.0) % Plt Count 116 L (160-400) X10*3/uL MPV 12.1 (9.4-12.4) fL Immature Gran % (Auto) 0.2 (0.0-0.4) % Neut % (Auto) 55.7 (45-73) % Lymph % (Auto) 31.2 (20-40) % [place] % (Auto) 8.6 (2-11) % Eos % (Auto) 3.7 (0-4) % Baso % (Auto) 0.6 (0-2) % Lymph # (Auto) 1.7 (1.2-4.9) X10*3/uL [place] # (Auto) 0.5 (0.1-1.2) X10*3/uL Eos # (Auto) 0.2 (0.0-0.4) X10*3/uL Baso # (Auto) 0.0 (0.0-0.2) X10*3/uL Abs Immat Gran (auto) 0.01 (0.00-0.03) X10*3/uL Absolute Neuts (auto) 3.0 (2.0-8.3) x10*3/uL Absolute Nucleated RBC 0.000 (0.0-0.012) X10*3/uL Nucleated RBC % (auto) 0.0 (0.0-0.2) /100WBC VBG pH 7.39 (7.32-7.43) VBG pCO2 48 mmHg VBG pO2 37 mmHg VBG HCO3 30 H (22-26) mmol/L VBG O2 Saturation 59.0 % VBG Base Excess 4.3 mmol/L Sodium 142 (135-145) mmol/L Potassium 3.5 (3.3-5.1) mmol/L Chloride 106 (96-108) mmol/L Carbon Dioxide 28 (22-29) mmol/L Anion Gap 12 (12-20) BUN 30 H (9-16) mg/dL Creatinine 2.52 H (0.5-1.4) mg/dL Estim Creat Clear Calc 27.5 Estimated GFR 25 Random Glucose 87 (60-115) mg/dL Calcium 10.2 D (8.4-10.2) mg/dL Total Bilirubin 0.5 (0.0-1.0) mg/dL AST 30 (5-37) U/L ALT 27 (0-40) U/L Alkaline Phosphatase 60 (39-117) U/L Total Protein 6.8 (6.5-8.0) g/dL Albumin 4.3 (3.5-5.0) g/dL Independent Historian Clinical information obtained from an independent historian. History obtained from or confirmed by: Other (cousin) External Record Review External record reviewed: Inpatient record, Office record and Outpatient record Discharge Plan Discharge Clinical Impression: Fingernails, bluish Patient Disposition: Home, Self-Care Additional Instructions: You were evaluated in the emergency department today for a blue/purple discoloration to your fingernails. Your oxygen saturation on room air in the emergency department was 99-100% which is normal. Your labs including CBC, CMP, and venous blood gas were all reassuring and did not show evidence of any emergent medical conditions. Follow up with your primary care provider for any ongoing concerns. Return to the emergency department with any new or concerning symptoms. Prescriptions: No Action (DME) RENADRYL See Rx Instructions .Route .MEDSUPPLY Qty: 60 3RF Rx Instructions: As directed blood sugar diagnostic Strip 1 strip miscellaneous QID 30 Days Qty: 150 12RF (DME) Siomara Freestyle glucose monitor See Rx Instructions .Route .MEDSUPPLY Qty: 1 0RF Rx Instructions: As directed (DME) Siomara 2 glucose monitor See Rx Instructions .Route .MEDSUPPLY Qty: 1 0RF Rx Instructions: As directed insulin degludec [Tresiba FlexTouch U-100] 100 unit/mL (3 mL) insulin pen 8 unit subcut BEDTIME 90 Days Qty: 15 4RF atenolol 25 mg tablet 25 mg PO DAILY Qty: 90 1RF (DME) pen needle, diabetic 32 gauge x 5/32 needle See Rx Instructions .ROUTE .MEDSUPPLY Qty: 400 1RF Rx Instructions: 4 times a day Fiasp FlexTouch U-100 Insulin 100 unit/mL (3 mL) insulin pen See Rx Instructions subcut TID 90 Days Qty: 45 1RF Rx Instructions: 6 units with breakfast, 7 units with lunch and 8 units with dinner. subcut 3 times a day; hydrochlorothiazide 25 mg tablet 25 mg PO DAILY PRN (Reason: swelling) 90 Days Qty: 90 3RF (DME) FreeStyle Siomara 2 Plus Sensor Device See Rx Instructions .Route Qty: 2 5RF Rx Instructions: As directed oxycodone 10 mg tablet 10 mg PO QID PRN (Reason: pain) Qty: 100 0RF (DME) Pro REnal +D See Rx Instructions .Route .MEDSUPPLY Qty: 1 0RF Rx Instructions: As directed latanoprost 0.005 % drops 1 drp ophthalmic (eye) DAILY lidocaine [Aspercreme (lidocaine)] 4 % adhesive patch,medicated 1 patch topical DAILY PRN Rx Instructions: may leave on for up to 12 hrs Print Language: Cypriot
[2025-02-26 17:52] LABS: MANUAL DIFF FLAG NO
[2025-02-26 17:53] LABS: VBG HCO3 30 mmol/L (22-26); VBG O2 % Saturation 59.0 %
[2025-02-26 17:53] LABS: Venous Blood Gas Refer to POC result
[2025-02-26 18:05] LABS: Hematocrit 36.2 % (42.0-52.0); Hemoglobin 12.2 g/dl (14.0-18.0); Imm Gran Abs Auto 0.01 X10*3/uL (0.00-0.03); Imm Gran Pct Auto 0.2 % (0.0-0.4); Lymphocytes Absolute Auto 1.7 X10*3/uL (1.2-4.9); Mean Corpuscular HGB Conc 33.7 g/dl (31.0-36.0); Mean Corpuscular Hemoglobin 31.5 pg (27.0-33.0); Mean Corpuscular Volume 93.5 fL (80.0-98.0); NRBC Abs Auto 0.000 X10*3/uL (0.0-0.012); NRBC Pct Auto 0.0 /100WBC (0.0-0.2); Platelet Count 116 X10*3/uL (160-400); Red Blood Count 3.87 X10*6/uL (4.60-5.80); White Blood Count 5.5 X10*3/uL (4.8-10.8)
[2025-02-26 18:06] LABS: Alanine Aminotransferase 27 U/L (0-40); Albumin Level 4.3 g/dL (3.5-5.0); Alkaline Phosphatase 60 U/L (39-117); Anion Gap 12 (12-20); Aspartate Amino Transferase 30 U/L (5-37); Blood Urea Nitrogen 30 mg/dL (9-16); Calcium 10.2 mg/dL (8.4-10.2); Carbon Dioxide 28 mmol/L (22-29); Chloride 106 mmol/L (96-108); Creatinine Clr Calc Pharmacy 27.5; Estimated Glomerular Filt Rate 25; Potassium 3.5 mmol/L (3.3-5.1); Sodium 142 mmol/L (135-145); Total Protein 6.8 g/dL (6.5-8.0)
--- OUTSIDE RECORDS SUMMARY | 2025-02-26 19:27 | XMS_ITS | Patient Health Record ---
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 Name Role Phone Nestor Almanza Primary Care Provider Armin Cruz Unavailable [phone] Allergies Allergen (clinical drug ingredient) Drug/Non Drug [...] atherosclerosis of arteries of lower limbs (disorder) (12919565823033354 ) Unspecified atherosclerosis of [place] arteries of extremities, bilateral legs (I70.203) Active confirmed Problem Acquired hammer toe of right foot (3650381995250835) Other hammer toe(s) (acquired), right foot (M20.41) Active confirmed Problem Acquired hammer toe of left foot (0423303168507236) Other hammer toe(s) (acquired), left foot (M20.42) Active confirmed Problem Neurologic disorder 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 II diabetes mellitus (294246086) Type 2 diabetes mellitus with other diabetic neurological complication (E11.49) Active confirmed Plan Of Treatment Pending Test Test Name Order Date X ray : Foot, left 3V 07/07/2018 [id number]-HJFZFQI NAIL, 1-5 03/13/2011 48292-PTDBREJ NAIL, -06/12/2011 08152-FCMUVUA NAIL, -09/11/2011 77185-EYOBTOW NAIL, 1-12/08/2011 46069-GATAAWE NAIL, -5 03/08/2012 79154-OZGHCBH NAIL, -09/08/2012 01908-SJKMSES NAIL, 1-09/10/2016 98444-Pgtpekbx Plate 09/08/2012 34374-Hojfhrue Plate 05/29/2015 83348-Dbwmfejh Plate 03/13/2011 13264-Fcnvzpbx Plate 08/08/2011 16615-GWXE SKIN LESIONS, 2 TO 4 09/11/19 17 89375-FFSX SKIN LESIONS, 2 TO 4 11/05/19 19 44281-HYMS SKIN LESIONS, 2 TO 4 05/19/20 19 81959-DXGO NAIL(S) 09/10/2016 02020-TAHJ NAIL(S) 09/08/2012 51324-KYWG NAIL(S) 12/08/2011 85097-XPKA NAIL(S) 03/08/2012 47339-JCQD NAIL(S) 09/11/2011 55289-EWIA NAIL(S) 06/12/2011 38713-OYCA NAIL(S) 03/13/2011 M2198-WIAHNWYU DYSTROPHIC NAILS ANY # B1239-FVWVQJPT DYSTROPHIC NAILS ANY # Insurance Providers Payer Name Payer Address Payer Phone Subscriber Number Group Number Insured Name Patient Relationship to Insured Coverage Start Date Coverage End Date Medicare National Govt Svcs Inc [address] [place] [address] [id number] Zacarias Poole Self - patient is the insured [employer] Blue Shield [address] [place] [address] [phone] [id number] Zacarias Poole Self - patient is the insured Medical (General) History Medical History History ICD Code hypertension diabetic Pacemaker 2008 Kidney disease Surgical History Surgery Date(Month/Year) cardiac pacemaker 2008 tonsillectomy 1948
[2025-02-26 20:10] VITALS: BP 178/74; PULSE 61; RESP 16; TEMP 36.8; O2SAT 99
== END 2025-02-26 20:11 | disposition home or self-care (01) ==
PROVIDERS: Registered Nurse Emergency; Emergency Provider Emergency Medicine; PCP Internal Medicine
DX: I13.0 Hypertensive heart and chronic kidney disease with heart failure and stage 1 through stage 4 chronic kidney disease, or unspecified chronic kidney disease (principal); I25.10 Atherosclerotic heart disease of native coronary artery without angina pectoris; E11.9 Type 2 diabetes mellitus without complications; I48.0 Paroxysmal atrial fibrillation; Z79.4 Long term (current) 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; Z79.899 Other long term (current) drug therapy
CPT/HCPCS: 36415; 80053; 82803; 85025; 99282; 99283

== ENCOUNTER → 2025-03-23 23:59 | Outpatient (BNV) | payer MEDICARE, SELFPAY ==
--- NOTE | 2025-03-27 15:16 | MHC.OFFVIS ---
Intake Visit Reasons: Remote device check- Medtronic Allergies valsartan (From DIOVAN) Allergy (Mild, Verified 02/26/25 17:17) ITCHING losartan Allergy (Unknown, Verified 02/26/25 17:17) itch lisinopril (LISINOPRIL) Adverse Reaction (Intermediate, Verified 02/26/25 17:17) LEG CRAMPS., leg cramps PFSH Medical History CKD (chronic kidney disease) Frequent UTI Cardiomyopathy Cardiac pacemaker in situ Complete heart block DDD (degenerative disc disease), lumbar CAD (coronary artery disease) BPH (benign prostatic hyperplasia) Chronic kidney disease (CKD) stage G4/A2, severely decreased glomerular filtration rate (GFR) between 15-29 mL/min/1.73 square meter and albuminuria creatinine ratio between 30-299 mg/g Hypercholesterolemia Paroxysmal atrial fibrillation Hypertension 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 2 diabetes mellitus 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) 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 Dyslipidemia CKD (chronic kidney disease) stage 4, GFR 15-29 ml/min Surgical History History of permanent cardiac pacemaker placement Hx of inguinal hernia surgery Family History Father Pancreatic cancer Mother Diabetes Alzheimers disease Social History Household Members: None Housing: House Alcohol intake: never Patient Tobacco Use Status: Never used Tobacco Tobacco use type: Cigarette e-Cigarette/Vaping Use: Never Used Second Hand Smoke Exposure: No Advance Directives: Yes Advance Directives Information Provided: No Advance Directives on File: No service: No Current occupational status: retired Current occupational exposures/hazards: No Cognitive needs: Yes (walker ) Hearing needs: Yes (Hearing aide) Vision needs: Yes Office Procedures Cardiac Device Check Cardiac Device Check Details: Remote pacemaker report generated 03/23/2025. Pacemaker function has adequate. Patient's ventricularly pacer dependent. 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 Will follow in 1 month 97109-Qnhbvu Cardiac Device Interrogation, pacemaker Procedure code (CPT) selection complete Assessment & Plan Assessment & Plan (1) Cardiac pacemaker in situ: Code(s): Z95.0 - Presence of cardiac pacemaker Category: Medical Plan: See above Coding Level of Care Code Procedure Only Diagnoses Cardiac pacemaker in situ Z95.0 CPT Codes Cardiac Device Check - Cardiac Device 12: 10075-Pexojg Cardiac Device Interrogation, pacemaker ([id number])
== END ==
PROVIDERS: PCP Internal Medicine; Visit Provider Internal Medicine Cardiovascular Disease
DX: Z45.010 Encounter for checking and testing of cardiac pacemaker pulse generator [battery] (principal)
CPT/HCPCS: 93294

== ENCOUNTER 2025-03-30 12:29 | Outpatient (REF) | payer MEDICARE, SELFPAY ==
[2025-03-30 13:16] LABS: Appearance Urine Turbid; Glucose Urine UA Negative (Negative); PH 8.5 (5.0-9.0); Specific Gravity - Urine 1.010 (1.005-1.025); UMIC TRIGGER UACC YES
[2025-03-30 13:36] LABS: UACC Culture Trigger YES
== END 2025-03-30 12:30 | disposition home or self-care (01) ==
LOC: HO.LAB 12:29
PROVIDERS: PCP Internal Medicine; Visit Provider Internal Medicine
DX: R30.0 Dysuria (principal)
CPT/HCPCS: 81001; 87086; 87088; 87186

== ENCOUNTER 2025-04-06 10:26 | Outpatient (REF) | payer MEDICARE, SELFPAY ==
--- OUTSIDE RECORDS SUMMARY | 2025-04-06 12:44 | XMS_ITS | Patient Health Record ---
Author Organization [facility] Address [address] [place] [address] Care Team Providers Care Gmat Instructor Name Role Phone Nestor Almanza Primary Care Provider Armin Monsalve Unavailable [phone] Allergies Allergen (clinical drug ingredient) Drug/Non Drug [...] atherosclerosis of arteries of lower limbs (disorder) (72990881529537836 ) Unspecified atherosclerosis of [place] arteries of extremities, bilateral legs (I70.203) Active confirmed Problem Acquired hammer toe of right foot (6147215401057840) Other hammer toe(s) (acquired), right foot (M20.41) Active confirmed Problem Acquired hammer toe of left foot (5100640256423445) Other hammer toe(s) (acquired), left foot (M20.42) Active confirmed Problem Neurologic disorder 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 II diabetes mellitus (605287458) Type 2 diabetes mellitus with other diabetic neurological complication (E11.49) Active confirmed Plan Of Treatment Pending Test Test Name Order Date X ray : Foot, left 3V 07/07/2018 77862-LIVUARV NAIL, 1-5 03/13/2011 32319-NYSSKMX NAIL, 1-5 06/12/2011 63088-LMHDBDO NAIL, 1-5 09/11/2011 11411-ZCQPLMB NAIL, 1-5 12/08/2011 72548-OKBRWNN NAIL, 1-5 03/08/2012 67544-WXTNEXP NAIL, 1-5 09/08/2012 24229-JDECVZK NAIL, 1-5 09/10/2016 93722-Lhwrzovd Plate 09/08/2012 94714-Psjfqjjj Plate 05/29/2015 37688-Juuixxat Plate 03/13/2011 42964-Jfovxcwq Plate 08/08/2011 03387-IGUH SKIN LESIONS, 2 TO 4 09/11/19 17 60636-EFTH SKIN LESIONS, 2 TO 4 11/05/19 19 67785-WPXI SKIN LESIONS, 2 TO 4 05/19/20 19 59541-OGKX NAIL(S) 09/10/2016 94196-HMJC NAIL(S) 09/08/2012 53272-WTFU NAIL(S) 12/08/2011 60139-ZAHE NAIL(S) 03/08/2012 67620-MOZQ NAIL(S) 09/11/2011 56359-XESR NAIL(S) 06/12/2011 71937-RWJP NAIL(S) 03/13/2011 D8436-SWDKNCFR DYSTROPHIC NAILS ANY # O1867-JTBOIGRT DYSTROPHIC NAILS ANY # Insurance Providers Payer Name Payer Address Payer Phone Subscriber Number Group Number Insured Name Patient Relationship to Insured Coverage Start Date Coverage End Date Medicare National Govt Svcs Inc [address] [place] [address] [id number] Zacarias Poole Self - patient is the insured [employer] Blue Shield [address] [place] [address] [id number] Zacarias Poole Self - patient is the insured Medical (General) History Medical History History ICD Code hypertension diabetic Pacemaker 2008 Kidney disease Surgical History Surgery Date(Month/Year) cardiac pacemaker 2008 tonsillectomy 194
[2025-04-06 13:18] LABS: Appearance Urine Clear; Glucose Urine UA Negative (Negative); PH 6.5 (5.0-9.0); Specific Gravity - Urine 1.010 (1.005-1.025)
== END 2025-04-06 10:27 | disposition home or self-care (01) ==
LOC: HO.HMGCLDS 10:26
PROVIDERS: PCP Internal Medicine; Visit Provider Internal Medicine
DX: R30.0 Dysuria (principal)
CPT/HCPCS: 81003

== ENCOUNTER 2025-04-17 09:34 | Outpatient (REF) | payer MEDICARE, SELFPAY ==
--- OUTSIDE RECORDS SUMMARY | 2025-04-17 10:47 | XMS_ITS | Patient Health Record ---
Author Organization [facility] Address [address] [place] [address] Care Team Providers Care Cras Name Role Phone Nestor Almanza Primary Care Provider Armin Monsalve Unavailable [phone] Allergies Allergen (clinical drug ingredient) Drug/Non Drug [...] atherosclerosis of arteries of lower limbs (disorder) (79835071019087097 ) Unspecified atherosclerosis of [place] arteries of extremities, bilateral legs (I70.203) Active confirmed Problem Acquired hammer toe of right foot (2002916566216538) Other hammer toe(s) (acquired), right foot (M20.41) Active confirmed Problem Acquired hammer toe of left foot (9081675402414081) Other hammer toe(s) (acquired), left foot (M20.42) Active confirmed Problem Neurologic disorder 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 II diabetes mellitus (560606384) Type 2 diabetes mellitus with other diabetic neurological complication (E11.49) Active confirmed Plan Of Treatment Pending Test Test Name Order Date X ray : Foot, left 3V 07/07/2018 68096-QMVIOGZ NAIL, 1-5 03/13/2011 14931-DDFMYSO NAIL, 1-5 06/12/2011 19598-UMTPNMN NAIL, 1-5 09/11/2011 20010-QBKMIGP NAIL, 1-5 12/08/2011 07324-MQLTBLU NAIL, 1-5 03/08/2012 04077-TWMFUZG NAIL, 1-5 09/08/2012 05113-DRZHRKV NAIL, 1-5 09/10/2016 78780-Yufuxddv Plate 09/08/2012 37100-Psnnelpc Plate 05/29/2015 58181-Ukkolicb Plate 03/13/2011 86489-Fcxfmxyo Plate 08/08/2011 23982-SCES SKIN LESIONS, 2 TO 4 09/11/19 17 47718-KEBU SKIN LESIONS, 2 TO 4 11/05/19 19 83179-ZYSR SKIN LESIONS, 2 TO 4 05/19/20 19 56028-NBLW NAIL(S) 09/10/2016 84868-CZID NAIL(S) 09/08/2012 07902-LTXR NAIL(S) 12/08/2011 36662-TEOA NAIL(S) 03/08/2012 99010-TJWC NAIL(S) 09/11/2011 42287-DJDP NAIL(S) 06/12/2011 82203-ALXK NAIL(S) 03/13/2011 C8203-UYATYNMW DYSTROPHIC NAILS ANY # C0519-GADUDUOK DYSTROPHIC NAILS ANY # Insurance Providers Payer Name Payer Address Payer Phone Subscriber Number Group Number Insured Name Patient Relationship to Insured Coverage Start Date Coverage End Date Medicare National Govt Svcs Inc [address] [place] [address] [id number] Zacarias Poole Self - patient is the insured [employer] Blue [employer] [address] [place] [address] [id number] Zacarias Poole Self - patient is the insured Medical (General) History Medical History History ICD Code hypertension diabetic Pacemaker 2008 Kidney disease Surgical History Surgery Date(Month/Year) cardiac pacemaker 2008 tonsillectomy 194
[2025-04-17 14:03] LABS: Parathyroid Hormone Intact 76.3 pg/mL (8.7-77.1)
[2025-04-17 14:33] LABS: Anion Gap 13 (12-20); Blood Urea Nitrogen 25 mg/dL (9-16); Calcium 10.0 mg/dL (8.4-10.2); Carbon Dioxide 28 mmol/L (22-29); Chloride 103 mmol/L (96-108); Estimated Glomerular Filt Rate 23; Potassium 3.4 mmol/L (3.3-5.1); Sodium 141 mmol/L (135-145)
== END 2025-04-17 09:35 | disposition home or self-care (01) ==
LOC: HO.HMGCLDS 09:34
PROVIDERS: Absent Provider Internal Medicine Hypertension Specialist; PCP Internal Medicine; Visit Provider Internal Medicine
DX: N18.4 Chronic kidney disease, stage 4 (severe) (principal)
CPT/HCPCS: 36415; 80048; 83970; 84100

== ENCOUNTER 2025-04-21 10:36 | Outpatient (AMB) | payer MEDICARE, SELFPAY ==
[2025-04-21 10:47] VITALS: BP 122/68; PULSE 60; O2SAT 96; BMI 28.6
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
== END 2025-04-21 11:20 | disposition home or self-care (01) ==
LOC: HO.HMCH 10:37
PROVIDERS: PCP Internal Medicine; Visit Provider Internal Medicine
DX: I12.9 Hypertensive chronic kidney disease with stage 1 through stage 4 chronic kidney disease, or unspecified chronic kidney disease (principal); E11.65 Type 2 diabetes mellitus with hyperglycemia; I48.0 Paroxysmal atrial fibrillation; N18.4 Chronic kidney disease, stage 4 (severe); E78.00 Pure hypercholesterolemia, unspecified; I25.10 Atherosclerotic heart disease of native coronary artery without angina pectoris; Z95.0 Presence of cardiac pacemaker

== ENCOUNTER → 2025-04-21 10:36 | Outpatient (BNVA) | payer MEDICARE, SELFPAY | PROVIDERS: PCP Internal Medicine; Visit Provider Internal Medicine | DX: E11.65 Type 2 diabetes mellitus with hyperglycemia (principal); E11.22 Type 2 diabetes mellitus with diabetic chronic kidney disease; I12.9 Hypertensive chronic kidney disease with stage 1 through stage 4 chronic kidney disease, or unspecified chronic kidney disease; N18.4 Chronic kidney disease, stage 4 (severe); E78.00 Pure hypercholesterolemia, unspecified; I25.10 Atherosclerotic heart disease of native coronary artery without angina pectoris; I48.0 Paroxysmal atrial fibrillation; G89.29 Other chronic pain; L98.9 Disorder of the skin and subcutaneous tissue, unspecified; R30.0 Dysuria; M51.369 Other intervertebral disc degeneration, lumbar region without mention of lumbar back pain or lower extremity pain; Z95.0 Presence of cardiac pacemaker | CPT/HCPCS: 83036; 99212 ==

== ENCOUNTER 2025-04-27 10:42 | Outpatient (AMB) | payer MEDICARE, SELFPAY ==
--- NOTE | 2025-04-27 10:45 | HO.NEPHOV ---
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: No Accompanied by: Self / Same As Patient Allergies valsartan (From DIOVAN) Allergy (Mild, Verified 04/27/25 10:46) ITCHING losartan Allergy (Unknown, Verified 04/27/25 10:46) itch lisinopril (LISINOPRIL) Adverse Reaction (Intermediate, Verified 04/27/25 10:46) LEG CRAMPS., leg cramps Medication List - Last Reconciled 04/27/25 by Asif Domínguez MD atenolol 25 mg PO DAILY blood sugar diagnostic 1 strip miscellaneous QID 30 days blood-glucose sensor (FreeStyle Siomara 2 Plus Sensor device) As directed hydrochlorothiazide 25 mg PO DAILY PRN 90 days insulin aspart (niacinamide) 100 unit/mL (3 mL) (Fiasp FlexTouch U-100 Insulin) 6 units with breakfast, 7 units with lunch and 8 units with dinner. subcut 3 times a day; 90 days insulin degludec (Tresiba FlexTouch U-100 insulin) 8 units (0.08 mL) subcut BEDTIME 90 days latanoprost 0.005% 1 drp ophthalmic (eye) DAILY [Siomara 2 glucose monitor As directed] [Siomara Freestyle glucose monitor As directed] lidocaine 4% (Aspercreme (lidocaine)) 1 patch topical DAILY PRN oxycodone 10 mg PO QID PRN pen needle, diabetic 4 times a day [Pro REnal +D As directed] [RENADRYL As directed] saw palmetto 160 mg PO DAILY HPI Comments Details: 82-year-old male with diabetes mellitus coronary artery disease atrial fibrillation hypercholesterolemia chronic kidney disease hypertension lumbar degenerative disc disease on narcotic pain medication Referred for CKD He was previously seen by Dr. Franklin but he has decided to switch his provider Baseline serum creatinine is around 2.2 mg/dL All the labs for the last 3 years was reviewed and serum creatinine has been between 2.0 and 2.4 mg/dL. No significant proteinuria based on the recent urine protein creatinine ratio Urine sediments were benign History of hypertension. BP has been high in the office but home blood pressure readings are excellent Blood sugar has been well controlled with a recent A1c of 5.3% Two years ago ultrasound showed normal-appearing kidneys without hydronephrosis and there was slightly elevated postvoid residual. He denies any urinary complaints like urgency increased frequency or hesitancy. No significant edema. No shortness of breath no chest. No nausea or vomiting. He is complaining of fatigue. He is retired. He lives alone. No history of any significant smoking alcohol abuse 02/05/24 Feels tired; NO dyspnea 05/03/24: Feels about the same.Frequent UTIs - seen by 08/30/24 No new issues ;Home BP 105/60 ;Gout in feet 01/03/25 ;Overall doing ok ; Feels tired. No dyspnea 04/27/25 The patient is an 84 year old individual presenting for a follow-up visit for management of chronic conditions. The patient reports feeling pretty good and denies any specific problems. The patient has a history of nocturia, previously waking up to 8 times per night to urinate, which has improved to about 3 times per night after starting an [id number]-sucqhsm supplement. The patient reports that clinically, everything is status quo. The patient's medical history includes chronic kidney disease, with kidney function that has been stable in the 23-25% range for the last few years. The patient also has diabetes, for which the patient monitors blood sugar and tries to keep it from fluctuating, believing it eases the load on the kidneys. The patient monitors blood pressure at home, with typical readings of 120/70 mmHg. The patient reports experiencing low energy, which is attributed to age and multiple chronic conditions. The patient has a history of stable mild anemia and has been taking an iron supplement. Past medical history is also significant for coronary artery disease and atrial fibrillation, for which a pacemaker was implanted about 8 years ago. The patient is due for a second battery change, with the current battery having about 6 months of life remaining, and monitors the device monthly from home. [facility] Medical History CKD (chronic kidney disease) Frequent UTI Cardiomyopathy Cardiac pacemaker in situ Complete heart block DDD (degenerative disc disease), lumbar CAD (coronary artery disease) BPH (benign prostatic hyperplasia) Chronic kidney disease (CKD) stage G4/A2, severely decreased glomerular filtration rate (GFR) between 15-29 mL/min/1.73 square meter and albuminuria creatinine ratio between 30-299 mg/g Hypercholesterolemia Paroxysmal atrial fibrillation Hypertension 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 2 diabetes mellitus intermediate (current) 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 Dyslipidemia CKD (chronic kidney disease) stage 4, GFR 15-29 ml/min Surgical History History of permanent cardiac pacemaker placement Hx of inguinal hernia surgery Family History Father Pancreatic cancer Mother Diabetes Alzheimers disease Social History Household Members: None Housing: House Alcohol intake: never Patient Tobacco Use Status: Never used Tobacco Tobacco use type: Cigarette e-Cigarette/Vaping Use: Never Used Second Hand Smoke Exposure: No service: No Current occupational status: retired Current occupational exposures/hazards: No Cognitive needs: Yes (walker ) Hearing needs: Yes (Hearing aide) Vision needs: Yes Physical Exam Vital Signs: Last Vital Signs Pulse 61 04/27/25 10:46 BP 130/70 04/27/25 10:46 Pulse Ox 98 04/27/25 10:46 Oxygen Delivery Method Room Air 04/27/25 10:46 BMI result Body Mass Index 28.7 Results Reviewed Nephrology Results: Hgb, (14.0-18.0) 12.2 g/dl L 02/26/25 WBC, (4.8-10.8) 5.5 X10*3/uL 02/26/25 Plt Count, (160-400) 116 X10*3/uL L 02/26/25 Sodium, (135-145) 141 mmol/L 04/17/25 Potassium, (3.3-5.1) 3.4 mmol/L 04/17/25 Chloride, (96-108) 103 mmol/L 04/17/25 Carbon Dioxide, (22-29) 28 mmol/L 04/17/25 BUN, (9-16) 25 mg/dL H 04/17/25 Creatinine, (0.5-1.4) 2.62 mg/dL H 04/17/25 Calcium, (8.4-10.2) 10.0 mg/dL 04/17/25 Phosphorus, (2.7-4.5) 3.5 mg/dL 04/17/25 PTH Intact, (8.7-77.1) 76.3 pg/mL 04/17/25 Urine Protein, (Neg-Trace) Negative mg/dL 04/06/25 Renal US 11/06/23 Assessment & Plan Assessment & Plan (1) CKD (chronic kidney disease) stage 4, GFR 15-29 ml/min: Code(s): N18.4 - Chronic kidney disease, stage 4 (severe) Category: Medical Plan 84-year-old man with a history of longstanding hypertension diabetes mellitus with stable chronic kidney disease. 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 He has no significant proteinuria. Over the last 3 years renal function has been relatively stable. eGFR is about 23-25 ml/mt Can use HCTZ PRN No obstructive uropathy based on sonogram Hypertension Blood pressure is well controlled at this time based on home readings. Diabetes mellitus Blood sugar seems well controlled Mild anemia Recent hemoglobin -12.2 and stable Follow renal panel Mild secondary Hyperparathyroidism- intact PTH mildly elevated and recent pth is 76 - shall monitor Continue monitoring blood pressure adn blood sugar at home. Stay on low-sodium diet Continue to avoid nephrotoxic agents including NSAIDs. Follow renal function closely No changes were made today Orders: Orders Complete Blood Count no Diff 3 Months N18.4 - Chronic kidney disease, stage 4 (severe) Basic Metabolic Panel 3 Months N18.4 - Chronic kidney disease, stage 4 (severe) Coding Level of Care Code Est Pt Level 4 (89743) Diagnoses CKD (chronic kidney disease) stage 4, GFR 15-29 ml/min N18.4
[2025-04-27 10:46] VITALS: BP 130/70; PULSE 61; O2SAT 98; BMI 28.7
--- OUTSIDE RECORDS SUMMARY | 2025-04-27 16:09 | XMS_ITS | Patient Health Record ---
Author Organization [facility] Address [address] [place] [address] Care Team Providers Care Software Sales Manager Name Role Phone Nestor Almanza Primary Care Provider Armin Monsalve Unavailable [phone] Allergies Allergen (clinical drug ingredient) Drug/Non Drug [...] atherosclerosis of arteries of lower limbs (disorder) (21470118645946496 ) Unspecified atherosclerosis of [place] arteries of extremities, bilateral legs (I70.203) Active confirmed Problem Acquired hammer toe of right foot (0892407998668589) Other hammer toe(s) (acquired), right foot (M20.41) Active confirmed Problem Acquired hammer toe of left foot (6026307713670586) Other hammer toe(s) (acquired), left foot (M20.42) Active confirmed Problem Neurologic disorder 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 II diabetes mellitus (698470245) Type 2 diabetes mellitus with other diabetic neurological complication (E11.49) Active confirmed Plan Of Treatment Pending Test Test Name Order Date X ray : Foot, left 3V 07/07/2018 [id number] NAIL, 1-5 03/13/2011 67014-MTOKJOI NAIL, 1-5 06/12/2011 27018-UKOSOUK NAIL, 1-5 09/11/2011 07221-SDYLORH NAIL, 1-5 12/08/2011 89549-ONBIMGS NAIL, 1-5 03/08/2012 64186-AFNBLLJ NAIL, 1-5 09/08/2012 94015-UTTLMNW NAIL, 1-5 09/10/2016 42887-Wommutri Plate 09/08/2012 10264-Eckelxpn Plate 05/29/2015 33025-Rludigvx Plate 03/13/2011 15991-Hfuhnokl Plate 08/08/2011 46290-BMKI SKIN LESIONS, 2 TO 4 09/11/19 17 14045-MXVE SKIN LESIONS, 2 TO 4 11/05/19 19 92899-YUXK SKIN LESIONS, 2 TO 4 05/19/20 19 31953-IHDZ NAIL(S) 09/10/2016 43841-FWJP NAIL(S) 09/08/2012 98318-XFOU NAIL(S) 12/08/2011 45177-DHSE NAIL(S) 03/08/2012 96550-LVZY NAIL(S) 09/11/2011 37478-VZJP NAIL(S) 06/12/2011 81618-CICW NAIL(S) 03/13/2011 [id number] DYSTROPHIC NAILS ANY # T5584-BQSZHEIM DYSTROPHIC NAILS ANY # Insurance Providers Payer Name Payer Address Payer Phone Subscriber Number Group Number Insured Name Patient Relationship to Insured Coverage Start Date Coverage End Date Medicare National Govt Svcs Inc [address] [place] [address] [id number] Zacarias Poole Self - patient is the insured [employer] Blue Shield [address] [place] [address] [id number] Zacarias Poole Self - patient is the insured Medical (General) History Medical History History ICD Code hypertension diabetic Pacemaker 2008 Kidney disease Surgical History Surgery Date(Month/Year) cardiac pacemaker 2008 tonsillectomy 194
== END 2025-04-27 11:00 | disposition home or self-care (01) ==
LOC: HO.HKA 10:43
PROVIDERS: PCP Internal Medicine; Visit Provider Internal Medicine Hypertension Specialist
DX: N18.4 Chronic kidney disease, stage 4 (severe) (principal)
CPT/HCPCS: 99214

== ENCOUNTER → 2025-04-27 10:42 | Outpatient (BNVA) | payer MEDICARE, SELFPAY | PROVIDERS: PCP Internal Medicine; Visit Provider Internal Medicine Hypertension Specialist | DX: N18.4 Chronic kidney disease, stage 4 (severe) (principal) | CPT/HCPCS: 99212 ==

== ENCOUNTER 2025-05-30 13:23 | Outpatient (AMB) | payer MEDICARE, SELFPAY ==
[2025-05-30 13:33] VITALS: BP 142/66; PULSE 60; BMI 27.9
--- NOTE | 2025-05-30 13:33 | A.OFFVIS_ITS ---
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 He said few months ago he had a Ed from in his device and he was not sure as to what was going on. He had not call or office. He has no cardiac symptoms. Denies any chest pain or shortness of breath. No lightheadedness, syncope. No prolonged palpitation irregular heartbeat. He has last echocardiogram had shown preserved LV ejection fraction. [facility] Medical History CKD (chronic kidney disease) Frequent UTI Cardiomyopathy Cardiac pacemaker in situ Complete heart block DDD (degenerative disc disease), lumbar CAD (coronary artery disease) BPH (benign prostatic hyperplasia) Chronic kidney disease (CKD) stage G4/A2, severely decreased glomerular filtration rate (GFR) between 15-29 mL/min/1.73 square meter and albuminuria creatinine ratio between 30-299 mg/g Hypercholesterolemia Paroxysmal atrial fibrillation Hypertension 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 2 diabetes mellitus intermediate (current) 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 Dyslipidemia CKD (chronic kidney disease) stage 4, GFR 15-29 ml/min Surgical History History of permanent cardiac pacemaker placement Hx of inguinal hernia surgery Family History Father Pancreatic cancer Mother Diabetes Alzheimers disease Social History Household Members: None Housing: House Alcohol intake: never Patient Tobacco Use Status: Never used Tobacco Tobacco use type: Cigarette e-Cigarette/Vaping Use: Never Used Second Hand Smoke Exposure: No service: No Current occupational status: retired Current occupational exposures/hazards: No Cognitive needs: Yes (walker ) Hearing needs: Yes (Hearing aide) Vision needs: Yes Review of Systems Const Denies chills, Denies fatigue, Denies fever(s), Denies frequent falls, Denies weakness, Denies weight gain and Denies weight loss ENT Denies dizziness Card Denies chest pain, Denies leg edema, Denies lightheadedness, Denies palpitations, Denies dyspnea, Denies dyspnea on exertion, Denies orthopnea and Denies other (loss of consciousness) Resp Denies cough, Denies dyspnea and Denies dyspnea on exertion GI Denies hematochezia and Denies change in stool character Musc Denies abnormal gait, Denies muscle weakness, Denies numbness, Denies radiating pain into limb and Denies tingling Neuro Denies abnormal gait, Denies dizziness, Denies frequent falls, Denies numbness, Denies tingling and Denies weakness Endo Denies fatigue and Denies palpitations Physical Exam Vital Signs: Last Vital Signs Pulse 60 05/30/25 13:33 BP 142/66 H 05/30/25 13:33 BMI result Body Mass Index 27.9 Const General: cooperative, comfortable, no acute distress, alert, awake and tired appearing Nutritional Appearance: average body habitus and other ( frail elderly man) Orientation/consciousness: patient oriented x3 Limitations: ambulation with walker Neck Neck: Yes trachea midline, Yes supple and Yes no JVD Resp Effort & Inspection: normal respiratory effort Auscultation: clear to auscultation bilaterally Cardio Jugular venous distension: no JVD Palpation: normal PMI Rate: regular rate Rhythm: regular rhythm Heart sounds: S1 normal heart sound present, S2 normal heart sound present, no click, no gallops, no murmurs and no rubs Skin General skin exam: no rashes or lesions noted and ecchymosis Neuro General: patient oriented x3 and no focal motor deficits Extrem General: Yes no clubbing, cyanosis or edema Office Procedures Cardiac Device Check Cardiac Device Check Details: Dual-chamber Medtronic pacemaker in place. Programmed in DDD at 60 beats per minute. Ventricularly pacer dependent. Atrial ventricular pacing thresholds adequate. Battery life is at 2 months. No arrhythmias noted. Pacing lead impedance is stable. 35255-RH Cardiac Device Check, pacemaker dual lead Procedure code (CPT) selection complete Assessment & Plan Assessment & Plan (1) Cardiac pacemaker in situ: Code(s): Z95.0 - Presence of cardiac pacemaker Category: Medical Plan: Cardiac pacemaker in-situ for complete heart block. Patient pacer dependent on the ventricular side. Will continue monitor. His battery life is close to replacement. Will follow up in 6 weeks time. (2) Paroxysmal atrial fibrillation: Comment: 05/2020 cardiology notes on anticoagulation- decline by patient Code(s): I48.0 - Paroxysmal atrial fibrillation Category: Medical Plan: Paroxysmal atrial fibrillation which has not recurred for many years on the pacer telemetry. Will continue monitor by pacer telemetry. No other interventions required. Continue to avoid stimulants. No indication for oral anticoagulation therapy which patient declines. Continue atenolol therapy. (3) CAD (coronary artery disease): Code(s): I25.10 - Atherosclerotic heart disease of [place] coronary artery without angina pectoris Category: Medical Qualifiers: Coronary Disease-Associated Artery/Lesion type: [place] artery [place] vs. transplanted heart: [place] heart Associated angina: without angina Qualified Code(s): I25.10 - Atherosclerotic heart disease of [place] coronary artery without angina pectoris Plan: CAD without any new symptoms. Continue aggressive risk factor modification. Diabetes pursued through your office with goal hemoglobin A1c less than 7%. Blood pressure is well optimized. (4) Cardiomyopathy: Code(s): I42.9 - Cardiomyopathy, unspecified Category: Medical Qualifiers: Cardiomyopathy type: unspecified Qualified Code(s): I42.9 - Cardiomyo tashi, unspecified Plan: Prior cardiomyopathy many years ago. Most recent echocardiogram shows normalized LV ejection fraction. He has could be Russell related to Mibi therapy with the atenolol. Currently requires no further therapy. Will follow up in the clinic 6 weeks time, sooner PRN. Thank you for allowing me to partake in his care Coding Level of Care Code Est Pt Level 4 (40576) Diagnoses Cardiac pacemaker in situ Z95.0 Paroxysmal atrial fibrillation I48.0 Coronary artery disease involving [place] coronary artery of [place] heart without angina pectoris I25.10 Coronary Disease-Associated Artery/Lesion type: [place] artery [place] vs. transplanted heart: [place] heart Associated angina: without angina Cardiomyopathy, unspecified type I42.9 Cardiomyopathy type: unspecified CPT Codes Cardiac Device Check - Cardiac Device 2: 23909-GF Cardiac Device Check, pacemaker dual lead ([id number])
--- OUTSIDE RECORDS SUMMARY | 2025-05-30 14:34 | XMS_ITS | Patient Health Record ---
Author Organization [facility] Address [address] [place] [address] Care Team Providers Care Slot Service Specialist Name Role Phone Nestor Almanza Primary Care Provider Armin Monsalve Unavailable [phone] Allergies Allergen (clinical drug ingredient) Drug/Non Drug [...] atherosclerosis of arteries of lower limbs (disorder) (84909357999692833 ) Unspecified atherosclerosis of [place] arteries of extremities, bilateral legs (I70.203) Active confirmed Problem Acquired hammer toe of right foot (4480660902743501) Other hammer toe(s) (acquired), right foot (M20.41) Active confirmed Problem Acquired hammer toe of left foot (5882340902790316) Other hammer toe(s) (acquired), left foot (M20.42) Active confirmed Problem Neurologic disorder 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 II diabetes mellitus (954902392) Type 2 diabetes mellitus with other diabetic neurological complication (E11.49) Active confirmed Plan Of Treatment Pending Test Test Name Order Date X ray : Foot, left 3V 07/07/2018 [id number] NAIL, 1-5 03/13/2011 78217-EGDXTJV NAIL, 1-5 06/12/2011 41332-MQWMHGR NAIL, 1-5 09/11/2011 65178-WEOYCFY NAIL, 1-5 12/08/2011 98885-QVNXALP NAIL, 1-5 03/08/2012 68180-ZLWHKRJ NAIL, 1-5 09/08/2012 49425-DVFCSIK NAIL, 1-5 09/10/2016 73005-Rweysslc Plate 09/08/2012 48130-Wzpymujm Plate 05/29/2015 55871-Nyiffxzx Plate 03/13/2011 10352-Lvkwvjpo Plate 08/08/2011 42571-FQIQ SKIN LESIONS, 2 TO 4 09/11/19 17 83049-XOWH SKIN LESIONS, 2 TO 4 11/05/19 19 70130-ISZP SKIN LESIONS, 2 TO 4 05/19/20 19 36122-VEEN NAIL(S) 09/10/2016 33291-YNEL NAIL(S) 09/08/2012 15985-JZLH NAIL(S) 12/08/2011 65810-EUHU NAIL(S) 03/08/2012 53187-GQPF NAIL(S) 09/11/2011 76412-PTTZ NAIL(S) 06/12/2011 11531-PYXI NAIL(S) 03/13/2011 Z6457-GWZUGJHH DYSTROPHIC NAILS ANY # [id number]-ANTXTTYU DYSTROPHIC NAILS ANY # Insurance Providers Payer Name Payer Address Payer Phone Subscriber Number Group Number Insured Name Patient Relationship to Insured Coverage Start Date Coverage End Date Medicare National Govt Svcs Inc [address] [place] [address] [id number] Zacarias Poole Self - patient is the insured [employer] [address] [place] [address] [id number] Zacarias Poole Self - patient is the insured Medical (General) History Medical History History ICD Code hypertension diabetic Pacemaker 2008 Kidney disease Surgical History Surgery Date(Month/Year) cardiac pacemaker 2008 tonsillectomy 194
== END 2025-05-30 14:04 | disposition home or self-care (01) ==
LOC: HO.HCS 13:24
PROVIDERS: PCP Internal Medicine; Visit Provider Internal Medicine Cardiovascular Disease
DX: I48.0 Paroxysmal atrial fibrillation (principal); Z95.0 Presence of cardiac pacemaker; I25.10 Atherosclerotic heart disease of native coronary artery without angina pectoris; I42.9 Cardiomyopathy, unspecified
CPT/HCPCS: 93280; 99214

== ENCOUNTER → 2025-05-30 13:23 | Outpatient (BNVA) | payer MEDICARE, SELFPAY | PROVIDERS: PCP Internal Medicine; Visit Provider Internal Medicine Cardiovascular Disease | DX: I48.0 Paroxysmal atrial fibrillation (principal); I25.10 Atherosclerotic heart disease of native coronary artery without angina pectoris; I42.9 Cardiomyopathy, unspecified; E11.9 Type 2 diabetes mellitus without complications; Z95.0 Presence of cardiac pacemaker; Z79.899 Other long term (current) drug therapy | CPT/HCPCS: 93280; 99212 ==